=== PATIENT | female | born 1960 | race Caucasian/White ===

== ENCOUNTER 2018-03-12 11:12 | Emergency (ER) | payer OTHER, BC ==
--- NOTE | 2018-03-12 11:16 | PDOC ---
History of Present Illness - General Chief Complaint: Pain Stated Complaint: LEFT RIB PAIN History Source: Patient Exam Limitations: No Limitations - History of Present Illness Initial Comments: 03/12/18 11:13 57 yo f no pmhx here with c/o right sided rib pain. pt states was breaking up a fight between her dogs, and she fell hitting ribs on the dresser, now c/o severe left sided pain pain. happened at 3 in am, pain worse with movement, and deep inspiration. no f/c no leg swelling. no other injuries in fall. no loc no head trauma. 03/12/18 11:30 Past History - Past Medical History Allergies/Adverse Reactions: Allergies Allergy/AdvReac Type Severity Reaction Status Date / Time No Known Drug Allergies Allergy Unknown Verified 03/12/18 11:14 venom-honey bee Allergy Verified 03/12/18 11:14 [bee venom (honey bee)] SCALLOPS Allergy Unknown Hives Uncoded 03/12/18 11:21 Home Medications: Ambulatory Orders Duloxetine HCl [Cymbalta -] 60 mg PO BID 02/28/13 Valsartan [Diovan] 160 mg PO DAILY 02/28/13 Atorvastatin Ca [Lipitor] 10 mg PO HS 03/19/13 Hydrochlorothiazide [Hctz -] 25 mg PO DAILY 09/22/13 Flecainide Acetate 100 mg PO DAILY 03/12/18 Ibuprofen [Motrin -] 600 mg PO TID PRN #90 tablet MDD 3 03/12/18 Anemia: Yes Asthma: No Cancer: No Cardiac Disorders: Yes (MVP, BIGEMENY) CVA: No COPD: No CHF: No Dementia: No Diabetes: No GI Disorders: Yes (HIATAL HERNIA S/P SX) Disorders: No HTN: Yes Hypercholesterolemia: Yes Liver Disease: No Seizures: No Thyroid Disease: No - Surgical History Abdominal Surgery: Yes (HIATAL HERNIA) Appendectomy: No Cardiac Surgery: No Cholecystectomy: No Lung Surgery: (THORACENTESIS 2010) Neurologic Surgery: Yes Orthopedic Surgery: Yes (R. Knee, L. Ankle, L. Wrist, L. Knee) - Family Disease History Family Disease History: Heart Disease: Grandparents (mat chf), Father (htn), Mother (CHF) - Immunization History Td Vaccination: Yes Immunization Up to Date: Yes - Suicide/Smoking/Psychosocial Hx Smoking Status: No Smoking History: Never smoked Years of Tobacco Use: 0 Have you smoked in the past 12 months: No Number of Cigarettes Smoked Daily: 0 Cigars Per Day: 0 Hx Alcohol Use: Yes (SOCIAL) Drug/Substance Use Hx: No Substance Use Type: None Hx Substance Use Treatment: No Review of Systems - Review of Systems Constitutional: No: Chills, Diaphoresis HEENTM: No: Eye Pain Respiratory: Yes: Other (rib pain). No: Cough Cardiac (ROS): Yes: Chest Pain. No: Edema, Irregular Heart Rate ABD/GI: No: Abdominal Distended : No: Burning, Dysuria, Discharge Integumentary: No: Bruising, Change in Color All Other Systems: Reviewed and Negative *Physical Exam - Physical Exam Comments: 03/12/18 11:15 awake alert lungs clear bilaterally heart rrr nomrg. abd soft ntnd. ext wwp no edema. no deformity skin warm and dry. nuero alert oriented x 3. gcs 15. chest wall ttp.over left lateral ribs. no step off no crepitus. 03/12/18 11:30 Medical Decision Making - Medical Decision Making 03/12/18 11:15 differential fracture, ribs, pneumothorax. plan pain control, xray with rib series, reassess. 03/12/18 12:10 xray negative for any rib fracture. will dc with incentive spirometer and motrin told to followup pcp. *DC/Admit/Observation/Transfer Diagnosis at time of Disposition: Chest wall contusion - Discharge Dispostion Disposition: HOME Condition at time of disposition: Improved - Prescriptions Prescriptions: Ibuprofen [Motrin -] 600 mg PO TID PRN #90 tablet MDD 3 PRN Reason: Pain - Referrals - Patient Instructions Printed Discharge Instructions: Rib Fracture, DI for Rib Contusion Additional Instructions: your xrays are negative for any rib fracture. however, occasionally small breaks in the anterior ribs do not show up well on xray. there is stilll a chance you have a small break in the rib where you are having pain. treatment for this is pain control and taking deep breaths often to prevent pneumonia. you should use incentive spirometer 10 times every 2 hours to prevent lung from getting an infection. you shoud also take ibuprofen 600 mg every 8 hrs as needed for pain. take with food. in addition you can take tylenol 500 mg every 6 hrs. return for worsenig pain., shortness of breath, fever or any concerns. you should follow up with your primary doctor. call to schedule. - Post Discharge Activity
[2018-03-12] MEDS ORDERED: KETOROLAC TROMETHAMINE 30 MG/1 ML VIAL IM ONE (11:36)
[2018-03-12 11:43] VITALS: BP 114/76; PULSE 76; TEMP 98.2; BMI 27.3
[2018-03-12] MEDS ORDERED: KETOROLAC TROMETHAMINE 30 MG/1 ML VIAL ONE (11:52)
== END 2018-03-12 12:23 | disposition home or self-care (01) ==
LOC: FER 11:12
PROC: 3E0233Z Introduction of Anti-inflammatory into Muscle, Percutaneous Approach (ICD-10-PCS; principal; 2018-03-12)
DX: S20.219A Contusion of unspecified front wall of thorax, initial encounter (principal); W18.39XA Other fall on same level, initial encounter; Y93.89 Activity, other specified; Y92.89 Other specified places as the place of occurrence of the external cause
CPT/HCPCS: 71101-TC-FY; 99282-25

== ENCOUNTER 2019-05-05 18:06 | Inpatient (IN) | payer OTHER, BC ==
--- NOTE | 2019-05-05 19:10 | PDOC ---
History of Present Illness - General Chief Complaint: Syncope/Near Syncope Stated Complaint: FALL History Source: Patient Exam Limitations: No Limitations - History of Present Illness Initial Comments: 05/06/19 00:19 58 yo F with a hx of diverticulitis (last treated 1 month ago), fibromyalgia, and HTN presents to the emergency department with nausea, vomiting, abdominal pain with subsequent syncopal event. Per the patient, she states she began having her N/V symptoms at approximately 12 pm today. The patient was sitting on the toilet feeling lightheaded when she stood up and walked to the kitchen. She felt lightheaded and had a positive LOC. She believes she struck the left eyebrow against the ceramic countertop. Subsequent to the episode, she has had left facial pain and left sided temporal headache. In addition, she has LLQ and suprapubic pain that has been ongoing since 12 pm. Cramping like in nature with radiation throughout the abdomen without aggravating or relieving factors rated as 10/10. Allergies: NKDA Past History - Past Medical History Allergies/Adverse Reactions: Allergies Allergy/AdvReac Type Severity Reaction Status Date / Time No Known Drug Allergies Allergy Unknown Verified 05/05/19 18:57 venom-honey bee Allergy Verified 05/05/19 18:57 [bee venom (honey bee)] veal Allergy Severe Difficulty Uncoded 05/06/19 07:26 Breathing SCALLOPS Allergy Unknown Hives Uncoded 05/05/19 18:57 Home Medications: Ambulatory Orders Duloxetine HCl [Cymbalta -] 60 mg PO BID 02/28/13 Atorvastatin Ca [Lipitor] 20 mg PO HS 03/19/13 Hydrochlorothiazide [Hctz -] 25 mg PO DAILY 09/22/13 Flecainide Acetate 100 mg PO DAILY 03/12/18 Cyanocobalamin (Vitamin B-12) [Cyanocobalamin Injection] 1,000 mcg IJ WEEKLY Losartan Potassium [Cozaar] 100 mg PO DAILY 05/05/19 Metaxalone [Skelaxin] 800 mg PO TID PRN 05/05/19 Potassium Chloride [Klor-Con M20] 1 tab PO DAILY 05/05/19 Acetaminophen [Tylenol .Regular Strength -] 650 mg PO Q6H tablet 05/11/19 Amox-Tr/K Cl [Augmentin - 875Mg Tablet] 1 tab PO BID #10 tablet 05/11/19 Ibuprofen [Motrin -] 600 mg PO Q6H PRN tablet 05/11/19 Valacyclovir HCl [Valtrex -] 500 mg PO BID #14 tablet 05/11/19 Anemia: Yes Asthma: No Cancer: No Cardiac Disorders: Yes (MVP, BIGEMENY) CVA: No COPD: No CHF: No Dementia: No Diabetes: No GI Disorders: Yes (HIATAL HERNIA S/P SX) Disorders: No HTN: Yes Hypercholesterolemia: Yes Liver Disease: No Seizures: No Thyroid Disease: No - Surgical History Abdominal Surgery: Yes (HIATAL HERNIA) Appendectomy: No Cardiac Surgery: No Cholecystectomy: No Lung Surgery: (THORACENTESIS 2010) Neurologic Surgery: Yes Orthopedic Surgery: Yes (R. Knee, L. Ankle, L. Wrist, L. Knee) - Immunization History Td Vaccination: Yes Immunization Up to Date: Yes - Psycho Social/Smoking Cessation Hx Smoking Status: No Smoking History: Smoker current status UNK Years of Tobacco Use: 0 Have you smoked in the past 12 months: No Number of Cigarettes Smoked Daily: 0 Cigars Per Day: 0 Hx Alcohol Use: Yes (SOCIAL) Drug/Substance Use Hx: No Substance Use Type: None Hx Substance Use Treatment: No Review of Systems - Review of Systems Able to Perform ROS?: Yes Is the patient limited [place]ian proficient: No Constitutional: Yes: Chills, Diaphoresis, Fever. No: Weakness HEENTM: No: Eye Pain, Ear Pain, Nose Pain, Throat Pain, Mouth Pain Respiratory: No: Cough, Shortness of Breath, SOB with Exertion Cardiac (ROS): Yes: Lightheadedness, Syncope. No: Chest Pain, Palpitations, Chest Tightness ABD/GI: No: Constipated, Diarrhea, Nausea, Rectal Bleeding, Vomiting, Tarry Stools : Yes: Incontinence. No: Dysuria, Flank Pain, Hematuria Musculoskeletal: No: Back Pain, Joint Pain, Neck Pain Integumentary: No: Bruising, Erythema, Rash Neurological: Yes: Headache. No: Numbness, Tingling, Tremors Psychiatric: No: Change in Appetite Endocrine: No: Unexplained Weight Gain, Unexplained Weight Loss Hematologic/Lymphatic: No: Anemia *Physical Exam - Vital Signs Last Vital Signs Temp Pulse Resp BP Pulse Ox 76 26 H 127/60 98 05/05/19 18:55 05/05/19 18:55 05/05/19 18:55 05/05/19 18:55 - Physical Exam General Appearance: Yes: Nourished, Appropriately Dressed, Mild Distress, Other (<0.5 cm laceration to the left eyebrow superior/lateral. no contusions or depressions noted.). No: Intoxicated, Obese HEENT: positive: EOMI, YONNY, Normal ENT Inspection, Normal Voice, Symmetrical, TMs Normal, Pharynx Normal, Hearing Grossly Normal, Other (tenderness to palpation along the superior eyebrow on the left side. no contusions noted. mild swelling.). negative: Pale Conjunctivae, Scleral Icterus (R), Scleral Icterus (L), Muffled/Hoarse voice, Pharyngeal Erythema, Tonsillar Exudate, Tonsillar Erythema, Nasal Congestion, Rhinorrhea, Sinus Tenderness, Excessive drooling Neck: positive: Trachea midline, Supple. negative: Tender, Lymphadenopathy (R) , Lymphadenopathy (L), Tender lateral, Tender midline Respiratory/Chest: positive: Lungs Clear, Normal Breath Sounds. negative: Chest Tender, Respiratory Distress, Accessory Muscle Use, Paradoxal Breathing, Crackles, Rales, Rhonchi, Stridor, Wheezing Cardiovascular: positive: Regular Rhythm, Regular Rate, S1, S2. negative: Systolic Murmur Gastrointestinal/Abdominal: positive: Normal Bowel Sounds, Tender (Tender in the following areas with palpation: LUQ, LLQ, suprapubic, periumbilical, and epigastric region), Flat, Soft, Rebound. negative: Distended, Guarding Lymphatic: negative: Adenopathy Musculoskeletal: positive: Normal Inspection, Other (no step offs noted. no obvious ecchymosis to the back). negative: CVA Tenderness, Vertebral Tenderness Extremity: positive: Normal Capillary Refill, Normal Inspection, Normal Range of Motion. negative: Tender, Swelling, Calf Tenderness Integumentary: positive: Normal Color, Dry, Warm. negative: Swelling, Ecchymosis Neurologic: positive: roller gold leaf II-XII NML intact, Fully Oriented, Alert, Normal Mood/ Affect, Normal Response, Motor Strength 5/5. negative: EOM Palsy, Facial Droop , Sensory Deficit ED Treatment Course - LABORATORY CBC & Chemistry Diagram: 05/10/19 07:34 12/18/19 07:34 Medical Decision Making - Medical Decision Making 58 yo F with a hx of diverticulitis (last treated 1 month ago), fibromyalgia, and HTN presents to the emergency department with nausea, vomiting, abdominal pain with subsequent syncopal event. Initial vitals; Initial Vital Signs Pulse Resp BP Pulse Ox 76 26 H 127/60 98 05/05/19 18:55 05/05/19 18:55 05/05/19 18:55 05/05/19 18:55 Work up: patient presents to the emergency department s/p syncope after experiencing N/V earlier in the day with associative abdominal pain similar to her previous diverticulitis. Syncope ddx: cardiogenic vs metabolic vs hypovolemia vs infectious vs neurogenic. Likely the patient syncopized from infectious etiology given her concurrent N/V with abdominal pain. Will work up cardiac with EKG and enzymes. Will obtain cbc, cmp, lactic acid (to assess possible ischemia?), UA, urine culture, CT head, cervical spine, and neck. Will obtain Abdomen and pelvis CT with IV contrast to assess abdominal pain. ddx includes colitis vs diverticulitis (patient states this pain is similar to her previous episode) vs UTI vs pyelonephritis vs nephrolithiasis. Laboratory Tests 05/05/19 05/05/19 05/05/19 19:37 19:37 19:37 WBC 13.2 H RBC 4.40 Hgb 13.2 Hct 39.2 MCV 89.2 MCH 30.1 MCHC 33.7 RDW 13.8 Plt Count 420 D MPV 7.0 L Absolute Neuts (auto) 11.5 H Neutrophils % 86.7 H D Lymphocytes % 7.3 L D Monocytes % 5.4 Eosinophils % 0.0 D Basophils % 0.6 Nucleated RBC % 0 Sodium 128 L Potassium 3.8 Chloride 93 L Carbon Dioxide 27 Anion Gap 9 BUN 11.5 Creatinine 0.7 Est GFR (CKD-EPI)AfAm 109.15 Est GFR (CKD-EPI)NonAf 94.17 Random Glucose 124 H Lactic Acid Calcium 9.5 Magnesium 1.6 L Total Bilirubin 0.7 AST 16 ALT 19 Alkaline Phosphatase 76 Creatine Kinase 74 Troponin I < 0.02 Total Protein 6.9 Albumin 3.8 TSH 1.41 Urine Color Urine Appearance Urine pH Ur Specific [place] Urine Protein Urine Glucose (UA) Urine Ketones Urine Blood Urine Nitrite Urine Bilirubin Urine Urobilinogen Ur Leukocyte Esterase Urine WBC (Auto) Urine RBC (Auto) Urine Casts (Auto) U Epithel Cells (Auto) Urine Bacteria (Auto) 05/05/19 05/05/19 05/06/19 20:01 21:00 00:30 WBC RBC Hgb Hct MCV MCH MCHC RDW Plt Count MPV Absolute Neuts (auto) Neutrophils % Lymphocytes % Monocytes % Eosinophils % Basophils % Nucleated RBC % Sodium Potassium Chloride Carbon Dioxide Anion Gap BUN Creatinine Est GFR (CKD-EPI)AfAm Est GFR (CKD-EPI)NonAf Random Glucose Lactic Acid 2.3 H* 3.0 H* Calcium Magnesium Total Bilirubin AST ALT Alkaline Phosphatase Creatine Kinase Troponin I Total Protein Albumin TSH Urine Color Yellow Urine Appearance Cloudy Urine pH 7.0 Ur Specific [place] 1.020 Urine Protein Negative Urine Glucose (UA) Trace Urine Ketones Negative Urine Blood Trace Urine Nitrite Negative Urine Bilirubin Negative Urine Urobilinogen 1.0 Ur Leukocyte Esterase 2+ H Urine WBC (Auto) 16 Urine RBC (Auto) 41.9 Urine Casts (Auto) 1 U Epithel Cells (Auto) 3.1 Urine Bacteria (Auto) 127.2 Sutures were not needed for small laceration. repaired with dermabond with good approximation. patient on rectal temp was febrile 101.7 F. The patient's UA is positive for UTI. Patient's WBC are elevated with elevated lactic acid. Patient was given a total of 3 L of NS for fluid resuscitation with 8 mg of morphine and 1 gram of tylenol. Patient still having pain located diffusely throughout the abdomen most notable in the suprapubic and LLQ region. CT scan with IV contrast of the abdomen and pelvis shows "non specific free fluid" with an overdistended GB without cholecystitis signs with a dilated CBD of 0.8 cm. The patient's bladder was noted to be mildly distended. Diverticulosis noted but not diverticulitis. Zosyn was started on the patient given urinary findings and suspected intra-abdominal processes. The patient was reassessed after the scan. The patient stated she was unable to void but had sensation to do so. A cueva was placed with 1 L of urine output before clamping was done. A RUQ was ordered given on re-examination of abdomen patient was tender in the RUQ, RLQ, suprapubic, and LLQ. These right abdomen findings are new. Patient's repeat lactic acid elevated to 3 despite 3 liters of fluid resuscitation. I suspect the patient is having possible colitis vs diverticulitis vs cholecystitis given findings on the initial CT. Patient was admitted to hospitalist service for hyponatremia, UTI with sepsis like features with a possible secondary source of infection (GI vs GB). Patient was signed out to Dr. Carpenter for further management of the case. EKG: NSR with q waves in V2-V3 with TW flattening in III and aVF. No ST elevations or depressions. No arrhythmia noted. Discharge - Discharge Information Problems reviewed: Yes Clinical Impression/Diagnosis: Lactic acid increased Abdominal pain Qualifiers: Abdominal location: generalized Qualified Code(s): R10.84 - Generalized abdominal pain Syncope Qualifiers: Syncope type: unspecified Qualified Code(s): R55 - Syncope and collapse Condition: Guarded Disposition: VNS/HOME HEALTH CARE - Follow up/Referral - Patient Discharge Instructions - Post Discharge Activity
[2019-05-05] MEDS ORDERED: ACETAMINOPHEN 1000 MG/100 ML VIAL (NON FORMULARY) IVPB ONE (19:18)
[2019-05-05] MEDS ORDERED: SODIUM CHLORIDE 1,000 ML IV STA ×2 (19:18→22:56)
[2019-05-05] MEDS ORDERED: ACETAMINOPHEN INJECTION 100 ML IVPB ONE (19:29)
--- NOTE | 2019-05-05 19:47 | PDOC ---
Attending Attestation - Resident Resident Name: CathiMichele - ED Attending Attestation I have performed the following: I have examined & evaluated the patient, The case was reviewed & discussed with the resident, I agree w/resident's findings & plan - HPI HPI: 05/05/19 20:27 Pt was ambulating from the kitchen to the bathroom and she passed out and hit her head; lac to the left forehead. Pt LOC; grandson tried to wake her. Pt finally came to and she was brought by EMS to the ER. Pt is febrile 101.7F at this time. Pt had her flu shot this year. Pt has no SOB; No sore throat. No sick contacts. She has a hx of diverticulitis. SHe states that she has been taking prednisone for the last 3 days for her neck pain. SHe has only lower abd pain at this time. Pt has no rebound. Pt has pain in the suprapubic area when she urinates, but no burning. - Physicial Exam PE: 05/05/19 20:29 Agree with resident exam. Pt is febrile and flushed and dry skin Pt is A+Ox3 and she is answering questions Pt has no flank pain. Pt has bilat lower abd pain as well as suprapubic pain. Pt has no pitting edema Pt has normal HEENT Pt has No rashes. - Medical Decision Making 05/05/19 20:31 WBC 13 Pt febrile Possible diverticulitis/colitis vs UTI/Cystitis awaiting CHemistry before sending pt for a contrast CT scan 05/05/19 20:33 Pt has hyponatremia; mag is low. We will replete 05/05/19 22:20 Head/facial and cspine CT scans look normal; awaiting official result UA + leukocytes and [address] abd/pelvis in progress 05/05/19 23:30 CT abd read as overdistended bladder and non specific fluid in the upper abd. CBD dilation 05/05/19 23:[address] scan shows some air around the globe; ophtho follow up needed. Head CT normal Cspine CT normal; only DJD 05/05/19 23:35 05/05/19 23:43 Patient Name: ERROL IRWIN THIS IS A PRELIMINARY REPORT FROM [facility] DATE OF SERVICE: 2019-05-06 02:18:56 IMAGES: [id number] EXAM: ABDOMEN AND PELVIS CTA W/WO CONTRAST HISTORY: Rule out mesenteric ischemia COMPARISON: 05/05/19 FINDINGS: Lung bases are clear. The visualized cardiac chambers are normal size and configuration. There is increasing small amount of ascites. A few punctate foci of free air identified, suspicious for bowel perforation. No fluid loculation to suggest abscess. There is mild pelvic inflammation and sigmoid diverticulosis. Sigmoid diverticulitis is considered. Normal liver, gallbladder, pancreas, spleen, adrenal glands and kidneys. At moderate sized hiatal hernia is noted. There is no aortic dissection or aneurysm. No arterial or venous clot identified. There is no significant retroperitoneal lymphadenopathy. The appendix is. The uterus and adnexal structures are normal. Urinary bladder is collapsed by Guerrero catheter.. No discrete pelvic lymphadenopathy is identified. IMPRESSION: No vascular abnormalities. Increasing small amount of ascites and a few punctate foci of free air, highly suspicious for bowel perforation. Source of perforation is not clear, but sigmoid diverticulitis is considered. Moderate sized hiatal hernia. 05/06/19 04:17 Dr Coles is aware of the patient; she agrees that the patient will require ICU: given her perforated intestine/gut; hyponatremia; sepsis; UTI; fever; abd pain; and hypoxemia O2 sat on RA goes btwn 91%-96%.
[2019-05-05 19:48] LABS: BASO % 0.6 % (0-2.0); HEMATOCRIT 39.2 % (32.4-45.2); HEMOGLOBIN 13.2 GM/dL (10.7-15.3); LYMPH % 7.3 % (8-40); MCH 30.1 pg (25.7-33.7); MCHC 33.7 g/dl (32.0-36.0); MEAN CELL VOLUME 89.2 fl (80-96); MONO % 5.4 % (3.8-10.2); NEUT % 86.7 % (42.8-82.8); PLATELET COUNT 420 K/MM3 (134-434); RDW 13.8 % (11.6-15.6); WHITE BLOOD COUNT 13.2 K/mm3 (4.0-10.0)
[2019-05-05] MEDS ORDERED: morphine CARPU-JECT 4 MG/1 ML DISP.SYRIN IVPUSH ONE ×2 (19:54→22:56)
[2019-05-05] MEDS ORDERED: morphine SULFATE 4 MG/ML VIAL ONE ×2 (20:01→23:03)
[2019-05-05 20:32] LABS: ALBUMIN 3.8 g/dl (3.4-5.0); BILIRUBIN,TOTAL 0.7 mg/dL (0.2-1); BLOOD UREA NITROGEN 11.5 mg/dL (7-18); CALCIUM 9.5 mg/dL (8.5-10.1); CREATININE 0.7 mg/dL (0.55-1.3); MAGNESIUM 1.6 mg/dL (1.8-2.4); POTASSIUM 3.8 mmol/L (3.5-5.1); TOT PROT 6.9 g/dl (6.4-8.2)
[2019-05-05] MEDS ORDERED: SODIUM CHLORIDE 0.9% 500 ML INFUS.BAG IV ONE (20:32)
[2019-05-05] MEDS ORDERED: MAGNESIUM SULF 50% (8.12 MEQ/2 ML-1 GM VIAL) IVPB ONE (20:33)
[2019-05-05] MEDS ORDERED: MAGNESIUM SULFATE IN WATER 2 GM/50 ML IVPB IVPB ONE (20:39)
[2019-05-05] MEDS ORDERED: PIPERACILLIN/TAZOB 3.375 GM 3.375 GM in DEXTROSE 5%-WATER - 50 ML IVPB ONE (21:19)
[2019-05-05] MEDS ORDERED: PIPERACILLIN/TAZOB 3.375 GM 3.375 GM/50 ML BAG IVPB ONE (21:34)
[2019-05-05 21:42] LABS: EPI CELLS 3.1 /HPF (0-5/HPF); HYALINE CASTS 1 /lpf (0-8); URINE APPEARANCE CLOUDY; URINE BACTERIA 127.2 /hpf (NEGATIVE); URINE BILIRUBIN NEGATIVE (NEGATIVE); URINE COLOR YELLOW; URINE GLUCOSE (UA) TRACE (NEGATIVE); URINE KETONE NEGATIVE (NEGATIVE); URINE LEUK ESTERASE 2+ (NEGATIVE); URINE NITRITE NEGATIVE (NEGATIVE); URINE PROTEIN NEGATIVE (NEGATIVE); URINE WBC 16 /hpf (0-5)
[2019-05-06 00:15] LABS: URINE RBC 41.9 /hpf (0-4)
[2019-05-06] MEDS ORDERED: morphine CARPU-JECT 2 MG/1 ML DISP.SYRIN IVPUSH ONE (00:29)
[2019-05-06] MEDS ORDERED: MORPHINE SULFATE 2 MG/ML VIAL ONE (00:36)
--- NOTE | 2019-05-06 00:36 | PDOC ---
*Physical Exam - Vital Signs Last Vital Signs Temp Pulse Resp BP Pulse Ox 99.1 F 66 20 112/71 99 05/06/19 00:02 05/06/19 00:31 05/06/19 00:31 05/06/19 00:31 05/06/19 00:31 ED Treatment Course - LABORATORY CBC & Chemistry Diagram: 05/05/19 19:37 05/05/19 19:37 - ADDITIONAL ORDERS Additional order review: Laboratory Results 05/05/19 05/05/19 05/05/19 21:00 20:01 19:37 Sodium Potassium Chloride Carbon Dioxide Anion Gap BUN Creatinine Est GFR (CKD-EPI)AfAm Est GFR (CKD-EPI)NonAf Random Glucose Lactic Acid 2.3 H* Calcium Magnesium Total Bilirubin AST ALT Alkaline Phosphatase Creatine Kinase 74 Troponin I < 0.02 Total Protein Albumin TSH Urine Color Yellow Urine Appearance Cloudy Urine pH 7.0 Ur Specific [place] 1.020 Urine Protein Negative Urine Glucose (UA) Trace Urine Ketones Negative Urine Blood Trace Urine Nitrite Negative Urine Bilirubin Negative Urine Urobilinogen 1.0 Ur Leukocyte Esterase 2+ H Urine WBC (Auto) 16 Urine RBC (Auto) 41.9 Urine Casts (Auto) 1 U Epithel Cells (Auto) 3.1 Urine Bacteria (Auto) 127.2 05/05/19 19:37 Sodium 128 L Potassium 3.8 Chloride 93 L Carbon Dioxide 27 Anion Gap 9 BUN 11.5 Creatinine 0.7 Est GFR (CKD-EPI)AfAm 109.15 Est GFR (CKD-EPI)NonAf 94.17 Random Glucose 124 H Lactic Acid Calcium 9.5 Magnesium 1.6 L Total Bilirubin 0.7 AST 16 ALT 19 Alkaline Phosphatase 76 Creatine Kinase Troponin I Total Protein 6.9 Albumin 3.8 TSH 1.41 Urine Color Urine Appearance Urine pH Ur Specific [place] Urine Protein Urine Glucose (UA) Urine Ketones Urine Blood Urine Nitrite Urine Bilirubin Urine Urobilinogen Ur Leukocyte Esterase Urine WBC (Auto) Urine RBC (Auto) Urine Casts (Auto) U Epithel Cells (Auto) Urine Bacteria (Auto) 05/05/19 19:37 RBC 4.40 MCV 89.2 MCHC 33.7 RDW 13.8 MPV 7.0 L Neutrophils % 86.7 H D Lymphocytes % 7.3 L D Monocytes % 5.4 Eosinophils % 0.0 D Basophils % 0.6 - Medications Given in the ED: ED Medications Discontinued Medications Generic Name Dose Route Start Last Admin Trade Name Cornelius PRN Reason Stop Dose Admin Acetaminophen 1,000 mg 05/05/19 19:18 05/05/19 19:58 Ofirmev Injection - IVPB 05/05/19 19:19 1,000 mg ONCE ONE Administration Sodium Chloride 1,000 mls @ 1,000 mls/hr 05/05/19 19:18 05/05/19 19:57 Normal Saline - IV 05/05/19 20:17 1,000 mls/hr ASDIR STA Administration Piperacillin Sod/Tazobactam 50 mls @ 100 mls/hr 05/05/19 21:19 05/05/19 23:00 Sod 3.375 gm/ Dextrose IVPB 05/05/19 21:48 100 mls/hr ONCE ONE Administration Protocol Sodium Chloride 1,000 mls @ 1,000 mls/hr 05/05/19 22:56 05/05/19 23:15 Normal Saline - IV 05/05/19 23:55 1,000 mls/hr ASDIR STA Administration Magnesium Sulfate 2 gm 05/05/19 20:33 05/05/19 20:54 Magnesium Sulfate IVPB 05/05/19 20:34 2 gm ONCE ONE Administration Morphine Sulfate 4 mg 05/05/19 19:54 05/05/19 20:04 Morphine Injection - IVPUSH 05/05/19 19:55 4 mg ONCE ONE Administration Morphine Sulfate 4 mg 05/05/19 22:56 05/05/19 23:15 Morphine Injection - IVPUSH 05/05/19 22:57 4 mg ONCE ONE Administration Sodium Chloride 1,000 ml 05/05/19 20:32 05/05/19 20:36 Normal Saline - IV 05/05/19 20:33 1,000 ml ONCE ONE Administration Medical Decision Making - Medical Decision Making Pt was signed out to me by resident Dr. Winkler, who explained the presentation, ED course, any pending results, and needed interventions. Pending results include RUQ US. Pt is currently is in pain, but just received cueva catheter for abd pressure, and is receiving additional 2 mg IV morphine (10 mg IV total). Hospitalist team at bedside to see pt, pt has been admitted. 05/06/19 00:34 Pt with continued abdominal pain, rising lactic acid --- ordered CTA to evaluate for ischemia CTA showed small punctate perforations vs diverticulitis; pt has received 3L IV NS and zosyn 05/06/19 04:28 Discussed case with surgery (Dr Coles). Pt switched to ICU admission. PT now comfortable after pain control (10 mg IV morphine total, 2 mg IV dilaudid ) 05/06/19 04:44 Discharge - Discharge Information Problems reviewed: Yes Clinical Impression/Diagnosis: Perforated abdominal viscus Abdominal pain Qualifiers: Abdominal location: generalized Qualified Code(s): R10.84 - Generalized abdominal pain Syncope Qualifiers: Syncope type: unspecified Qualified Code(s): R55 - Syncope and collapse Condition: Guarded - Admission Yes - Follow up/Referral - Patient Discharge Instructions - Post Discharge Activity
--- NOTE | 2019-05-06 00:50 | HP ---
Admitting History and Physical - Primary Care Physician PCP: Dr. Pereira - Admission Chief Complaint: post fall, ? syncope History of Present Illness: 58 year old female with PMHx of diverticulitis (last treated 1 month ago), fibromyalgia, and HTN arrived to Emergency department with complain of nausea, vomiting, abdominal pain with subsequent syncopal event. Per patient, she states she began having her N/V symptoms at approximately 12 pm today. The patient was sitting on the toilet feeling lightheaded when she stood up and walked to the kitchen. She felt lightheaded and had a positive LOC. She believes she struck the left eyebrow against the ceramic counter top. Subsequent to the episode, she has had left facial pain and left sided temporal headache. In addition, patient has LLQ and suprapubic pain. Patient denies fever , chills, CP, SOB noted. History Source: Patient, Family Member Limitations to Obtaining History: No Limitations - Past Medical History Cardiovascular: Yes: HTN, Hyperlipdemia, Other (arrhythmias (MVP, BIGEMENY)) Gastrointestinal: Yes: Diverticulosis Heme/Onc: Yes: Anemia Rheumatology: Yes: Fibromyalgia - Past Surgical History Past Surgical History: Yes: Joint Replacement ((R. Knee, L. Ankle, L. Wrist, L. Knee)) Additional Past Surgical History: (THORACENTESIS 2010) - Smoking History Smoking history: Smoker current status UNK Have you smoked in the past 12 months: No Aproximately how many cigarettes per day: 0 - Alcohol/Substance Use Hx Alcohol Use: Yes (SOCIAL) History of Substance Use: reports: None - Social History Usual Living Arrangement: Yes: With Child ADL: Independent History of Recent Travel: No Home Medications - Allergies Allergies/Adverse Reactions: Allergies Allergy/AdvReac Type Severity Reaction Status Date / Time No Known Drug Allergies Allergy Unknown Verified 05/05/19 18:57 venom-honey bee Allergy Verified 05/05/19 18:57 [bee venom (honey bee)] SCALLOPS Allergy Unknown Hives Uncoded 05/05/19 18:57 - Home Medications Home Medications: Ambulatory Orders Duloxetine HCl [Cymbalta -] 60 mg PO BID 02/28/13 Atorvastatin Ca [Lipitor] 20 mg PO HS 03/19/13 Hydrochlorothiazide [Hctz -] 25 mg PO DAILY 05/02/14 Flecainide Acetate 100 mg PO DAILY 03/12/18 Cyanocobalamin (Vitamin B-12) [Cyanocobalamin Injection] 1,000 mcg IJ WEEKLY Losartan Potassium [Cozaar] 100 mg PO DAILY 05/05/19 Metaxalone [Skelaxin] 800 mg PO TID PRN 05/05/19 Methylprednisolone [Methylpred Dp] 4 mg PO ASDIR 05/05/19 Potassium Chloride [Klor-Con M20] 1 tab PO DAILY 05/05/19 Family Medical History Family History: Denies Review of Systems - Review of Systems Constitutional: reports: Other (cut to the left forehead.) Eyes: reports: No Symptoms HENT: reports: No Symptoms Neck: reports: No Symptoms Cardiovascular: reports: No Symptoms Respiratory: reports: No Symptoms Gastrointestinal: reports: Abdominal Pain, Nausea, Vomiting Genitourinary: reports: No Symptoms Musculoskeletal: reports: No Symptoms Integumentary: reports: No Symptoms Neurological: reports: Headache, Syncope Endocrine: reports: No Symptoms Hematology/Lymphatic: reports: No Symptoms Psychiatric: reports: No Symptoms Physical Examination Vital Signs: Vital Signs Temperature 99.1 F 05/06/19 00:02 Pulse Rate 66 05/06/19 00:31 Respiratory Rate 20 05/06/19 00:31 Blood Pressure 112/71 05/06/19 00:31 O2 Sat by Pulse Oximetry (%) 99 05/06/19 00:31 Constitutional: Yes: Moderate Distress Eyes: Yes: Conjunctiva Clear, EOM Intact HENT: Yes: Atraumatic, Normocephalic Neck: Yes: Supple, Trachea Midline Cardiovascular: Yes: Regular Rate and Rhythm, S1, S2 Respiratory: Yes: Regular, CTA Bilaterally Gastrointestinal: Yes: Normal Bowel Sounds, Soft Renal/: Yes: Bladder Distention, CVA Tenderness - Left, CVA Tenderness - Right Musculoskeletal: Yes: Muscle Pain Extremities: Yes: WNL Edema: No Peripheral Pulses WNL: Yes Neurological: Yes: Alert, Oriented Psychiatric: Yes: Alert, Oriented Labs: CBC, BMP 05/05/19 19:37 05/05/19 19:37 Imaging - Results Chest X-ray: Report Reviewed (no acute infiltrate) Cat Scan: Report Reviewed (Abd pain: mild early retention,overdistended bladder and non specific fluid in the upper abd. CBD dilation Head CT: no acute intracranial pathology Facial bone CT: soft tissue injury, no hematoma, some air around the globe. Cervical CT: no fracture, only DJD) Other: Report Reviewed (UA + leukocytes and 127 bacteria) Problem List - Problems (1) UTI (urinary tract infection) Code(s): N39.0 - URINARY TRACT INFECTION, SITE NOT SPECIFIED (2) Elevated lactic acid level Code(s): R79.89 - OTHER SPECIFIED ABNORMAL FINDINGS OF BLOOD CHEMISTRY (3) Abdominal pain Code(s): R10.9 - UNSPECIFIED ABDOMINAL PAIN Qualifiers: Qualified Code(s): R10.84 - Generalized abdominal pain (4) Syncope Code(s): R55 - SYNCOPE AND COLLAPSE Qualifiers: Qualified Code(s): R55 - Syncope and collapse (5) Hyponatremia Code(s): E87.1 - HYPO-OSMOLALITY AND HYPONATREMIA (6) Hypomagnesemia Code(s): E83.42 - HYPOMAGNESEMIA (7) Fibromyalgia Code(s): M79.7 - FIBROMYALGIA (8) HTN (hypertension) Code(s): I10 - ESSENTIAL (PRIMARY) HYPERTENSION (9) Ventricular bigeminy Code(s): I49.9 - CARDIAC ARRHYTHMIA, UNSPECIFIED (10) Diverticulosis Code(s): K57.90 - DVRTCLOS OF INTEST, PART UNSP, W/O PERF OR ABSCESS W/O BLEED Assessment/Plan 58 year old female with PMHx of diverticulitis (last treated 1 month ago), fibromyalgia, and HTN arrived to Emergency department with complain of nausea, vomiting, abdominal pain with subsequent syncopal event. Per patient, she states she began having her N/V symptoms at approximately 12 pm today. The patient was sitting on the toilet feeling lightheaded when she stood up and walked to the kitchen. She felt lightheaded and had a positive LOC. She believes she struck the left eyebrow against the ceramic counter top. Subsequent to the episode, she has had left facial pain and left sided temporal headache. In addition, patient has LLQ and suprapubic pain. # Syncope # Sepsis 2/2 UTI vs GI ? CBD dilation # Elevated lactic acidosis Wbc: 13.2 Lactic acid: 2.3 -> 3.0, follow trend Abd pain: mild early retention,overdistended bladder and non specific fluid in the upper abd. CBD dilation Head CT: no acute intracranial pathology Facial bone CT: soft tissue injury, no hematoma, some air around the globe. Cervical CT: no fracture, only DJD UA + leukocytes and 127 bacteria -Total of 10 mg IV morphine given in ED -IV tylenol given, IV Zosyn gviven x1 -Guerrero catheter inserted, noted with 1000 ml output -RUQ US: Mild CBD nonspecific, a distal CBD ? stone -CTA ABD: increased small amount of ascites, a few punctate foci of free air highly suspicious for bowel perforation ? source sigmoid diverticulitis is considered -ED following up with Dr. Coles admit to ICU - follow up ID in AM - follow up sx in AM - pain management - continue with Zosyn - follow up cbc, BMP # Hyponatremia # Hypomagnesemia - s/p 3 L NS, and Magnesium 2 mg IVPB - continue with IV fluids - follow up BMP, replete lytes as needed # Fibromyalgia Duloxetine HCl 60 mg PO BID Metaxalone 800 mg PO TID PRN # HTN/HLD Atorvastatin Ca 20 mg PO HS Hydrochlorothiazide 25 mg PO DAILY Losartan Potassium 100 mg PO DAILY # H/O MVP, BIGEMENY Flecainide Acetate 100 mg PO DAILY VTE: Heparin TID SQ FEN: NPO, replete lytes as needed Dispo: ICU admit Visit type - Emergency Visit Emergency Visit: Yes ED Registration Date: 05/06/19 Care time: The patient presented to the Emergency Department on the above date and was hospitalized for further evaluation of their emergent condition. - New Patient This patient is new to me today: Yes Date on this admission: 05/06/19 - Critical Care Critical Care patient: No
[2019-05-06] MEDS ORDERED: HYDROmorphone HCL CARPU-JECT 2 MG/1 ML DISP.SYRIN IVPUSH ONE (01:30)
[2019-05-06] MEDS ORDERED: HYDROmorphone HCl 2 MG/ML VIAL ONE (01:37)
[2019-05-06] MEDS ORDERED: LACTATED RINGERS SOLUTION 1,000 ML/1,000 ML INFUS.BAG IV SCH (03:00)
[2019-05-06] MEDS ORDERED: ACETAMINOPHEN 1000 MG/100 ML VIAL (NON FORMULARY) IVPB ONE (03:28)
[2019-05-06] MEDS ORDERED: ACETAMINOPHEN INJECTION 100 ML IVPB ONE ×2 (03:32→09:34)
[2019-05-06] MEDS ORDERED: KCL 10 MEQ IVPB 100 ML IVPB SCH (04:15)
--- NOTE | 2019-05-06 05:13 | PN ---
Physical Exam: SUBJECTIVE: Patient seen and examined OBJECTIVE: Vital Signs Period Temp Pulse Resp BP Sys/Colvin Pulse Ox Last 24 Hr 99.1 F-101.7 F 66-96 20-26 112-150/60-79 95-99 GENERAL: The patient is awake, alert, and fully oriented, in no acute distress. HEAD: Normal with no signs of trauma. EYES: PERRL, extraocular movements intact, sclera anicteric, conjunctiva clear. No ptosis. ENT: Ears normal, nares patent, oropharynx clear without exudates, moist mucous membranes. NECK: Trachea midline, full range of motion, supple. LUNGS: Breath sounds equal, clear to auscultation bilaterally, no wheezes, no crackles, no accessory muscle use. HEART: Regular rate and rhythm, S1, S2 without murmur, rub or gallop. ABDOMEN: Soft, nontender, nondistended, normoactive bowel sounds, no guarding, no rebound, no hepatosplenomegaly, no masses. EXTREMITIES: 2+ pulses, warm, well-perfused, no edema. NEUROLOGICAL: Cranial nerves II through XII grossly intact. Normal speech, gait not observed. PSYCH: Normal mood, normal affect. SKIN: Warm, dry, normal turgor, no rashes or lesions noted Laboratory Results - last 24 hr 05/05/19 05/05/19 05/05/19 19:37 19:37 19:37 WBC 13.2 H RBC 4.40 Hgb 13.2 Hct 39.2 MCV 89.2 MCH 30.1 MCHC 33.7 RDW 13.8 Plt Count 420 D MPV 7.0 L Absolute Neuts (auto) 11.5 H Neutrophils % 86.7 H D Lymphocytes % 7.3 L D Monocytes % 5.4 Eosinophils % 0.0 D Basophils % 0.6 Nucleated RBC % 0 Sodium 128 L Potassium 3.8 Chloride 93 L Carbon Dioxide 27 Anion Gap 9 BUN 11.5 Creatinine 0.7 Est GFR (CKD-EPI)AfAm 109.15 Est GFR (CKD-EPI)NonAf 94.17 Random Glucose 124 H Lactic Acid Calcium 9.5 Magnesium 1.6 L Total Bilirubin 0.7 AST 16 ALT 19 Alkaline Phosphatase 76 Creatine Kinase 74 Troponin I < 0.02 Total Protein 6.9 Albumin 3.8 TSH 1.41 Urine Color Urine Appearance Urine pH Ur Specific [place] Urine Protein Urine Glucose (UA) Urine Ketones Urine Blood Urine Nitrite Urine Bilirubin Urine Urobilinogen Ur Leukocyte Esterase Urine WBC (Auto) Urine RBC (Auto) Urine Casts (Auto) U Epithel Cells (Auto) Urine Bacteria (Auto) 05/05/19 05/05/19 05/06/19 20:01 21:00 00:30 WBC RBC Hgb Hct MCV MCH MCHC RDW Plt Count MPV Absolute Neuts (auto) Neutrophils % Lymphocytes % Monocytes % Eosinophils % Basophils % Nucleated RBC % Sodium Potassium Chloride Carbon Dioxide Anion Gap BUN Creatinine Est GFR (CKD-EPI)AfAm Est GFR (CKD-EPI)NonAf Random Glucose Lactic Acid 2.3 H* 3.0 H* Calcium Magnesium Total Bilirubin AST ALT Alkaline Phosphatase Creatine Kinase Troponin I Total Protein Albumin TSH Urine Color Yellow Urine Appearance Cloudy Urine pH 7.0 Ur Specific [place] 1.020 Urine Protein Negative Urine Glucose (UA) Trace Urine Ketones Negative Urine Blood Trace Urine Nitrite Negative Urine Bilirubin Negative Urine Urobilinogen 1.0 Ur Leukocyte Esterase 2+ H Urine WBC (Auto) 16 Urine RBC (Auto) 41.9 Urine Casts (Auto) 1 U Epithel Cells (Auto) 3.1 Urine Bacteria (Auto) 127.2 05/06/19 03:10 WBC RBC Hgb Hct MCV MCH MCHC RDW Plt Count MPV Absolute Neuts (auto) Neutrophils % Lymphocytes % Monocytes % Eosinophils % Basophils % Nucleated RBC % Sodium Potassium Chloride Carbon Dioxide Anion Gap BUN Creatinine Est GFR (CKD-EPI)AfAm Est GFR (CKD-EPI)NonAf Random Glucose Lactic Acid 2.2 H* Calcium Magnesium Total Bilirubin AST ALT Alkaline Phosphatase Creatine Kinase Troponin I Total Protein Albumin TSH Urine Color Urine Appearance Urine pH Ur Specific [place] Urine Protein Urine Glucose (UA) Urine Ketones Urine Blood Urine Nitrite Urine Bilirubin Urine Urobilinogen Ur Leukocyte Esterase Urine WBC (Auto) Urine RBC (Auto) Urine Casts (Auto) U Epithel Cells (Auto) Urine Bacteria (Auto) Active Medications Generic Name Dose Route Start Last Admin Trade Name Freq PRN Reason Stop Dose Admin Lactated Ringer's 1,000 ml in 1,000 mls @ 150 mls/hr 05/06/19 05:04 Lactated Ringers Solution IV ASDIR [facility] ASSESSMENT/PLAN: ATTENDING PHYSICIAN STATEMENT I saw and evaluated the patient. I reviewed the resident's note and discussed the case with the resident. I agree with the resident's findings and plan as documented. SUBJECTIVE: OBJECTIVE: ASSESSMENT AND PLAN:
--- NOTE | 2019-05-06 05:14 | CONSULT ---
Consultation: REQUESTING PROVIDER: CONSULT REQUEST: We have been asked to medically evaluate this patient for ICU admission due to suspected bowel perforation. HISTORY OF PRESENT ILLNESS: 58 y/o/f with PMHx of diverticulitis (last treated 1 month ago), fibromyalgia, and HTN who presented to the ER s/p syncopal event that occurred around noon yesterday. After patient got up from the toilet she was talking to her kitchen when she got dizzy, lost consciousness, and fell to the floor. She is unsure how long she was on the ground for as her grandson found her on the floor. She denies a headache currently. She started having LLQ abd pain prior to arrival in ED but it steadily worsened during her time in the ED. Patient had a small laceration on the left side of her forehead which was repair by ED staff with dermabond. She had head and cervical spine CTs which were negative for intracranial pathology and fracture. Her initial CT abd scan only show some nonspecific free fluid but repeat CT abd scan with/without contrast showed increasing amount of ascites and small punctate areas of free air concerning for bowel perforation. Surgery was consulted by the ED staff and will see the patient in the morning. Patient lying in bed in moderate comfort after receiving pain medication and fluid resuscitation in the ED. She denies any current chest pain, N/V/D, fevers , chills, dizzyness. She has been constipated the last two days but normally has no issues with bowel movements. Patient denies any bloody bowel movements. Surgical Hx: Hysterectomy, Hiatal hernia repair, multiple MSK surgeries REVIEW OF SYSTEMS: As per HPI PHYSICAL EXAMINATION Vital Signs - 24 hr 05/05/19 05/05/19 05/06/19 18:55 19:54 00:02 Temperature 101.7 F H 99.1 F Pulse Rate 76 Pulse Rate [ Apical] Respiratory 26 H Rate Blood Pressure 127/60 Blood Pressure [Right Arm] O2 Sat by Pulse 98 Oximetry (%) 05/06/19 05/06/19 00:31 03:19 Temperature Pulse Rate Pulse Rate [ 66 96 H Apical] Respiratory 20 20 Rate Blood Pressure Blood Pressure 112/71 150/79 [Right Arm] O2 Sat by Pulse 99 95 Oximetry (%) GENERAL: Awake, alert, and fully oriented, mild distress due to pain HEAD: Normal with no signs of trauma. EYES: PERRL, EOMI, no scleral icterus EARS, NOSE, THROAT: oropharynx clear without exudates. Moist mucous membranes. NECK: trachea midline, supple LUNGS: Breath sounds equal, clear to auscultation bilaterally. No wheezes, and no crackles. No accessory muscle use. HEART: RRR, murmur noted ABDOMEN: Soft, nondistended, diffuse tenderness to palpation worse over lower quadrants EXTREMITIES: 2+ pulses, warm, well-perfused. No calf tenderness. No peripheral edema. NEUROLOGICAL: Normal speech, gait no observed. Sensation intact throughout PSYCHIATRIC: Cooperative. Good eye contact. Appropriate mood and affect. SKIN: Warm, dry Laboratory Results - last 24 hr 05/05/19 05/05/19 05/05/19 19:37 19:37 19:37 WBC 13.2 H RBC 4.40 Hgb 13.2 Hct 39.2 MCV 89.2 MCH 30.1 MCHC 33.7 RDW 13.8 Plt Count 420 D MPV 7.0 L Absolute Neuts (auto) 11.5 H Neutrophils % 86.7 H D Lymphocytes % 7.3 L D Monocytes % 5.4 Eosinophils % 0.0 D Basophils % 0.6 Nucleated RBC % 0 Sodium 128 L Potassium 3.8 Chloride 93 L Carbon Dioxide 27 Anion Gap 9 BUN 11.5 Creatinine 0.7 Est GFR (CKD-EPI)AfAm 109.15 Est GFR (CKD-EPI)NonAf 94.17 Random Glucose 124 H Lactic Acid Calcium 9.5 Magnesium 1.6 L Total Bilirubin 0.7 AST 16 ALT 19 Alkaline Phosphatase 76 Creatine Kinase 74 Troponin I < 0.02 Total Protein 6.9 Albumin 3.8 TSH 1.41 Urine Color Urine Appearance Urine pH Ur Specific [place] Urine Protein Urine Glucose (UA) Urine Ketones Urine Blood Urine Nitrite Urine Bilirubin Urine Urobilinogen Ur Leukocyte Esterase Urine WBC (Auto) Urine RBC (Auto) Urine Casts (Auto) U Epithel Cells (Auto) Urine Bacteria (Auto) 05/05/19 05/05/19 05/06/19 20:01 21:00 00:30 WBC RBC Hgb Hct MCV MCH MCHC RDW Plt Count MPV Absolute Neuts (auto) Neutrophils % Lymphocytes % Monocytes % Eosinophils % Basophils % Nucleated RBC % Sodium Potassium Chloride Carbon Dioxide Anion Gap BUN Creatinine Est GFR (CKD-EPI)AfAm Est GFR (CKD-EPI)NonAf Random Glucose Lactic Acid 2.3 H* 3.0 H* Calcium Magnesium Total Bilirubin AST ALT Alkaline Phosphatase Creatine Kinase Troponin I Total Protein Albumin TSH Urine Color Yellow Urine Appearance Cloudy Urine pH 7.0 Ur Specific [place] 1.020 Urine Protein Negative Urine Glucose (UA) Trace Urine Ketones Negative Urine Blood Trace Urine Nitrite Negative Urine Bilirubin Negative Urine Urobilinogen 1.0 Ur Leukocyte Esterase 2+ H Urine WBC (Auto) 16 Urine RBC (Auto) 41.9 Urine Casts (Auto) 1 U Epithel Cells (Auto) 3.1 Urine Bacteria (Auto) 127.2 05/06/19 03:10 WBC RBC Hgb Hct MCV MCH MCHC RDW Plt Count MPV Absolute Neuts (auto) Neutrophils % Lymphocytes % Monocytes % Eosinophils % Basophils % Nucleated RBC % Sodium Potassium Chloride Carbon Dioxide Anion Gap BUN Creatinine Est GFR (CKD-EPI)AfAm Est GFR (CKD-EPI)NonAf Random Glucose Lactic Acid 2.2 H* Calcium Magnesium Total Bilirubin AST ALT Alkaline Phosphatase Creatine Kinase Troponin I Total Protein Albumin TSH Urine Color Urine Appearance Urine pH Ur Specific [place] Urine Protein Urine Glucose (UA) Urine Ketones Urine Blood Urine Nitrite Urine Bilirubin Urine Urobilinogen Ur Leukocyte Esterase Urine WBC (Auto) Urine RBC (Auto) Urine Casts (Auto) U Epithel Cells (Auto) Urine Bacteria (Auto) Active Medications Generic Name Dose Route Start Last Admin Trade Name Freq PRN Reason Stop Dose Admin Lactated Ringer's 1,000 ml in 1,000 mls @ 150 mls/hr 05/06/19 05:04 Lactated Ringers Solution IV ASDIR [facility] ASSESSMENT/PLAN: 58 y/o/f with PMHx of diverticulitis (last treated 1 month ago), fibromyalgia, and HTN who presented to the ER s/p syncopal event that occurred around noon yesterday and worsening abd pain. Her initial CT abd scan only show some nonspecific free fluid but repeat CT abd scan with/without contrast showed increasing amount of ascites and small punctate areas of free air concerning for bowel perforation. Surgery was consulted by the ED staff and will see the patient in the morning. Admitted to ICU for close monitoring. #Free air in bowel 2/2 ?sigmoid diverticulitis #Sepsis 2/2 UTI vs. GI source? #Abdominal pain #Syncope #Forehead laceration s/p repair with dermabond #Lactic acidosis #HTN #Fibromyalgia #Hypomag #Hyponatremia - CT abd w/without contrast - No vascular abnormalities. Increasing small amount of ascites and a few punctate foci of free air, highly suspicious for bowel perforation. Source of perforation is not clear, but sigmoid diverticulitis is considered. Moderate sized hiatal hernia. - Limited Abd U/S - Limited visualization of the gallbladder without obvious gallbladder abnormalities.Mild CBD dilation is nonspecific, but a distal CBD stone cannot be excluded. - CT head/cervical spine without acute intracranial pathology, no fractures noted - Continue maintenance fluids, LR @150mls/hr - Zosyn x1 in ED, Continue Zosyn - Hemodynamically stable at this time - Monitor and replete lytes as needed - Continue home medications as per primary team - F/U lactic acid - F/U cultures - Surgery consulted - Consider ID consult - Consider GI consult - Hold chemical AC in anticipation of possible surgical procedure #Disposition - Admit for ICU monitoring Visit type - Emergency Visit Emergency Visit: Yes ED Registration Date: 05/06/19 Care time: The patient presented to the Emergency Department on the above date and was hospitalized for further evaluation of their emergent condition. - New Patient This patient is new to me today: Yes Date on this admission: 05/06/19 - Critical Care Critical Care patient: Yes Total Critical Care Time (in minutes): 36 Critical Care Statement: The care of this patient involved high complexity decision making to prevent further life threatening deterioration of the patient 's condition and/or to evaluate & treat vital organ system(s) failure or risk of failure. ATTENDING PHYSICIAN STATEMENT I saw and evaluated the patient. I reviewed the resident's note and discussed the case with the resident. I agree with the resident's findings and plan as documented. SUBJECTIVE: OBJECTIVE: ASSESSMENT AND PLAN:
[2019-05-06 05:19] LABS: BASO % 0.2 % (0-2.0); EOS % 0.1 % (0-4.5); HEMATOCRIT 36.1 % (32.4-45.2); HEMOGLOBIN 12.3 GM/dL (10.7-15.3); LYMPH % 11.8 % (8-40); MCH 30.2 pg (25.7-33.7); MEAN CELL VOLUME 88.8 fl (80-96); MEAN PLT VOLUME 7.1 fl (7.5-11.1); MONO % 4.3 % (3.8-10.2); NEUT % 83.6 % (42.8-82.8); PLATELET COUNT 362 K/MM3 (134-434); RBC 4.07 M/mm3 (3.60-5.2); RDW 14.2 % (11.6-15.6); WHITE BLOOD COUNT 2.9 K/mm3 (4.0-10.0)
[2019-05-06 05:32] LABS: INR 0.96 (0.83-1.09); PROTHROMBIN TIME (PATIENT) 11.3 SEC (9.7-13.0)
[2019-05-06 05:48] LABS: ALBUMIN 3.1 g/dl (3.4-5.0); BILIRUBIN,TOTAL 0.6 mg/dL (0.2-1); BLOOD UREA NITROGEN 8.4 mg/dL (7-18); CALCIUM 8.2 mg/dL (8.5-10.1); CREATININE 0.6 mg/dL (0.55-1.3); POTASSIUM 3.5 mmol/L (3.5-5.1); TOT PROT 5.8 g/dl (6.4-8.2)
[2019-05-06] MEDS ORDERED: morphine CARPU-JECT 4 MG/1 ML DISP.SYRIN IVPUSH ONE (05:57)
[2019-05-06] MEDS ORDERED: MORPHINE SULFATE 2 MG/ML VIAL IVPUSH PRN (05:59)
[2019-05-06] MEDS ORDERED: PIPERACILLIN/TAZOB 3.375 GM 3.375 GM in DEXTROSE 5%-WATER - 50 ML IVPB ONE (06:00)
[2019-05-06] MEDS ORDERED: HYDROmorphone HCl 2 MG/ML VIAL IVPUSH ONE (06:20)
[2019-05-06] MEDS ORDERED: PIPERACILLIN/TAZOBACTAM 3.375 GM VIAL IVPB ONE (06:56)
[2019-05-06] MEDS ORDERED: DEXTROSE 5%-WATER - 50 ML IVPB ONE (06:57)
--- NOTE | 2019-05-06 07:00 | CONSULT ---
Consult Consult Specialty:: General Surgery Referred by:: Opal Devlin Reason for Consultation:: perforated viscus, peritonitis - History of Present Illness Chief Complaint: lower abdominal pain, nausea, syncope w/fall History of Present Illness: 58yo F with HTN, fibromyalgia, sleep apnea (not on CPAP), MVP/bigeminy, s/p hiatal hernia repair 10 yrs ago, hysterectomy, joint replacements, h/o diverticulitis with recent abx treatment for same about 3 weeks ago, arthritis with joint replacements and neck pain earlier in week with short course steroid use (3 days of small taper, not taken yesterday), who presented with lower abdominal pain beginning around noon yesterday, associated with nausea but no vomiting, feeling of constipation but was able to have 2 soft formed BMs, feeling cold, and episode of syncope with fall and left forehead contusion at home. Per daughter, about 15 minutes prior, she had normal temp taken at home. In ER, she had T 101.7, wbc 13, initial Na 128, lactate 2.3, and low Mg. She was given IV fluids, pain meds, Zosyn and initial CT scan showed recurrent hiatal hernia, diverticulosis without clear diverticulitis, distended gallbladder and bladder, small amount free fluid, no free air, no obstruction, cecum in middle/upper abdomen with likely long mesentery. Guerrero was inserted with 1000ml out. Her pain persisted, and lactate went up to 3, so CTA was repeated 4 hrs later, showing increase in free fluid, few foci of free air, some haziness around sigmoid and rectum suggesting possible source of perf in sigmoid colon. Surgery was asked to assess. She is seen and examined in ICU, with sister and daughter at bedside. She c/o lower abd pain coming back, bad when it comes, though it gets better after medication. She denies vomiting, subjective fever, diarrhea, dizziness or lightheadedness before fall. She had gotten up from bathroom to walk to kitchen , then found herself on the floor, having hit the ceramic counter on the way down. She believes the abx for the diverticulitis were Cipro and Flagyl for about 10 days, and she did feel better, was able to eat Thanksgiving dinner. Previous last episode was at least a few years prior. Last colonoscopy about [address] Alvares. 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 Cardio/Vascular: Yes: HTN, Hyperlipdemia, Mitral Insufficiency, Murmur, Other ( arrhythmias (MVP, BIGEMINY), h/o symptomatic bradycardia) Pulmonary: Yes: Sleep Apnea (not using CPAP) Gastrointestinal: Yes: Diverticulitis (tx from 04/12 to just after txgiving w/ abx (Cipro/Flagyl)), Diverticulosis, Hiatal Hernia (s/p repair 10 yrs ago - recurrent on CT) Reproductive: Yes: Postmenopausal Musculoskeletal: Yes: Other (neck pain recently (few days of low-dose prednisone 5-4-3)) Rheumatology: Yes: Fibromyalgia - Past Surgical History Past Surgical History: Yes: Colonoscopy (5 yrs ago lety Alvares), Hernia Repair (hiatal hernia repair laparoscopically 10 yrs ago [place]), Hysterectomy, Joint Replacement ((R. Knee, L. Ankle, L. Wrist, L. Knee)) - Alcohol/Substance Use Hx Alcohol Use: Yes (SOCIAL) History of Substance Use: reports: None - Smoking History Smoking history: Current every day smoker Have you smoked in the past 12 months: Yes Aproximately how many cigarettes per day: 0 (VAPES nicotine products daily) If you are a former smoker, when did you quit?: quit cigs 30 yrs ago - Social History Usual Living Arrangement: With Child ADL: Independent Occupation: retired History of Recent Travel: Yes ([place] in March) Home Medications - Allergies Allergies/Adverse Reactions: Allergies Allergy/AdvReac Type Severity Reaction Status Date / Time No Known Drug Allergies Allergy Unknown Verified 05/05/19 18:57 venom-honey bee Allergy Verified 05/05/19 18:57 [bee venom (honey bee)] veal Allergy Severe Difficulty Uncoded 05/06/19 07:26 Breathing SCALLOPS Allergy Unknown Hives Uncoded 05/05/19 18:57 - Home Medications Home Medications: Ambulatory Orders Duloxetine HCl [Cymbalta -] 60 mg PO BID 02/28/13 Atorvastatin Ca [Lipitor] 20 mg PO HS 03/19/13 Hydrochlorothiazide [Hctz -] 25 mg PO DAILY 09/22/13 Flecainide Acetate 100 mg PO DAILY 03/12/18 Cyanocobalamin (Vitamin B-12) [Cyanocobalamin Injection] 1,000 mcg IJ WEEKLY Losartan Potassium [Cozaar] 100 mg PO DAILY 05/05/19 Metaxalone [Skelaxin] 800 mg PO TID PRN 05/05/19 Methylprednisolone [Methylpred Dp] 4 mg PO ASDIR 05/05/19 Potassium Chloride [Klor-Con M20] 1 tab PO DAILY 05/05/19 Home Medications (free text): per pt, took steroids 5mg, 4mg, 3mg Wed-Wed-Wed, not Wednesday for neck;. last took HCTZ 2 days ago Family Medical History Family History: Unremarkable (noncontributory) Review of Systems - Review of Systems Constitutional: reports: Chills. denies: Fever Eyes: denies: Blurred Vision, Recent Change in Vision HENT: denies: Difficult Swallowing, Throat Pain Neck: denies: Swollen Glands, Tenderness Cardiovascular: denies: Chest Pain, Palpitations Respiratory: denies: Cough, SOB Gastrointestinal: reports: Abdominal Pain (with hpi), Constipation (but had 2 soft BMs yesterday), Nausea (with hpi). denies: Diarrhea, Vomiting Genitourinary: denies: Burning, Dysuria Musculoskeletal: denies: Back Pain, Joint Pain, Muscle Pain Integumentary: denies: Change in Color, Rash Neurological: reports: Syncope (with hpi). denies: Dizziness (denies before fall), Headache Psychiatric: denies: Anxiety, Depression Physical Exam Vital Signs: Vital Signs Temperature 97.7 F 05/06/19 05:30 Pulse Rate 82 05/06/19 05:30 Respiratory Rate 05/06/19 05:30 Blood Pressure 133/85 05/06/19 05:30 O2 Sat by Pulse Oximetry (%) 95 05/06/19 03:19 Constitutional: Yes: Well Nourished, Calm, Moderate Distress Eyes: Yes: Conjunctiva Clear, EOM Intact HENT: Yes: Normocephalic, Other (small bruise and lac (~1cm) over left eyebrow corner) Neck: Yes: Supple, Trachea Midline Cardiovascular: Yes: Regular Rate and Rhythm, Murmur Respiratory: Yes: Regular, CTA Bilaterally, On Nasal O2 Gastrointestinal: Yes: Soft, Hypoactive Bowel Sounds (present x4), Tenderness ( diffusely but more in lower quadrants and suprapubic), Tenderness, Epigastrium, Tenderness, Rebound. No: Distention ...Rectal Exam: Yes: Deferred Renal/: Yes: CVA Tenderness - Left, Guerrero Present. No: CVA Tenderness - Right , Hematuria Musculoskeletal: No: Joint Stiffness, Joint Swelling Extremities: No: Cool, Cyanosis Edema: No Peripheral Pulses WNL: Yes Integumentary: Yes: Tattoos. No: Jaundice, Rash Neurological: Yes: Alert, Oriented Psychiatric: Yes: Alert, Oriented Labs: CBC, BMP 05/06/19 05:15 05/06/19 05:05 CMP Sodium 135 mmol/L (136-145) L 05/06/19 07:00 Potassium 3.5 mmol/L (3.5-5.1) 05/06/19 07:00 Chloride 101 mmol/L (98-107) 05/06/19 07:00 Carbon Dioxide 25 mmol/L (21-32) 05/06/19 07:00 Anion Gap 8 MMOL/L (8-16) 05/06/19 07:00 BUN 8.1 mg/dL (7-18) 05/06/19 07:00 Creatinine 0.6 mg/dL (0.55-1.3) 05/06/19 07:00 Est GFR (CKD-EPI)AfAm 114.82 05/06/19 07:00 Est GFR (CKD-EPI)NonAf 99.07 05/06/19 07:00 Random Glucose 117 mg/dL (74-106) H 05/06/19 07:00 Lactic Acid 2.2 mmol/L (0.4-2.0) H* 05/06/19 03:10 Calcium 8.1 mg/dL (8.5-10.1) L 05/06/19 07:00 Phosphorus 2.8 mg/dL (2.5-4.9) 05/06/19 07:00 Magnesium 2.3 mg/dL (1.8-2.4) 05/06/19 07:00 Total Bilirubin 0.6 mg/dL (0.2-1) 05/06/19 07:00 AST 11 U/L (15-37) L 05/06/19 07:00 ALT 17 U/L (13-61) 05/06/19 07:00 Alkaline Phosphatase 60 U/L (45-117) 05/06/19 07:00 Creatine Kinase 74 U/L (26-192) 05/05/19 19:37 Troponin I < 0.02 ng/ml (0.00-0.05) 05/05/19 19:37 Total Protein 5.8 g/dl (6.4-8.2) L 05/06/19 07:00 Albumin 3.0 g/dl (3.4-5.0) L 05/06/19 07:00 TSH 1.41 uIU/ml (0.358-3.74) 05/05/19 19:37 CBC, BMP 05/06/19 05:15 05/06/19 07:00 wbc was 13.2 initially K from 3.8 lactic 2.3 - 3 - 2.2 Mg repleted from 1.6 INR, PTT INR 0.96 (0.83-1.09) 05/06/19 05:05 Urine Test Results Urine Color Yellow 05/05/19 21:00 Urine Appearance Cloudy 05/05/19 21:00 Urine pH 7.0 (5.0-8.0) 05/05/19 21:00 Ur Specific [place] 1.020 (1.010-1.035) 05/05/19 21:00 Urine Protein Negative (NEGATIVE) 05/05/19 21:00 Urine Glucose (UA) Trace (NEGATIVE) 05/05/19 21:00 Urine Ketones Negative (NEGATIVE) 05/05/19 21:00 Urine Blood Trace (NEGATIVE) 05/05/19 21:00 Urine Nitrite Negative (NEGATIVE) 05/05/19 21:00 Urine Bilirubin Negative (NEGATIVE) 05/05/19 21:00 Ur Leukocyte Esterase 2+ (NEGATIVE) H 05/05/19 21:00 Imaging - Results Cat Scan: Report Reviewed, Image Reviewed (images reviewed from both CTs, discussed with Dr. Good of radiology - some free fluid, little more on second , diverticulosis sigmoid, some haziness of rectosigmoid figueroa on second scan - possible source of possible few foci of free air, cecum in mid/upper abdomen ( likely long mesentery) with appendix noted without inflammation, gallbladder distended, bladder initially distended - with Guerrero on second scan, + hiatal hernia; no bowel obstruction, s/p hysterectomy) Ultrasound: Image Reviewed (gallbladder somewhat distended - ?sludge, I do not clearly appreciate stones) Problem List - Problems (1) Peritonitis (acute) generalized Assessment/Plan: likely perforated viscus, probably secondary to diverticulitis agree with NPO/IV fluid resuscitation IV antibiotics - consult ID Guerrero catheter in trend labs replete lytes prn DVT prophylaxis peritonitic on exam with more fluid on second CT surgical exploration indicated - pt understands almost certain need for colostomy Discussed with patient risks, benefits and alternatives of exploratory laparotomy, possible bowel resection possible ostomy, including but not limited to bleeding, infection, injury to adjacent structures, intestinal leak or injury , intraabdominal abscess, incisional hernia, need for further procedures, ; alternatives include antibiotics, delayed or no surgery - risks of this include failure of nonoperative therapy, sepsis, . Patient agreeable to proceed with operation - will take to OR emergently for above. Informed consent signed for same. Code(s): K65.0 - GENERALIZED (ACUTE) PERITONITIS (2) Lower abdominal pain Code(s): R10.30 - LOWER ABDOMINAL PAIN, UNSPECIFIED (3) Syncope Code(s): R55 - SYNCOPE AND COLLAPSE Qualifiers: Syncope type: unspecified Qualified Code(s): R55 - Syncope and collapse (4) Dehydration Code(s): E86.0 - DEHYDRATION (5) Fibromyalgia Code(s): M79.7 - FIBROMYALGIA (6) HTN (hypertension) Code(s): I10 - ESSENTIAL (PRIMARY) HYPERTENSION Qualifiers: Hypertension type: essential hypertension Qualified Code(s): I10 - Essential (primary) hypertension (7) Ventricular bigeminy Code(s): I49.9 - CARDIAC ARRHYTHMIA, UNSPECIFIED (8) Sleep apnea Code(s): G47.30 - SLEEP APNEA, UNSPECIFIED Qualifiers: Sleep apnea type: unspecified type Qualified Code(s): G47.30 - Sleep apnea , unspecified (9) Nicotine dependence Code(s): F17.200 - NICOTINE DEPENDENCE, UNSPECIFIED, UNCOMPLICATED Qualifiers: Nicotine product type: other Substance use status: uncomplicated Qualified Code(s): F17.290 - Nicotine dependence, other tobacco product, uncomplicated
[2019-05-06] MEDS: LACTATED RINGERS SOLUTION 1,000 ML/1,000 ML INFUS.BAG IV SCH ×2 (07:19→21:00)
[2019-05-06 07:20] LABS: BILIRUBIN,TOTAL 0.6 mg/dL (0.2-1); BLOOD UREA NITROGEN 8.1 mg/dL (7-18); CALCIUM 8.1 mg/dL (8.5-10.1); CREATININE 0.6 mg/dL (0.55-1.3); MAGNESIUM 2.3 mg/dL (1.8-2.4); PHOSPHOROUS 2.8 mg/dL (2.5-4.9); POTASSIUM 3.5 mmol/L (3.5-5.1); TOT PROT 5.8 g/dl (6.4-8.2)
[2019-05-06] MEDS ORDERED: SODIUM CHLORIDE 0.9%/KCL 20 MEQ/1,000 ML INFUS.BAG IV ONE (07:22)
[2019-05-06] MEDS ORDERED: LACTATED RINGERS SOLUTION 1,000 ML/1,000 ML INFUS.BAG IV ONE (07:24)
[2019-05-06 07:32] LABS: MAGNESIUM 2.2 mg/dL (1.8-2.4); PHOSPHOROUS 2.8 mg/dL (2.5-4.9)
[2019-05-06] MEDS ORDERED: SEVOFLURANE 250 ML BTL ONE (08:17)
[2019-05-06] MEDS ORDERED: PROPOFOL 20 ML ONE (08:21)
[2019-05-06] MEDS ORDERED: MIDAZOLAM HCL 2 MG/2 ML SINGLE DOSE VIAL ONE ×3 (08:21)
[2019-05-06] MEDS ORDERED: ROCURONIUM BROMIDE 50 MG/5 ML SYRINGE ONE ×2 (08:21→09:49)
[2019-05-06] MEDS ORDERED: fentaNYL CITRATE 250 MCG/5 ML VIAL ONE (08:21)
--- NOTE | 2019-05-06 08:22 | PN ---
Progress Note (short form) - Note Progress Note: ID consult dictated imp/reccd sepsis secondary to perforated viscus-?diverticulitis 58 yo female admitted from home after syncopal event yesterday- found on floor by grandson recent diverticulitis - went to [facility] and was prescribed antibiotics for 10 days - which she took with improvement of her symptoms yesterday she developed acute onset of nausea with LLQ abdominal pain, felt dizzy and passed out at home in ED she had fever and multiple scans- she had continued abdominal pain and repeat ct scan showed few foci for free air she has an elevated lactic acid and wbc is 2.9-anc 2.5- for emergent surgical exploration- continues to have severe abdominal pain started on zosyn in the ED she is alert and talking continues to have severe lower abdominal pain hemodynamically stable agree with zosyn for coverage for intra-abdominal pathogens no thrush, no history of MDRO, no recent hospitalizations close monitoring postop with repeat labs d/w Dr Coles d/w veneer marker over 40 minutes spent in the care of this critically ill ICU patient Problem List - Problems (1) Sepsis Code(s): A41.9 - SEPSIS, UNSPECIFIED ORGANISM (2) Peritonitis (acute) generalized Code(s): K65.0 - GENERALIZED (ACUTE) PERITONITIS (3) Perforated abdominal viscus Code(s): R19.8 - OTH SYMPTOMS AND SIGNS INVOLVING THE DGSTV SYS AND ABDOMEN
[2019-05-06] MEDS ORDERED: PIPERACILLIN/TAZOB 2.25 GM 2.25 GM in DEXTROSE 5%-WATER - 50 ML IVPB ONE (08:30)
--- NOTE | 2019-05-06 08:34 | CONSULT ---
Consult Consult Specialty:: PULM/CCM Referred by:: Dr. Porter Pereira Reason for Consultation:: Abd Sepsis - History of Present Illness Chief Complaint: ABD PAIN History of Present Illness: Ms. Bates is a 58 y/o woman w/ HTN, HL, Sleep Apnea (non-compliant w/ her CPAP ), Mitral Valve Insufficiency c/b murmur and paroxysmal cardiac dysrhythmias, fibromyalgia & diverticulosis c/b recurrent diverticulitis w/ recent diverticulitis flare last month treated w/ Abx ([facility]). A/p pt, yesterday, sudden fever, LLQ abd pain, N/V, dizzy & then found down by grandson. In ED: multiple imaging all negative for new aberration but repeat CTAP for rising LA and continued abd pain finally showed free air c/f viscous perf. Pt is admitted to the ICU O/N w/ Abd Sepsis. - History Source History Provided By: Patient, Medical Record Limitations to Obtaining History: No Limitations - Past Medical History METER TESTER POLYPHASE: Yes: Syncope Cardio/Vascular: Yes: HTN, Hyperlipdemia, Mitral Insufficiency, Murmur, Other ( arrhythmias (MVP, BIGEMINY), h/o symptomatic bradycardia) Pulmonary: Yes: Sleep Apnea (not using CPAP) Gastrointestinal: Yes: Diverticulitis (tx from 04/12 to just after txgiving w/ abx (Cipro/Flagyl)), Diverticulosis, Hiatal Hernia (s/p repair 10 yrs ago - recurrent on CT) Musculoskeletal: Yes: Other (neck pain recently (few days of low-dose prednisone 5-4-3)) Rheumatology: Yes: Fibromyalgia - Past Surgical History Past Surgical History: Yes: Colonoscopy (5 yrs ago [facility]), Hernia Repair (hiatal hernia repair laparoscopically 10 yrs ago [facility]), Hysterectomy, Joint Replacement ((R. Knee, L. Ankle, L. Wrist, L. Knee)) - Alcohol/Substance Use Hx Alcohol Use: Yes (SOCIAL) History of Substance Use: reports: None - Smoking History Smoking history: Current every day smoker Have you smoked in the past 12 months: Yes Aproximately how many cigarettes per day: 0 (VAPES nicotine products daily) If you are a former smoker, when did you quit?: quit cigs 30 yrs ago - Social History Usual Living Arrangement: With Child ADL: Independent Occupation: retired History of Recent Travel: Yes ([place] in March) Home Medications - Allergies Allergies/Adverse Reactions: Allergies Allergy/AdvReac Type Severity Reaction Status Date / Time No Known Drug Allergies Allergy Unknown Verified 05/05/19 18:57 venom-honey bee Allergy Verified 05/05/19 18:57 [bee venom (honey bee)] veal Allergy Severe Difficulty Uncoded 05/06/19 07:26 Breathing SCALLOPS Allergy Unknown Hives Uncoded 05/05/19 18:57 - Home Medications Home Medications: Ambulatory Orders Duloxetine HCl [Cymbalta -] 60 mg PO BID 02/28/13 Atorvastatin Ca [Lipitor] 20 mg PO HS 03/19/13 Hydrochlorothiazide [Hctz -] 25 mg PO DAILY 09/22/13 Flecainide Acetate 100 mg PO DAILY 03/12/18 Cyanocobalamin (Vitamin B-12) [Cyanocobalamin Injection] 1,000 mcg IJ WEEKLY Losartan Potassium [Cozaar] 100 mg PO DAILY 05/05/19 Metaxalone [Skelaxin] 800 mg PO TID PRN 05/05/19 Methylprednisolone [Methylpred Dp] 4 mg PO ASDIR 05/05/19 Potassium Chloride [Klor-Con M20] 1 tab PO DAILY 05/05/19 Family Medical History Family History: Unremarkable Review of Systems - Review of Systems Constitutional: reports: Malaise Eyes: reports: No Symptoms HENT: reports: No Symptoms Neck: reports: No Symptoms Cardiovascular: reports: No Symptoms Respiratory: reports: No Symptoms Gastrointestinal: reports: Abdominal Pain. denies: Melena Genitourinary: reports: No Symptoms Breasts: reports: No Symptoms Reported Musculoskeletal: reports: No Symptoms Integumentary: reports: No Symptoms Neurological: reports: Dizziness Endocrine: reports: No Symptoms Hematology/Lymphatic: reports: No Symptoms Psychiatric: reports: No Symptoms Pain Intensity: 8 Physical Exam Vital Signs: Vital Signs Temperature 97.7 F 05/06/19 05:30 Pulse Rate 83 05/06/19 06:00 Respiratory Rate 05/06/19 06:00 Blood Pressure 121/73 05/06/19 06:00 O2 Sat by Pulse Oximetry (%) 95 05/06/19 03:19 Intake & Output 05/03/19 05/04/19 05/05/19 05/06/19 23:59 23:59 23:59 23:59 Intake Total 1211 Output Total 1475 Balance -264 Weight 79.379 kg 81.193 kg Constitutional: Yes: Well Nourished, No Distress, Calm Eyes: Yes: WNL, Conjunctiva Clear, EOM Intact HENT: Yes: WNL, Atraumatic, Normocephalic Neck: Yes: WNL, Supple, Trachea Midline Cardiovascular: Yes: WNL, Regular Rate and Rhythm, Murmur Respiratory: Yes: WNL, Regular, CTA Bilaterally Gastrointestinal: Yes: Abdomen, Obese, Hypoactive Bowel Sounds, Tenderness, Tenderness, Rebound ...Rectal Exam: Yes: Deferred Renal/: Yes: WNL Breast(s): Yes: WNL Musculoskeletal: Yes: WNL Extremities: Yes: WNL Edema: Yes Edema: LLE: Trace, RLE: Trace Peripheral Pulses WNL: Yes Integumentary: Yes: Tattoos Neurological: Yes: WNL, Alert, Oriented ...Motor Strength: WNL Psychiatric: Yes: WNL Labs: CBC, BMP 05/06/19 05:15 05/06/19 07:00 INR, PTT INR 0.96 (0.83-1.09) 05/06/19 05:05 Laboratory Results - last 24 hr 05/05/19 05/05/19 05/05/19 19:37 19:37 19:37 WBC 13.2 H RBC 4.40 Hgb 13.2 Hct 39.2 MCV 89.2 MCH 30.1 MCHC 33.7 RDW 13.8 Plt Count 420 D MPV 7.0 L Absolute Neuts (auto) 11.5 H Neutrophils % 86.7 H D Lymphocytes % 7.3 L D Monocytes % 5.4 Eosinophils % 0.0 D Basophils % 0.6 Nucleated RBC % 0 PT with INR INR Sodium 128 L Potassium 3.8 Chloride 93 L Carbon Dioxide 27 Anion Gap 9 BUN 11.5 Creatinine 0.7 Est GFR (CKD-EPI)AfAm 109.15 Est GFR (CKD-EPI)NonAf 94.17 Random Glucose 124 H Lactic Acid Calcium 9.5 Phosphorus Magnesium 1.6 L Total Bilirubin 0.7 AST 16 ALT 19 Alkaline Phosphatase 76 Creatine Kinase 74 Troponin I < 0.02 Total Protein 6.9 Albumin 3.8 TSH 1.41 Urine Color Urine Appearance Urine pH Ur Specific Midway Urine Protein Urine Glucose (UA) Urine Ketones Urine Blood Urine Nitrite Urine Bilirubin Urine Urobilinogen Ur Leukocyte Esterase Urine WBC (Auto) Urine RBC (Auto) Urine Casts (Auto) U Epithel Cells (Auto) Urine Bacteria (Auto) Blood Type Antibody Screen 05/05/19 05/05/19 05/06/19 20:01 21:00 00:30 WBC RBC Hgb Hct MCV MCH MCHC RDW Plt Count MPV Absolute Neuts (auto) Neutrophils % Lymphocytes % Monocytes % Eosinophils % Basophils % Nucleated RBC % PT with INR INR Sodium Potassium Chloride Carbon Dioxide Anion Gap BUN Creatinine Est GFR (CKD-EPI)AfAm Est GFR (CKD-EPI)NonAf Random Glucose Lactic Acid 2.3 H* 3.0 H* Calcium Phosphorus Magnesium Total Bilirubin AST ALT Alkaline Phosphatase Creatine Kinase Troponin I Total Protein Albumin TSH Urine Color Yellow Urine Appearance Cloudy Urine pH 7.0 Ur Specific [place]way 1.020 Urine Protein Negative Urine Glucose (UA) Trace Urine Ketones Negative Urine Blood Trace Urine Nitrite Negative Urine Bilirubin Negative Urine Urobilinogen 1.0 Ur Leukocyte Esterase 2+ H Urine WBC (Auto) 16 Urine RBC (Auto) 41.9 Urine Casts (Auto) 1 U Epithel Cells (Auto) 3.1 Urine Bacteria (Auto) 127.2 Blood Type Antibody Screen 05/06/19 05/06/19 05/06/19 03:10 05:05 05:05 WBC RBC Hgb Hct MCV MCH MCHC RDW Plt Count MPV Absolute Neuts (auto) Neutrophils % Lymphocytes % Monocytes % Eosinophils % Basophils % Nucleated RBC % PT with INR INR Sodium Cancelled Potassium Cancelled Chloride Cancelled Carbon Dioxide Cancelled Anion Gap Cancelled BUN Cancelled Creatinine Cancelled Est GFR (CKD-EPI)AfAm Cancelled Est GFR (CKD-EPI)NonAf Cancelled Random Glucose Cancelled Lactic Acid 2.2 H* Calcium Cancelled Phosphorus Magnesium Total Bilirubin AST ALT Alkaline Phosphatase Creatine Kinase Troponin I Total Protein Albumin TSH Urine Color Urine Appearance Urine pH Ur Specific [place]way Urine Protein Urine Glucose (UA) Urine Ketones Urine Blood Urine Nitrite Urine Bilirubin Urine Urobilinogen Ur Leukocyte Esterase Urine WBC (Auto) Urine RBC (Auto) Urine Casts (Auto) U Epithel Cells (Auto) Urine Bacteria (Auto) Blood Type O POSITIVE Antibody Screen Negative 12/14/19 12/14/19 12/14/19 05:05 05:15 07:00 WBC 2.9 L RBC 4.07 Hgb 12.3 Hct 36.1 MCV 88.8 MCH 30.2 MCHC 34.0 RDW 14.2 Plt Count 362 MPV 7.1 L Absolute Neuts (auto) 2.5 Neutrophils % 83.6 H Lymphocytes % 11.8 D Monocytes % 4.3 Eosinophils % 0.1 D Basophils % 0.2 Nucleated RBC % 0 PT with INR 11.30 INR 0.96 Sodium 134 L Potassium 3.5 Chloride 102 Carbon Dioxide 24 Anion Gap 8 BUN 8.4 Creatinine 0.6 Est GFR (CKD-EPI)AfAm 114.82 Est GFR (CKD-EPI)NonAf 99.07 Random Glucose 118 H Lactic Acid Calcium 8.2 L Phosphorus 2.8 Magnesium 2.2 Total Bilirubin 0.6 AST 12 L ALT 16 Alkaline Phosphatase 59 Creatine Kinase Troponin I Total Protein 5.8 L Albumin 3.1 L TSH Urine Color Urine Appearance Urine pH Ur Specific Midway Urine Protein Urine Glucose (UA) Urine Ketones Urine Blood Urine Nitrite Urine Bilirubin Urine Urobilinogen Ur Leukocyte Esterase Urine WBC (Auto) Urine RBC (Auto) Urine Casts (Auto) U Epithel Cells (Auto) Urine Bacteria (Auto) Blood Type Antibody Screen 05/06/19 07:00 WBC RBC Hgb Hct MCV MCH MCHC RDW Plt Count MPV Absolute Neuts (auto) Neutrophils % Lymphocytes % Monocytes % Eosinophils % Basophils % Nucleated RBC % PT with INR INR Sodium 135 L Potassium 3.5 Chloride 101 Carbon Dioxide 25 Anion Gap 8 BUN 8.1 Creatinine 0.6 Est GFR (CKD-EPI)AfAm 114.82 Est GFR (CKD-EPI)NonAf 99.07 Random Glucose 117 H Lactic Acid Calcium 8.1 L Phosphorus 2.8 Magnesium 2.3 Total Bilirubin 0.6 AST 11 L ALT 17 Alkaline Phosphatase 60 Creatine Kinase Troponin I Total Protein 5.8 L Albumin 3.0 L TSH Urine Color Urine Appearance Urine pH Ur Specific [place]way Urine Protein Urine Glucose (UA) Urine Ketones Urine Blood Urine Nitrite Urine Bilirubin Urine Urobilinogen Ur Leukocyte Esterase Urine WBC (Auto) Urine RBC (Auto) Urine Casts (Auto) U Epithel Cells (Auto) Urine Bacteria (Auto) Blood Type Antibody Screen Imaging - Results Chest X-ray: Other (NONE) Cat Scan: Report Reviewed (CTAP 05/06: A small amount of nonspecific free fluid is seen within the upper abdomen bilaterally and lower pelvis. No definite CT evidence of solid organ injury. There is mild urinary bladder overdistention which could be physiologic in nature versus mild/ early retention. Correlate clinically. Mild to moderate gallbladder overdistention is seen. The common bile duct appears slightly prominent measuring 0.8 cm in diameter. MRI/MRCP evaluation is suggested, nonemergent unless otherwise clinically indicated. Moderate hiatal hernia. Colonic diverticulosis.) EKG: Image Reviewed (ABNORMAL EKGRSR @ 76 w/o ectopy, I do appreciate some T-wave flattening in II, III, aVF, V1, & V6, in addition the pt is qu'ed out in V2 c/f anterior wall infarction (But unknown age), QTc = 477ms (My Read). ) Problem List - Problems (1) Abdominal pain Code(s): R10.9 - UNSPECIFIED ABDOMINAL PAIN Qualifiers: Abdominal location: generalized Qualified Code(s): R10.84 - Generalized abdominal pain (2) Diverticulosis Code(s): K57.90 - DVRTCLOS OF INTEST, PART UNSP, W/O PERF OR ABSCESS W/O BLEED (3) Elevated lactic acid level Code(s): R79.89 - OTHER SPECIFIED ABNORMAL FINDINGS OF BLOOD CHEMISTRY (4) Lower abdominal pain Code(s): R10.30 - LOWER ABDOMINAL PAIN, UNSPECIFIED (5) Nicotine dependence Code(s): F17.200 - NICOTINE DEPENDENCE, UNSPECIFIED, UNCOMPLICATED Qualifiers: Nicotine product type: other Substance use status: uncomplicated Qualified Code(s): F17.290 - Nicotine dependence, other tobacco product, uncomplicated (6) Perforated abdominal viscus Code(s): R19.8 - OTH SYMPTOMS AND SIGNS INVOLVING THE DGSTV SYS AND ABDOMEN (7) Peritonitis (acute) generalized Code(s): K65.0 - GENERALIZED (ACUTE) PERITONITIS (8) Sepsis Code(s): A41.9 - SEPSIS, UNSPECIFIED ORGANISM (9) Dehydration Code(s): E86.0 - DEHYDRATION (10) Fibromyalgia Code(s): M79.7 - FIBROMYALGIA (11) Lightheadedness Code(s): R42 - DIZZINESS AND GIDDINESS Assessment/Plan ASSESS: -Abd Sepsis 2/2 viscous perf -Sleep Apnea (non-compliant) -HTN -HL -Mitral Valve Insufficiency -Fibromyalgia PLAN: -NPO -Supp FiO prn for SpO2 > 92% -Nebs prn -Nocturnal CPAP -Hold all anti-HTN meds -Hold Hyperlipdemia meds until out of ICU -Maintain Large Bore IV access -Aggressive Pre-Op IVF resuscitation -Active T & S -Pain Control -Surgical Consult for STAT Ex-Lap -Post-Op ICU resuscitation -DVT ppx -GI ppx [facility]- [facility] [id number] Medical Decision Making - Critical Care Time Total Critical Care Time (minutes): 38 Critical Care Statement: The care of this patient involved high complexity decision making to prevent further life threatening deterioration of the patient 's condition and/or to evaluate & treat vital organ system(s) failure or risk of failure.
[2019-05-06] MEDS ORDERED: PIPERACILLIN/TAZOB 4.5 GM 4.5 GM in DEXTROSE 5%-WATER 100 ML IVPB SCH (09:00)
--- NOTE | 2019-05-06 09:12 | PN ---
Progress Note, Physician History of Present Illness: 58 yo female admitted from home after syncopal event yesterday- found on floor by curt recent diverticulitis - went to [facility] and was prescribed antibiotics for 10 days - which she took with improvement of her symptoms yesterday she developed acute onset of nausea with LLQ abdominal pain, felt dizzy and passed out at home - Current Medication List Current Medications: Active Medications Lactated Ringer's (Lactated Ringers Solution) 1,000 ml in 1,000 mls @ 150 mls/ hr IV ASDIR YUE Last Admin: 05/06/19 07:19 Dose: 150 mls/hr Piperacillin Sod/Tazobactam (Sod 4.5 gm/ Dextrose) 100 mls @ 200 mls/hr IVPB Q6H-IV YUE; Protocol Last Admin: 05/06/19 08:41 Dose: Not Given - Objective Vital Signs: Vital Signs Temperature 102.4 F H 05/06/19 08:46 Pulse Rate 86 05/06/19 08:37 Respiratory Rate 20 05/06/19 08:37 Blood Pressure 126/72 05/06/19 08:37 O2 Sat by Pulse Oximetry (%) 95 05/06/19 08:30 Cardiovascular: Yes: S1, S2 Respiratory: Yes: Regular, CTA Bilaterally Gastrointestinal: Yes: Soft, Hypoactive Bowel Sounds, Tenderness Edema: No Labs: CBC, BMP 05/06/19 05:15 05/06/19 07:00 INR, PTT INR 0.96 (0.83-1.09) 05/06/19 05:05 Problem List - Problems (1) Abdominal pain Assessment/Plan: ID AND SURGICAL CONSULTS APPRECIATED PT TO THE OR FOR EXPLORATORY LAP IV ABX IV FLUIDS ICU CARE FOLLOW LABS Code(s): R10.9 - UNSPECIFIED ABDOMINAL PAIN Qualifiers: Abdominal location: generalized Qualified Code(s): R10.84 - Generalized abdominal pain (2) Peritonitis (acute) generalized Assessment/Plan: ABOVE Code(s): K65.0 - GENERALIZED (ACUTE) PERITONITIS (3) Sepsis Assessment/Plan: IV ABX ID ON BOARD Laboratory Tests 05/05/19 05/06/19 19:37 05:15 WBC 13.2 H 2.9 L Plt Count 420 D 362 Code(s): A41.9 - SEPSIS, UNSPECIFIED ORGANISM (4) Urinary retention Assessment/Plan: CUMMINS Code(s): R33.9 - RETENTION OF URINE, UNSPECIFIED (5) Syncope Assessment/Plan: CT HEAD NO BLEED OR CVA FOLLOW LABS CARDIO Code(s): R55 - SYNCOPE AND COLLAPSE Qualifiers: Syncope type: unspecified Qualified Code(s): R55 - Syncope and collapse
[2019-05-06] MEDS ORDERED: PIPERACILLIN/TAZOBACTAM 2.25 GM VIAL IVPB ONE ×2 (09:15→09:20)
[2019-05-06] MEDS ORDERED: PHENYLEPHRINE HCL 10 MG/1 ML SINGLE DOSE VIAL ONE (09:16)
[2019-05-06] MEDS ORDERED: DEXAMETHASONE SOD PHOSPHATE 4 MG/1 ML VIAL ONE (09:30)
[2019-05-06] MEDS ORDERED: ONDANSETRON 4 MG/2 ML VIAL ONE ×2 (09:30→10:54)
[2019-05-06] MEDS ORDERED: ACETAMINOPHEN 325 MG TABLET (FP) ONE (09:34)
--- NOTE | 2019-05-06 09:38 | CONS ---
DATE OF CONSULTATION: DATE OF DICTATION: 05/06/2019 INFECTIOUS DISEASE CONSULTATION REQUESTING PHYSICIAN: Matheus Coles M.D. HISTORY OF PRESENT ILLNESS: This is a 58-year-old woman with a recent episode of diverticulitis. She was seen at [facility], where she reports having had a CAT scan of her abdomen and pelvis. This was around Thanksgiving time. She finished the course of antibiotics, and was eating well and feeling well. Yesterday afternoon she developed the acute onset of severe left lower quadrant pain with nausea, lightheadedness and dizziness. She had a syncopal episode at home with a fall, and she hit her left forehead. She was found by her grandson. She awoke. EMS was called, and she was brought to the ER. She had fever to 101.7 in the ER. She denies any cough or shortness of breath. Overnight she has continued to have severe abdominal pain. She had 2 CAT scans, the 2nd of which showed some free air, and she is scheduled for the OR this morning. She is awake and alert. She is answering questions. She reports as well she had recent neck pain and was started on a Medrol pack with a taper on Wednesday. She is oriented. The plan is for surgery at this point. She is in the ICU at this time with her sister at the bedside. She continues to have severe lower abdominal pain. She has not had any diarrhea and she has not had any vomiting. PAST MEDICAL HISTORY: Notable for syncope, hypertension, hyperlipidemia, mitral insufficiency. She has had mitral valve prolapse in the past. She has a history of sleep apnea and diverticulitis. Prior to this episode, the last episode was 10 years ago. She has known hiatal hernia repair 10 years ago. She has been on a recent Medrol Dosepak, and she has a history of fibromyalgia. PAST SURGICAL HISTORY: Notable for hernia repair, hysterectomy. She has had right knee left wrist, and left knee surgery. HABITS: She drinks alcohol socially. She vapes. She does not smoke cigarettes. SOCIAL HISTORY: She is retired. She lives with her child. She was recently in [place] and returned in early March. ALLERGIES: BEE VENOM, VEAL, SCALLOPS. MEDICATIONS: Her medications at home include Cozaar, Skelaxin, potassium. She is on a Medrol Dosepak, flecainide, hydrochlorothiazide, Cymbalta, vitamin B12, and Lipitor. REVIEW OF SYSTEMS: As per HPI. She has no cough. She has no chest pain. PHYSICAL EXAMINATION: Vital Signs: Her current temperature is 97.7. Tmax was 101.7. Pulse is 83, blood pressure 121/73, respiratory rate 19. She weighs 81 kg. HEENT: She is normocephalic. Eyes are anicteric. Neck: Supple. Lungs: Clear to auscultation. Heart: Regular rate and rhythm. Abdomen: Soft. She has bowel sounds. She has diffuse abdominal discomfort to palpation, and she has mild rebound. Extremities: Without edema. Her extremities are warm. Skin: She has no rash. DIAGNOSTIC STUDIES: Her white count on admission was 13.2; repeat is 2.9. ANC 2.5, hemoglobin 12.3, platelets 362. INR 0.9. BUN 8, creatinine 0.6. LFTs are normal. Her lactic acid peaked at 3; repeat was 2.2. Urinalysis has 2+ leukocytes with 16 white cells. Blood cultures are pending. Imaging is as previously stated. She had CAT scans of her head, facial bones and cervical spine, all of which were negative for any acute process. Abdominal imaging is as previously stated. Liver function tests are normal. SUMMARY: This is a 58-year-old woman admitted from home with sepsis secondary to perforated viscus, most likely diverticulitis in this setting. She has no history of recent admissions, no history of multidrug resistance. She has no thrush, no recent hospitalizations. I would agree with [facility] for coverage. Suggest close monitoring postop with repeat labs. Her pharmacy is closed. Will call again to verify her medications. The case was discussed at length with the surgeon. Over 40 minutes were spent in the care of this critically ill ICU patient. HARMONY MCMAHON M.D. [id number]
--- NOTE | 2019-05-06 10:16 | EKG ---
Test Reason : Blood Pressure : / mmHG Vent. Rate : 075 BPM Atrial Rate : 075 BPM P-R Int : 158 ms QRS Dur : 106 ms QT Int : 428 ms P-R-T Axes : 041 014 029 degrees QTc Int : 477 ms NORMAL SINUS RHYTHM CANNOT RULE OUT ANTERIOR INFARCT , AGE UNDETERMINED ABNORMAL ECG WHEN COMPARED WITH ECG OF 19-MAR-2015 13:23, PREMATURE VENTRICULAR COMPLEXES ARE NO LONGER PRESENT PREMATURE ATRIAL COMPLEXES ARE NO LONGER PRESENT NONSPECIFIC T WAVE ABNORMALITY HAS REPLACED INVERTED T WAVES IN INFERIOR LEADS Confirmed by ARCHIE VALENZUELA MD ([id number]) on 05/06/2019 10:15:47 AM Referred By: Confirmed By:ARCHIE VALENZUELA MD
[2019-05-06] MEDS ORDERED: NEOSTIGMINE METHYLSULFATE 0.5 MG/1 ML - 10 ML MDV ONE (10:44)
[2019-05-06] MEDS ORDERED: GLYCOPYRROLATE 0.2 MG/1 ML VIAL ONE (10:44)
[2019-05-06] MEDS ORDERED: LIDOCAINE HCL/PF 2% SDV 5ML VIAL ONE (10:48)
[2019-05-06] MEDS ORDERED: ONDANSETRON 4 MG/2 ML VIAL IVPUSH PRN (11:25)
--- NOTE | 2019-05-06 11:46 | CON.CARD ---
Consult Consult Specialty:: Cadiology Referred by:: Randall Reason for Consultation:: syncope - History of Present Illness Chief Complaint: abdominal pain History of Present Illness: The patient is a 58-year-old femalewith hypertension, fibromyalgia, diverticulitis, admitted with nausea and vomiting and abdominal pain.Found to have bowel perforation. Currently status post partial colectomy. The patient is intubated in the ICU. Hemodynamically stable.In sinus rhythm. Occasional ectopy. 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 Cardio/Vascular: Yes: HTN, Hyperlipdemia, Mitral Insufficiency, Murmur, Other ( arrhythmias (MVP, BIGEMINY), h/o symptomatic bradycardia) Pulmonary: Yes: Sleep Apnea (not using CPAP) Gastrointestinal: Yes: Diverticulitis (tx from 04/12 to just after txgiving w/ abx (Cipro/Flagyl)), Diverticulosis, Hiatal Hernia (s/p repair 10 yrs ago - recurrent on CT) Musculoskeletal: Yes: Other (neck pain recently (few days of low-dose prednisone 5-4-3)) Rheumatology: Yes: Fibromyalgia - Past Surgical History Past Surgical History: Yes: Colonoscopy (5 yrs ago lety Alvares), Hernia Repair (hiatal hernia repair laparoscopically [address] [facility]), Hysterectomy, Joint Replacement ((R. Knee, L. Ankle, L. Wrist, L. Knee)) - Alcohol/Substance Use Hx Alcohol Use: Yes (SOCIAL) History of Substance Use: reports: None - Smoking History Smoking history: Current every day smoker Have you smoked in the past 12 months: Yes Aproximately how many cigarettes per day: 0 (VAPES nicotine products daily) If you are a former smoker, when did you quit?: quit cigs 30 yrs ago - Social History Usual Living Arrangement: With Child ADL: Independent Occupation: retired History of Recent Travel: Yes ([place] in March) Home Medications - Allergies Allergies/Adverse Reactions: Allergies Allergy/AdvReac Type Severity Reaction Status Date / Time No Known Drug Allergies Allergy Unknown Verified 05/05/19 18:57 venom-honey bee Allergy Verified 05/05/19 18:57 [bee venom (honey bee)] veal Allergy Severe Difficulty Uncoded 05/06/19 07:26 Breathing SCALLOPS Allergy Unknown Hives Uncoded 05/05/19 18:57 - Home Medications Home Medications: Ambulatory Orders Duloxetine HCl [Cymbalta -] 60 mg PO BID 02/28/13 Atorvastatin Ca [Lipitor] 20 mg PO HS 03/19/13 Hydrochlorothiazide [Hctz -] 25 mg PO DAILY 09/22/13 Flecainide Acetate 100 mg PO DAILY 03/12/18 Cyanocobalamin (Vitamin B-12) [Cyanocobalamin Injection] 1,000 mcg IJ WEEKLY Losartan Potassium [Cozaar] 100 mg PO DAILY 05/05/19 Metaxalone [Skelaxin] 800 mg PO TID PRN 05/05/19 Methylprednisolone [Methylpred Dp] 4 mg PO ASDIR 05/05/19 Potassium Chloride [Klor-Con M20] 1 tab PO DAILY 05/05/19 Review of Systems Unable to obtain ROS, reason: Intubated and sedated. Vital Signs: Vital Signs Temperature 98 F 05/06/19 11:15 Pulse Rate 84 05/06/19 11:15 Respiratory Rate 19 05/06/19 11:15 Blood Pressure 130/75 05/06/19 11:15 O2 Sat by Pulse Oximetry (%) 100 05/06/19 11:15 Constitutional: Yes: Obese, Other (intubated and sedated) Eyes: Yes: Conjunctiva Clear HENT: Yes: Atraumatic, Normocephalic Neck: Yes: Other (intubated) Respiratory: Yes: CTA Bilaterally, Mechanically Ventilated Gastrointestinal: Yes: Hypoactive Bowel Sounds Renal/: Yes: WNL Cardiovascular: Yes: WNL, Regular Rate and Rhythm JVD: No Carotid Bruit: No PMI: Non-Displaced Heart Sounds: Yes: S1, S2 Murmur: Yes: Systolic Murmur, Grade 2 Musculoskeletal: Yes: WNL Extremities: Yes: WNL Edema: No Peripheral Pulses: 2+ Left Carotid, 2+ Right Carotid, 2+ Left Femoral, 2+ Right Femoral, 2+ Left Popliteal, 2+ Right Popliteal, 2+ Left Doralis Pedis, 2+ Right Dorsalis Pedis Neurological: Yes: Other (sedated) - Other Data Labs, Other Data: CBC, BMP 05/06/19 05:15 05/06/19 07:00 INR, PTT INR 0.96 (0.83-1.09) 05/06/19 05:05 Troponin, BNP 05/05/19 19:37 Troponin I < 0.02 Troponin, BNP 05/05/19 19:37 Troponin I < 0.02 Assessment/Plan The patient is a 58-year-old femalewith hypertension, hyperlipidemia, fibromyalgia,diverticulitis, admitted with nausea and vomiting and abdominal pain.Found to have bowel perforation. Currently status post partial colectomy. The patient is intubated in the ICU. Hemodynamically stable.In sinus rhythm. Occasional ectopy. the patient is in the ICU recoveringfrom bowel resection. She is stable from the cardiac standpoint.Maintaining sinus rhythm.Hemodynamically stable. No acute ECG changes. There is no need for further cardiac workup at this point. Continue present care. please achieve good pain control when the patient wakes up. Try to keep hemoglobin above 10.0 as possible. please do not hesitate to call us PRN Cardiac stable.
--- NOTE | 2019-05-06 12:04 | OP ---
Operative Note - Note: Operative Date: 05/06/19 Pre-Operative Diagnosis: peritonitis, perforated viscus Operation: Lisha's procedure (partial sigmoid colectomy with end sigmoid colostomy), washout of peritonitis Findings: cloudy yellow peritoneal fluid on entry - cultured; distal sigmoid colon with diverticuli, inflammatory changes, site of perforation without pelon stool contamination - resected from normal rectum back to more proximal sigmoid for end colostomy; rectal stump tagged w/Prolene; + multiple stool balls palpable in colon, rectosigmoid; abdomen/pelvis irrigated with 5L saline, ELEANOR drain RLQ left in pelvis; colostomy matured LLQ - 57mm appliance placed; lower midline incision closed loosely and packed with betadine Kerlix Post-Operative Diagnosis: Other (sigmoid perforation, peritonitis) Surgeon: Matheus Coles Forest Officer: Carlos Shah Anesthesiologist/CONCRETE TRUCK DRIVER: Bob Song Anesthesia: General Specimens Removed: portion of sigmoid colon, stitch patino proximal, to pathology ;. staple line from colostomy sent with specimen;. peritoneal fluid on culture swab to micro Estimated Blood Loss (mls): 30 Drains & Tubes with Location: existing Guerrero left in place; 10Fr ELEANOR drain in pelvis, out right lower quadrant to bulb suction Drains, Volume Out (mls): 150 (UOP) Fluid Volume Replaced (mls): 1,600 (crystalloid) Operative Report Dictated: Yes
[2019-05-06] MEDS: ACETAMINOPHEN 1000 MG/100 ML VIAL (NON FORMULARY) IVPB SCH ×2 (12:13→18:21)
[2019-05-06] MEDS: HYDROmorphone *PCA* 10MG/50ML DISP.SYRIN PCA SCH (12:38)
[2019-05-06 13:30] LABS: BASO % 0.1 % (0-2.0); HEMATOCRIT 34.4 % (32.4-45.2); HEMOGLOBIN 11.7 GM/dL (10.7-15.3); LYMPH % 7.3 % (8-40); MCH 30.7 pg (25.7-33.7); MCHC 34.1 g/dl (32.0-36.0); MEAN CELL VOLUME 90.1 fl (80-96); MEAN PLT VOLUME 7.1 fl (7.5-11.1); MONO % 3.1 % (3.8-10.2); NEUT % 89.5 % (42.8-82.8); PLATELET COUNT 324 K/MM3 (134-434); RBC 3.81 M/mm3 (3.60-5.2); RDW 14.1 % (11.6-15.6); WHITE BLOOD COUNT 4.8 K/mm3 (4.0-10.0)
[2019-05-06 13:49] LABS: BLOOD UREA NITROGEN 5.6 mg/dL (7-18); CALCIUM 7.9 mg/dL (8.5-10.1); CREATININE 0.5 mg/dL (0.55-1.3); PHOSPHOROUS 3.4 mg/dL (2.5-4.9); POTASSIUM 3.7 mmol/L (3.5-5.1)
[2019-05-06 14:59] LABS: PLATELET ESTIMATE ADEQUATE
[2019-05-06] MEDS ORDERED: PIPERACILLIN/TAZOBACTAM 4.5 GM VIAL IVPB ONE ×2 (15:16→19:56)
[2019-05-06] MEDS ORDERED: DEXTROSE 5%-WATER 100 ML IVPB ONE ×2 (15:16→19:56)
[2019-05-06] MEDS: PIPERACILLIN/TAZOB 4.5 GM 4.5 GM in DEXTROSE 5%-WATER 100 ML IVPB SCH ×2 (15:19→20:03)
[2019-05-06] MEDS ORDERED: LACTATED RINGERS SOLUTION 1,000 ML/1,000 ML INFUS.BAG IV STA (21:21)
[2019-05-06] MEDS: MUPIROCIN 2% TOPICAL OINTMENT FOR DECOLONIZATION NS SCH (21:48)
[2019-05-06] MEDS: CHLORHEXIDINE GLUCONATE 4% CLEANSER FOR DECOLONIZATION TP SCH (21:49)
[2019-05-07] MEDS: LACTATED RINGERS SOLUTION 1,000 ML/1,000 ML INFUS.BAG IV SCH ×2 (01:00→06:38)
[2019-05-07] MEDS: ACETAMINOPHEN 1000 MG/100 ML VIAL (NON FORMULARY) IVPB SCH ×4 (02:16→17:42)
[2019-05-07] MEDS: PIPERACILLIN/TAZOB 4.5 GM 4.5 GM in DEXTROSE 5%-WATER 100 ML IVPB SCH ×3 (03:12→17:40)
[2019-05-07 06:33] LABS: HEMATOCRIT 30.2 % (32.4-45.2); HEMOGLOBIN 10.3 GM/dL (10.7-15.3); MCH 30.8 pg (25.7-33.7); MCHC 34.3 g/dl (32.0-36.0); MEAN CELL VOLUME 89.8 fl (80-96); MEAN PLT VOLUME 7.1 fl (7.5-11.1); PLATELET COUNT 265 K/MM3 (134-434); RBC 3.36 M/mm3 (3.60-5.2); RDW 14.4 % (11.6-15.6); WHITE BLOOD COUNT 6.7 K/mm3 (4.0-10.0)
[2019-05-07 06:51] LABS: BLOOD UREA NITROGEN 8.4 mg/dL (7-18); CALCIUM 8.2 mg/dL (8.5-10.1); CREATININE 0.5 mg/dL (0.55-1.3); PHOSPHOROUS 2.8 mg/dL (2.5-4.9); POTASSIUM 3.5 mmol/L (3.5-5.1)
--- NOTE | 2019-05-07 08:08 | CON.GI ---
Consult Consult Specialty:: GI Referred by:: Dr Porter Pereira Reason for Consultation:: perforated diverticulitis - History of Present Illness Chief Complaint: 58 y.o. F, known to me in the past for office-based treatment of diverticulitis in 2017, admitted with sudden onset lower abdominal pain, found to have perforated diverticulitis. Had sigmoid resection with diverting colostomy and Lisha procedure yesterday with Dr. Coles. - History Source History Provided By: Patient, Medical Record Limitations to Obtaining History: No Limitations - Past Medical History SKATESMAN: Yes: Syncope Cardio/Vascular: Yes: HTN, Hyperlipdemia, Mitral Insufficiency, Murmur, Other ( arrhythmias (MVP, BIGEMINY), h/o symptomatic bradycardia) Pulmonary: Yes: Sleep Apnea (not using CPAP) Gastrointestinal: Yes: Diverticulitis (tx from 04/12 to just after txgiving w/ abx (Cipro/Flagyl)), Diverticulosis, Hiatal Hernia (s/p repair 10 yrs ago - recurrent on CT) Musculoskeletal: Yes: Other (neck pain recently (few days of low-dose prednisone 5-4-3)) Rheumatology: Yes: Fibromyalgia - Past Surgical History Past Surgical History: Yes: Colonoscopy (5 yrs ago lety Alvares), Hernia Repair (hiatal hernia repair laparoscopically 10 yrs ago [facility]), Hysterectomy, Joint Replacement ((R. Knee, L. Ankle, L. Wrist, L. Knee)) - Alcohol/Substance Use Hx Alcohol Use: Yes (SOCIAL) History of Substance Use: reports: None - Smoking History Smoking history: Current every day smoker Have you smoked in the past 12 months: Yes Aproximately how many cigarettes per day: 0 (VAPES nicotine products daily) If you are a former smoker, when did you quit?: quit cigs 30 yrs ago - Social History Usual Living Arrangement: With Child ADL: Independent Occupation: retired History of Recent Travel: Yes ([place] in March) Home Medications - Allergies Allergies/Adverse Reactions: Allergies Allergy/AdvReac Type Severity Reaction Status Date / Time No Known Drug Allergies Allergy Unknown Verified 05/05/19 18:57 venom-honey bee Allergy Verified 05/05/19 18:57 [bee venom (honey bee)] veal Allergy Severe Difficulty Uncoded 05/06/19 07:26 Breathing SCALLOPS Allergy Unknown Hives Uncoded 05/05/19 18:57 - Home Medications Home Medications: Ambulatory Orders Duloxetine HCl [Cymbalta -] 60 mg PO BID 02/28/13 Atorvastatin Ca [Lipitor] 20 mg PO HS 03/19/13 Hydrochlorothiazide [Hctz -] 25 mg PO DAILY 09/22/13 Flecainide Acetate 100 mg PO DAILY 03/12/18 Cyanocobalamin (Vitamin B-12) [Cyanocobalamin Injection] 1,000 mcg IJ WEEKLY Losartan Potassium [Cozaar] 100 mg PO DAILY 05/05/19 Metaxalone [Skelaxin] 800 mg PO TID PRN 05/05/19 Methylprednisolone [Methylpred Dp] 4 mg PO ASDIR 05/05/19 Potassium Chloride [Klor-Con M20] 1 tab PO DAILY 05/05/19 Physical Exam-GI Vital Signs: Vital Signs Temperature 98.1 F 05/07/19 02:00 Pulse Rate 70 05/07/19 03:00 Respiratory Rate 14 05/07/19 03:00 Blood Pressure 82/55 L 05/07/19 03:00 O2 Sat by Pulse Oximetry (%) 100 05/06/19 22:00 Gastrointestinal Inspection: Yes: Other (Drain is draining serosanguinous fluid , not purulent. Colostomy stoma pink, not functioning yet.) Labs: CBC, BMP 05/07/19 06:00 05/07/19 06:00 INR, PTT INR 0.96 (0.83-1.09) 05/06/19 05:05 Imaging - Results Cat Scan: Report Reviewed, Image Reviewed Problem List - Problems (1) Peritonitis (acute) generalized Code(s): K65.0 - GENERALIZED (ACUTE) PERITONITIS Assessment/Plan Perforated diverticulitis with peritonitis. Pt now alert, awake, no fever, normal WBC, and drainage appears serosanguinous and not purulent. CBC, BMP 05/07/19 06:00 05/07/19 06:00 Pt doing well postop. No need for GI intervention at this time. Her last colonoscopy was 4 or 5 years ago; will defer to Dr Coles as to whether she wants another one before reversal of her colostomy in the future. Will no longer follow unless called again.
--- NOTE | 2019-05-07 08:51 | PN ---
Progress Note (short form) - Note Progress Note: doing well alert having abdominal pain - but a totally differnt pain now feels improved pod #1 s/p Hartmanns procedure for perforated viscus Vital Signs Period Temp Pulse Resp BP Sys/Colvin Pulse Ox Last 24 Hr 97.5 F-99.1 F 55-89 10-19 78-137/47-82 97-100 cor-rrr llungs clear abd soft, +ostomy +varsha drain +postop dressing ext no edema +cueva CBC, BMP // 06:00 05/07/ 06:00 Microbiology 05/05/19 21:20 Blood - Peripheral Venous Blood Culture - Preliminary NO GROWTH OBTAINED AFTER 24 HOURS, INCUBATION TO CONTINUE FOR 4 DAYS. 05/05/ 21:22 Blood - Peripheral Venous Blood Culture - Preliminary NO GROWTH OBTAINED AFTER 24 HOURS, INCUBATION TO CONTINUE FOR 4 DAYS. a/p POD #1 s/p Hartmanns procedure doing well extubated, alert contiue zosyn f/u intraoperative cultures encourage OOB encourage incentive spirometry Problem List - Problems (1) Sepsis Code(s): A41.9 - SEPSIS, UNSPECIFIED ORGANISM (2) Peritonitis (acute) generalized Code(s): K65.0 - GENERALIZED (ACUTE) PERITONITIS (3) Perforated abdominal viscus Code(s): R19.8 - OTH SYMPTOMS AND SIGNS INVOLVING THE DGSTV SYS AND ABDOMEN
--- NOTE | 2019-05-07 09:12 | PN ---
Progress Note (short form) - Note Progress Note: Seen and examined in the ICU POD 1 for Lisha's procedure hemodynamically stable extubated post op w/o complication low grade fever 99.1 good urine output Current Medications Acetaminophen (Ofirmev Injection -) 1,000 mg IVPB Q6H YUE Last Admin: 05/07/19 06:38 Dose: 1,000 mg Chlorhexidine Gluconate (Hibiclens For Decolonization -) 1 applic TP HS YUE Last Admin: 05/06/19 21:49 Dose: 1 applic Hydromorphone HCl (Hydromorphone 10 Mg/50 Ml-Ns) 10 mg STOCK TAKER STOCK TAKER YUE; Protocol Stop: 05/13/19 11:26 Last Admin: 05/06/19 12:38 Dose: 10 mg Lactated Ringer's (Lactated Ringers Solution) 1,000 ml in 1,000 mls @ 150 mls/ hr IV ASDIR YUE Last Admin: 05/07/19 06:38 Dose: 150 mls/hr Piperacillin Sod/Tazobactam (Sod 4.5 gm/ Dextrose) 100 mls @ 200 mls/hr IVPB Q8H-IV YUE; Protocol Mupirocin (Bactroban Ointment (For Decolonization) -) 1 applic NS BID YUE Stop: 05/11/19 21:59 Last Admin: 05/06/19 21:48 Dose: 1 applic Ondansetron HCl (Zofran Injection) 4 mg IVPUSH Q6H PRN PRN Reason: NAUSEA AND/OR VOMITING Vital Signs Period Temp Pulse Resp BP Sys/Colvin Pulse Ox Last 24 Hr 97.5 F-99.1 F 55-89 03-11 78-137/47-82 97-100 Intake & Output 05/04/19 05/05/19 05/06/19 05/07/19 23:59 23:59 23:59 23:59 Intake Total 2861 2549 Output Total 5250 400 Balance -7554 2149 Weight 79.379 kg 81.193 kg 83.007 kg Exam: General: awake, alert and cooperative HEENT: PERRL, anicteric sclera Pulm: insp crackles in bases CV: RRR, no m/r/g Abd: soft, mildly tender w/ palp. ELEANOR w/ serosang drainage, surgical site c/d/i Ext: WWP, no edema Neuro: AOx3, CARPENTER, CN grossly intact CBC, BMP 05/07/19 06:00 05/07/19 06:00 Microbiology 05/05/19 21:20 Blood - Peripheral Venous Blood Culture - Preliminary NO GROWTH OBTAINED AFTER 24 HOURS, INCUBATION TO CONTINUE FOR 4 DAYS. 05/05/19 21:22 Blood - Peripheral Venous Blood Culture - Preliminary NO GROWTH OBTAINED AFTER 24 HOURS, INCUBATION TO CONTINUE FOR 4 DAYS. Assessment/Plan ASSESS: -Abd Sepsis 2/2 viscous perf -Sleep Apnea (non-compliant) -HTN -HL -Mitral Valve Insufficiency -Fibromyalgia PLAN: -NPO, advance diet per surgery -Supp FiO prn for SpO2 > 92% -Nebs prn -Nocturnal CPAP -slowly restart anti-HTN meds -Maintain Large Bore IV access -Active T & S -Pain Control: STOCK TAKER -Surgical Consult s/p Ex-Lap -OOB to chair, w/ early PT -DVT ppx Stable for floor transfer from a medical stand point. Grazyna HERRERA Pulm/CCM CCT: 35m
--- NOTE | 2019-05-07 09:31 | PN ---
Progress Note, Physician - Current Medication List Current Medications: Active Medications Acetaminophen (Ofirmev Injection -) 1,000 mg IVPB Q6H YUE Last Admin: 05/07/19 06:38 Dose: 1,000 mg Chlorhexidine Gluconate (Hibiclens For Decolonization -) 1 applic TP HS YUE Last Admin: 05/06/19 21:49 Dose: 1 applic Hydromorphone HCl (Hydromorphone 10 Mg/50 Ml-Ns) 10 mg PUDDLER PILE DRIVING PUDDLER PILE DRIVING YUE; Protocol Stop: 05/13/19 11:26 Last Admin: 05/06/19 12:38 Dose: 10 mg Lactated Ringer's (Lactated Ringers Solution) 1,000 ml in 1,000 mls @ 150 mls/ hr IV ASDIR YUE Last Admin: 05/07/19 06:38 Dose: 150 mls/hr Piperacillin Sod/Tazobactam (Sod 4.5 gm/ Dextrose) 100 mls @ 200 mls/hr IVPB Q8H-IV YUE; Protocol Mupirocin (Bactroban Ointment (For Decolonization) -) 1 applic NS BID YUE Stop: 05/11/19 21:59 Last Admin: 05/06/19 21:48 Dose: 1 applic Ondansetron HCl (Zofran Injection) 4 mg IVPUSH Q6H PRN PRN Reason: NAUSEA AND/OR VOMITING - Objective Vital Signs: Vital Signs Temperature 98.1 F 05/07/19 02:00 Pulse Rate 70 05/07/19 03:00 Respiratory Rate 14 05/07/19 03:00 Blood Pressure 82/55 L 05/07/19 03:00 O2 Sat by Pulse Oximetry (%) 100 05/06/19 22:00 Cardiovascular: Yes: S1, S2 Respiratory: Yes: Regular, CTA Bilaterally Gastrointestinal: Yes: Soft, Hypoactive Bowel Sounds, Other (COLOSTOMY) Labs: CBC, BMP 05/07/19 06:00 05/07/19 06:00 INR, PTT INR 0.96 (0.83-1.09) 05/06/19 05:05 Problem List - Problems (1) Abdominal pain Assessment/Plan: ID AND SURGICAL CONSULTS APPRECIATED Operative Date: 05/06/19 Pre-Operative Diagnosis: peritonitis, perforated viscus Operation: Lisha's procedure (partial sigmoid colectomy with end sigmoid colostomy), washout of peritonitis Findings: cloudy yellow peritoneal fluid on entry - cultured; distal sigmoid colon with diverticuli, inflammatory changes, site of perforation without pelon stool contamination - resected from normal rectum back to more proximal sigmoid for end colostomy; rectal stump tagged w/Prolene; + multiple stool balls palpable in colon, rectosigmoid; abdomen/pelvis irrigated with 5L saline, ELEANOR drain RLQ left in pelvis; colostomy matured LLQ - 57mm appliance placed; lower midline incision closed loosely and packed with betadine Kerlix Post-Operative Diagnosis: Other (sigmoid perforation, peritonitis) Surgeon: Matheus Coles Needle Loom Setter: Carlos Shah IV ABX IV FLUIDS ICU CARE FOLLOW LABS Code(s): R10.9 - UNSPECIFIED ABDOMINAL PAIN Qualifiers: Abdominal location: generalized Qualified Code(s): R10.84 - Generalized abdominal pain (2) Peritonitis (acute) generalized Assessment/Plan: ABOVE Code(s): K65.0 - GENERALIZED (ACUTE) PERITONITIS (3) Sepsis Assessment/Plan: IV ABX ID ON BOARD Laboratory Tests 05/05/19 05/06/19 19:37 05:15 WBC 13.2 H 2.9 L Plt Count 420 D 362 Code(s): A41.9 - SEPSIS, UNSPECIFIED ORGANISM (4) Urinary retention Assessment/Plan: CUMMINS Code(s): R33.9 - RETENTION OF URINE, UNSPECIFIED (5) Syncope Assessment/Plan: CT HEAD NO BLEED OR CVA FOLLOW LABS CARDIO Code(s): R55 - SYNCOPE AND COLLAPSE Qualifiers: Syncope type: unspecified Qualified Code(s): R55 - Syncope and collapse
[2019-05-07] MEDS ORDERED: PIPERACILLIN/TAZOBACTAM 4.5 GM VIAL IVPB ONE ×2 (10:02→17:39)
[2019-05-07] MEDS ORDERED: DEXTROSE 5%-WATER 100 ML IVPB ONE ×2 (10:02→17:39)
[2019-05-07] MEDS: MUPIROCIN 2% TOPICAL OINTMENT FOR DECOLONIZATION NS SCH ×2 (10:04→22:12)
[2019-05-07] MEDS: HYDROmorphone *PCA* 10MG/50ML DISP.SYRIN PCA SCH (12:00)
--- NOTE | 2019-05-07 14:39 | PN ---
Progress Note, Physician Chief Complaint: no new complaints History of Present Illness: s/p Lisha's for sigmoid perforation, presumed perforated diverticulitis, with washout of peritonitis Seen and examined in ICU bed with family present Feeling better, pain tolerable with meds, using DRAWER IN PLAIN LOOM intermittently Moving well, eager to get up in chair Started ice chips this morning Guerrero with light yellow urine - volume adequate but down a bit from initially postop ELEANOR drain with serosang light fluid - 225ml out till 6am, 95 so far today colostomy with scant serosang fluid only using IS with good effort Intake & Output 05/06/19 05/07/19 05/07/19 23:59 07:59 15:59 Intake Total 1650 2549 0 Output Total 725 400 255 Balance 925 2149 -255 Weight 183 lb Intake: IV 1350 2349 LACTATED RINGERS SOLUTION 1350 1350 1,000 ml In 1,000 ml @ 150 mls/hr IV ASDIR YUE Rx#:[id number] LACTATED RINGERS SOLUTION 999 1,000 ml In 1,000 ml @ 333 mls/hr IV ONCE STA Rx #:[id number] IVPB 300 200 Oral 0 0 0 Output: Drainage 75 100 95 Abdomen 75 100 95 Urine 650 300 160 Guerrero 650 300 160 Colostomy 0 0 0 Other: Voiding Method Indwelling Catheter Indwelling Catheter Weight Measurement Method Built in [facility] - Current Medication List Current Medications: Active Medications Acetaminophen (Ofirmev Injection -) 1,000 mg IVPB Q6H [facility] Last Admin: 05/07/19 12:52 Dose: 1,000 mg Chlorhexidine Gluconate (Hibiclens For Decolonization -) 1 applic TP HS [facility] Last Admin: 05/06/19 21:49 Dose: 1 applic Hydromorphone HCl (Hydromorphone 10 Mg/50 Ml-Ns) 10 mg DRAWER IN PLAIN LOOM DRAWER IN PLAIN LOOM [facility]; Protocol Stop: 05/13/19 11:26 Last Admin: 05/07/19 12:00 Dose: Not Given Lactated Ringer's (Lactated Ringers Solution) 1,000 ml in 1,000 mls @ 150 mls/ hr IV ASDIR YUE Last Admin: 05/07/19 06:38 Dose: 150 mls/hr Piperacillin Sod/Tazobactam (Sod 4.5 gm/ Dextrose) 100 mls @ 200 mls/hr IVPB Q8H-IV YUE; Protocol Last Admin: 05/07/19 10:04 Dose: 200 mls/hr Mupirocin (Bactroban Ointment (For Decolonization) -) 1 applic NS BID YUE Stop: 05/11/19 21:59 Last Admin: 05/07/19 10:04 Dose: 1 applic Ondansetron HCl (Zofran Injection) 4 mg IVPUSH Q6H PRN PRN Reason: NAUSEA AND/OR VOMITING - Objective Vital Signs: Vital Signs Temperature 98.5 F 05/07/19 10:00 Pulse Rate 70 05/07/19 12:00 Respiratory Rate 15 05/07/19 12:00 Blood Pressure 100/66 05/07/19 12:00 O2 Sat by Pulse Oximetry (%) 99 05/07/19 12:00 Vital Signs Period Temp Pulse Resp BP Sys/Colvin Pulse Ox Last 24 Hr 97.5 F-99.1 F 55-73 10-17 78-113/47-71 97-100 Constitutional: Yes: Well Nourished, No Distress, Calm Eyes: Yes: Conjunctiva Clear, EOM Intact HENT: Yes: Atraumatic, Normocephalic Gastrointestinal: Yes: Soft, Distention (mild), Hypoactive Bowel Sounds, Tenderness (mild diffuse), Other (colostomy pink, patent, no output yet; appliance intact; RLQ ELEANOR drain with light serosang in bulb). No: Tenderness, Rebound Genitourinary: Yes: Guerrero Present. No: Hematuria Musculoskeletal: No: Joint Stiffness, Joint Swelling Extremities: No: Cool, Cyanosis Integumentary: Yes: Incision (midline dressed). No: Jaundice, Rash Wound/Incision: Yes: Dressing Dry and Intact (midline c/d/i; ELEANOR drain with serous fluid - changed for new gauze and tape), Dressing Removed (ELEANOR drain site only - changed for new dsg), Draining (ELEANOR drain with serosang fluid in bulb) Neurological: Yes: Alert, Oriented ...Motor Strength: WNL Labs: CBC, BMP 05/07/19 06:00 05/07/19 06:00 CMP Sodium 137 mmol/L (136-145) 05/07/19 06:00 Potassium 3.5 mmol/L (3.5-5.1) 05/07/19 06:00 Chloride 103 mmol/L (98-107) 05/07/19 06:00 Carbon Dioxide 26 mmol/L (21-32) 05/07/19 06:00 Anion Gap 8 MMOL/L (8-16) 05/07/19 06:00 BUN 8.4 mg/dL (7-18) 05/07/19 06:00 Creatinine 0.5 mg/dL (0.55-1.3) L 05/07/19 06:00 Est GFR (CKD-EPI)AfAm 121.92 05/07/19 06:00 Est GFR (CKD-EPI)NonAf 105.20 05/07/19 06:00 Random Glucose 104 mg/dL (74-106) 05/07/19 06:00 Lactic Acid 1.4 mmol/L (0.4-2.0) 05/06/19 13:10 Calcium 8.2 mg/dL (8.5-10.1) L 05/07/19 06:00 Phosphorus 2.8 mg/dL (2.5-4.9) 05/07/19 06:00 Magnesium 2.0 mg/dL (1.8-2.4) 05/07/19 06:00 Total Bilirubin 0.6 mg/dL (0.2-1) 05/06/19 07:00 AST 11 U/L (15-37) L 05/06/19 07:00 ALT 17 U/L (13-61) 05/06/19 07:00 Alkaline Phosphatase 60 U/L (45-117) 05/06/19 07:00 Creatine Kinase 74 U/L (26-192) 05/05/19 19:37 Troponin I < 0.02 ng/ml (0.00-0.05) 05/05/19 19:37 Total Protein 5.8 g/dl (6.4-8.2) L 05/06/19 07:00 Albumin 3.0 g/dl (3.4-5.0) L 05/06/19 07:00 TSH 1.41 uIU/ml (0.358-3.74) 05/05/19 19:37 Microbiology 05/06/19 11:00 Gram Stain - Final Peritoneal Fluid 05/05/19 21:00 Urine Culture - Final Urine - Urine Clean Catch Strep Agalactiae Group B Normal Urogenital Chica 05/05/19 21:20 Blood Culture - Preliminary Blood - Peripheral Venous NO GROWTH OBTAINED AFTER 24 HOURS, INCUBATION TO CONTINUE FOR 4 DAYS. 05/05/19 21:22 Blood Culture - Preliminary Blood - Peripheral Venous NO GROWTH OBTAINED AFTER 24 HOURS, INCUBATION TO CONTINUE FOR 4 DAYS. Problem List - Problems (1) Diverticulitis of large intestine with perforation without abscess or bleeding Assessment/Plan: POD1 s/p Lisha's procedure with washout of peritonitis multiple firm stool balls throughout colon at OR ELEANOR drain with serosang output colostomy not functioning yet Guerrero with decreasing UOP - got one IVF bolus overnight BPs ok wbc coming back up K little low - consider repleting ok on ice chips for now OOB to chair and may ambulate with assistance IS/pulm toilet RTC IV tylenol and DRAWER IN PLAIN LOOM for pain doing very well overall will change midline dressing Wednesday will need VNS arranged for after discharge - new colostomy care, possible lower midline wound care (saline-damp gauze packing daily), possible ELEANOR drain management until it is removed This patient is critically ill. Time spent reviewing chart, examining patient, talking with providers and/or family and documentation is 35 minutes. Code(s): K57.20 - DVTRCLI OF LG INT W PERFORATION AND ABSCESS W/O BLEEDING (2) Peritonitis (acute) generalized Code(s): K65.0 - GENERALIZED (ACUTE) PERITONITIS (3) Lower abdominal pain Code(s): R10.30 - LOWER ABDOMINAL PAIN, UNSPECIFIED (4) Syncope Code(s): R55 - SYNCOPE AND COLLAPSE Qualifiers: Syncope type: unspecified Qualified Code(s): R55 - Syncope and collapse (5) Dehydration Code(s): E86.0 - DEHYDRATION (6) Fibromyalgia Code(s): M79.7 - FIBROMYALGIA (7) HTN (hypertension) Code(s): I10 - ESSENTIAL (PRIMARY) HYPERTENSION Qualifiers: Hypertension type: essential hypertension Qualified Code(s): I10 - Essential (primary) hypertension (8) Ventricular bigeminy Code(s): I49.9 - CARDIAC ARRHYTHMIA, UNSPECIFIED (9) Sleep apnea Code(s): G47.30 - SLEEP APNEA, UNSPECIFIED Qualifiers: Sleep apnea type: unspecified type Qualified Code(s): G47.30 - Sleep apnea , unspecified (10) Nicotine dependence Code(s): F17.200 - NICOTINE DEPENDENCE, UNSPECIFIED, UNCOMPLICATED Qualifiers: Nicotine product type: other Substance use status: uncomplicated Qualified Code(s): F17.290 - Nicotine dependence, other tobacco product, uncomplicated
--- NOTE | 2019-05-07 19:37 | PN ---
Progress Note (short form) - Note Progress Note: Anesthesiology Post-op/Pain Service POD#1 s/p Ex-lap with Lisha's procedure under GA. Pt. doing well today. Pain managed with MEASURER, VSS. No apparent anesthesia related issues. Tolerating ice chips. 58 y.o. woman with stable post-operative course on MEASURER. Continue MEASURER for now until diet further advanced.
[2019-05-07] MEDS: CHLORHEXIDINE GLUCONATE 4% CLEANSER FOR DECOLONIZATION TP SCH (22:12)
[2019-05-08] MEDS: ACETAMINOPHEN 1000 MG/100 ML VIAL (NON FORMULARY) IVPB SCH ×4 (00:16→17:21)
[2019-05-08] MEDS ORDERED: PIPERACILLIN/TAZOBACTAM 4.5 GM VIAL IVPB ONE ×3 (01:49→16:55)
[2019-05-08] MEDS ORDERED: DEXTROSE 5%-WATER 100 ML IVPB ONE ×3 (01:49→16:55)
[2019-05-08] MEDS: PIPERACILLIN/TAZOB 4.5 GM 4.5 GM in DEXTROSE 5%-WATER 100 ML IVPB SCH ×3 (02:13→17:13)
[2019-05-08] MEDS ORDERED: LACTATED RINGERS SOLUTION 1,000 ML/1,000 ML INFUS.BAG IV SCH (06:29)
--- NOTE | 2019-05-08 06:30 | PN ---
Progress Note, Physician Chief Complaint: no new complaints History of Present Illness: s/p Lisha's for sigmoid perforation, presumed perforated diverticulitis, with washout of peritonitis Seen and examined in ICU bed then floor bed Feeling better, pain tolerable with meds, using ARBOR END MAINSPRING FORMER intermittently Moving well, up in chair frequently tolerating ice chips Guerrero out this afternoon, has not voided yet ELEANOR drain with serosang light fluid - volume decreasing colostomy with scant serosang fluid only, 25 out this am using IS with good effort pt is hungry Intake & Output 05/06/19 05/07/19 05/07/19 23:59 07:59 15:59 Intake Total 1650 2549 0 Output Total 725 400 255 Balance 925 2149 -255 Weight 183 lb Intake: IV 1350 2349 LACTATED RINGERS SOLUTION 1350 1350 1,000 ml In 1,000 ml @ 150 mls/hr IV ASDIR YUE Rx#:[id number] LACTATED RINGERS SOLUTION 999 1,000 ml In 1,000 ml @ 333 mls/hr IV ONCE STA Rx #:[id number] IVPB 300 200 Oral 0 0 0 Output: Drainage 75 100 95 Abdomen 75 100 95 Urine 650 300 160 Guerrero 650 300 160 Colostomy 0 0 0 Other: Voiding Method Indwelling Catheter Indwelling Catheter Weight Measurement Method Built in [facility] - Current Medication List Current Medications: Active Medications Acetaminophen (Ofirmev Injection -) 1,000 mg IVPB Q6H [facility] Last Admin: 05/08/19 00:16 Dose: 1,000 mg Chlorhexidine Gluconate (Hibiclens For Decolonization -) 1 applic TP HS [facility] Last Admin: 05/07/19 22:12 Dose: 1 applic Hydromorphone HCl (Hydromorphone 10 Mg/50 Ml-Ns) 10 mg ARBOR END MAINSPRING FORMER ARBOR END MAINSPRING FORMER YUE; Protocol Stop: 05/13/19 11:26 Last Admin: 05/07/19 12:00 Dose: Not Given Piperacillin Sod/Tazobactam (Sod 4.5 gm/ Dextrose) 100 mls @ 200 mls/hr IVPB Q8H-IV YUE; Protocol Last Admin: 05/08/19 02:13 Dose: 200 mls/hr Lactated Ringer's (Lactated Ringers Solution) 1,000 ml in 1,000 mls @ 100 mls/ hr IV ASDIR YUE Mupirocin (Bactroban Ointment (For Decolonization) -) 1 applic NS BID YUE Stop: 05/11/19 21:59 Last Admin: 05/07/19 22:12 Dose: 1 applic Ondansetron HCl (Zofran Injection) 4 mg IVPUSH Q6H PRN PRN Reason: NAUSEA AND/OR VOMITING - Objective Vital Signs: Vital Signs Temperature 98.3 F 05/08/19 02:00 Pulse Rate 70 05/08/19 02:00 Respiratory Rate 12 05/08/19 02:00 Blood Pressure 106/64 05/08/19 02:00 O2 Sat by Pulse Oximetry (%) 95 05/07/19 22:00 Constitutional: Yes: Well Nourished, No Distress, Calm Eyes: Yes: Conjunctiva Clear, EOM Intact HENT: Yes: Atraumatic, Normocephalic Gastrointestinal: Yes: Soft, Hypoactive Bowel Sounds, Tenderness (diffuse mild) , Other (colostomy pink, patent, productive of gas and bowel sweat; ELEANOR drain w/ serosang). No: Tenderness, Rebound Musculoskeletal: No: Joint Stiffness, Joint Swelling Extremities: No: Cool, Cyanosis Integumentary: Yes: Incision (midline dressed). No: Jaundice, Rash Wound/Incision: Yes: Dressing Dry and Intact, Draining (ELEANOR - see above). No: Dressing Removed Neurological: Yes: Alert, Oriented Labs: CBC, BMP 05/07/19 06:00 05/07/19 06:00 Microbiology 05/06/19 11:00 Gram Stain - Final Peritoneal Fluid Body Fluid Culture - Preliminary NO AEROBIC GROWTH, 24 HRS 05/05/19 21:20 Blood Culture - Preliminary Blood - Peripheral Venous NO GROWTH OBTAINED AFTER 48 HOURS, INCUBATION TO CONTINUE FOR 3 DAYS. 05/05/19 21:22 Blood Culture - Preliminary Blood - Peripheral Venous NO GROWTH OBTAINED AFTER 48 HOURS, INCUBATION TO CONTINUE FOR 3 DAYS. Problem List - Problems (1) Diverticulitis of large intestine with perforation without abscess or bleeding Assessment/Plan: POD2 s/p Lisha's procedure with washout of peritonitis multiple firm stool balls throughout colon at OR transferred to floor this morning ELEANOR drain with serosang output colostomy with gas only Guerrero out today ok on ice chips for now OOB to chair and ambulate as able IS/pulm toilet RTC IV tylenol and ARBOR END MAINSPRING FORMER for pain doing very well overall will change midline dressing tomorrow will need VNS arranged for after discharge - new colostomy care, possible lower midline wound care (saline-damp gauze packing daily), possible ELEANOR drain management until it is removed Problems reviewed: Yes Code(s): K57.20 - DVTRCLI OF LG INT W PERFORATION AND ABSCESS W/O BLEEDING (2) Peritonitis (acute) generalized Assessment/Plan: cultures negative so far Code(s): K65.0 - GENERALIZED (ACUTE) PERITONITIS (3) Lower abdominal pain Code(s): R10.30 - LOWER ABDOMINAL PAIN, UNSPECIFIED (4) Syncope Code(s): R55 - SYNCOPE AND COLLAPSE Qualifiers: Syncope type: unspecified Qualified Code(s): R55 - Syncope and collapse (5) Dehydration Code(s): E86.0 - DEHYDRATION (6) Fibromyalgia Code(s): M79.7 - FIBROMYALGIA (7) HTN (hypertension) Code(s): I10 - ESSENTIAL (PRIMARY) HYPERTENSION Qualifiers: Hypertension type: essential hypertension Qualified Code(s): I10 - Essential (primary) hypertension (8) Ventricular bigeminy Code(s): I49.9 - CARDIAC ARRHYTHMIA, UNSPECIFIED (9) Sleep apnea Code(s): G47.30 - SLEEP APNEA, UNSPECIFIED Qualifiers: Sleep apnea type: unspecified type Qualified Code(s): G47.30 - Sleep apnea , unspecified (10) Nicotine dependence Code(s): F17.200 - NICOTINE DEPENDENCE, UNSPECIFIED, UNCOMPLICATED Qualifiers: Nicotine product type: other Substance use status: uncomplicated Qualified Code(s): F17.290 - Nicotine dependence, other tobacco product, uncomplicated
--- NOTE | 2019-05-08 08:35 | PN ---
Progress Note, Physician Chief Complaint: AWAKE ALERT FEELING BETTER SEEN IN ICU EVENTS AND NOTES REVIEWED - Current Medication List Current Medications: Active Medications Acetaminophen (Ofirmev Injection -) 1,000 mg IVPB Q6H YUE Last Admin: 05/08/19 06:35 Dose: 1,000 mg Chlorhexidine Gluconate (Hibiclens For Decolonization -) 1 applic TP HS YUE Last Admin: 05/07/19 22:12 Dose: 1 applic Hydromorphone HCl (Hydromorphone 10 Mg/50 Ml-Ns) 10 mg ALLERGIST/IMMUNOLOGIST PHYSICIAN ALLERGIST/IMMUNOLOGIST PHYSICIAN YUE; Protocol Stop: 05/13/19 11:26 Last Admin: 05/07/19 12:00 Dose: Not Given Piperacillin Sod/Tazobactam (Sod 4.5 gm/ Dextrose) 100 mls @ 200 mls/hr IVPB Q8H-IV YUE; Protocol Last Admin: 05/08/19 02:13 Dose: 200 mls/hr Lactated Ringer's (Lactated Ringers Solution) 1,000 ml in 1,000 mls @ 100 mls/ hr IV ASDIR YUE Mupirocin (Bactroban Ointment (For Decolonization) -) 1 applic NS BID YUE Stop: 05/11/19 21:59 Last Admin: 05/07/19 22:12 Dose: 1 applic Ondansetron HCl (Zofran Injection) 4 mg IVPUSH Q6H PRN PRN Reason: NAUSEA AND/OR VOMITING - Objective Vital Signs: Vital Signs Temperature 98.4 F 05/08/19 06:00 Pulse Rate 72 05/08/19 06:00 Respiratory Rate 20 05/08/19 06:00 Blood Pressure 120/74 05/08/19 06:00 O2 Sat by Pulse Oximetry (%) 95 05/07/19 22:00 Constitutional: Yes: Mild Distress Cardiovascular: Yes: WNL Respiratory: Yes: CTA Bilaterally Gastrointestinal: Yes: Other (+COLOSTOMY, SOFT) Genitourinary: Yes: WNL Edema: No Labs: CBC, BMP 05/07/19 06:00 05/07/19 06:00 INR, PTT INR 0.96 (0.83-1.09) 05/06/19 05:05 Assessment/Plan PERFORATED VISCOUS S/P JUNIOR SURGICAL F/U APPRECIATED NPO ON IVF DVT PROPHYLAXIS WITH INCENTIVE SPIROMETRY CHECK LABS IN AM ID F/U IV ABX CHECK CX/SENS OOB TO CHAIR WITH ASSIST PAIN CONTROL MEDS CONTINUE PRN
[2019-05-08] MEDS ORDERED: ONDANSETRON 4 MG/2 ML VIAL IVPUSH PRN (08:44)
--- NOTE | 2019-05-08 09:45 | PN ---
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
[2019-05-08] MEDS: HYDROmorphone *PCA* 10MG/50ML DISP.SYRIN PCA SCH ×2 (10:29→11:46)
[2019-05-08] MEDS: LACTATED RINGERS SOLUTION 1,000 ML/1,000 ML INFUS.BAG IV SCH ×3 (10:29→17:21)
--- NOTE | 2019-05-08 13:50 | PN ---
Progress Note (short form) - Note Progress Note: doing well alert wants her cueva out pod #2 s/p Hartmanns procedure for perforated viscus Vital Signs Period Temp Pulse Resp BP Sys/Colvin Pulse Ox Last 24 Hr 98.1 F-99.5 F 66-80 12-20 98-120/62-89 95-99 cor-rrr lungs clear abd soft,+colostomy ext no edema +cueva CBC, BMP 05/07/19 06:00 05/07/19 06:00 Microbiology 05/06/19 11:00 Peritoneal Fluid Gram Stain - Final 05/06/19 11:00 Peritoneal Fluid Body Fluid Culture - Preliminary NO AEROBIC GROWTH, 24 HRS 05/05/19 21:20 Blood - Peripheral Venous Blood Culture - Preliminary NO GROWTH OBTAINED AFTER 48 HOURS, INCUBATION TO CONTINUE FOR 3 DAYS. 05/05/19 21:22 Blood - Peripheral Venous Blood Culture - Preliminary NO GROWTH OBTAINED AFTER 48 HOURS, INCUBATION TO CONTINUE FOR 3 DAYS. 05/05/19 21:00 Urine - Urine Clean Catch Urine Culture - Final Strep Agalactiae Group B Normal Urogenital Chica a/p POD #2 s/p Hartmanns procedure doing well contiue zosyn f/u intraoperative cultures encourage OOB encourage incentive spirometry d/c cueva Problem List - Problems (1) Sepsis Code(s): A41.9 - SEPSIS, UNSPECIFIED ORGANISM (2) Peritonitis (acute) generalized Code(s): K65.0 - GENERALIZED (ACUTE) PERITONITIS (3) Perforated abdominal viscus Code(s): R19.8 - OTH SYMPTOMS AND SIGNS INVOLVING THE DGSTV SYS AND ABDOMEN
[2019-05-08 14:46] VITALS: BMI 27.8
[2019-05-09] MEDS: ACETAMINOPHEN 1000 MG/100 ML VIAL (NON FORMULARY) IVPB SCH ×3 (00:23→12:42)
[2019-05-09] MEDS ORDERED: DEXTROSE 5%-WATER 100 ML IVPB ONE ×3 (01:52→18:22)
[2019-05-09] MEDS ORDERED: PIPERACILLIN/TAZOBACTAM 4.5 GM VIAL IVPB ONE ×3 (01:52→18:22)
[2019-05-09] MEDS: PIPERACILLIN/TAZOB 4.5 GM 4.5 GM in DEXTROSE 5%-WATER 100 ML IVPB SCH ×3 (02:23→18:31)
[2019-05-09 07:51] LABS: HEMATOCRIT 36.8 % (32.4-45.2); HEMOGLOBIN 12.2 GM/dL (10.7-15.3); MCH 30.5 pg (25.7-33.7); MCHC 33.3 g/dl (32.0-36.0); MEAN CELL VOLUME 91.6 fl (80-96); MEAN PLT VOLUME 7.2 fl (7.5-11.1); PLATELET COUNT 385 K/MM3 (134-434); RBC 4.02 M/mm3 (3.60-5.2); RDW 14.1 % (11.6-15.6); WHITE BLOOD COUNT 10.9 K/mm3 (4.0-10.0)
--- NOTE | 2019-05-09 08:39 | PN ---
Progress Note, Physician Chief Complaint: AWAKE ALERT NO FEVER OR CHILLS SEEN BY SURGERY STARTED DIET - Current Medication List Current Medications: Active Medications Acetaminophen (Ofirmev Injection -) 1,000 mg IVPB Q6H YUE Last Admin: 05/09/19 06:30 Dose: 1,000 mg Atorvastatin Calcium (Lipitor -) 20 mg PO HS YUE Duloxetine HCl (Cymbalta -) 60 mg PO BID YUE Flecainide Acetate (Tambacor -) 100 mg PO DAILY YUE Hydromorphone HCl (Hydromorphone 10 Mg/50 Ml-Ns) 10 mg LEATHER CRAFTER LEATHER CRAFTER YUE; Protocol Stop: 05/13/19 11:26 Last Admin: 05/08/19 11:46 Dose: 10 mg Lactated Ringer's (Lactated Ringers Solution) 1,000 ml in 1,000 mls @ 100 mls/ hr IV ASDIR YUE Last Admin: 05/08/19 17:21 Dose: 100 mls/hr Piperacillin Sod/Tazobactam (Sod 4.5 gm/ Dextrose) 100 mls @ 200 mls/hr IVPB Q8H-IV YUE; Protocol Last Admin: 05/09/19 02:23 Dose: 200 mls/hr - Objective Vital Signs: Vital Signs Temperature 98.4 F 05/09/19 07:08 Pulse Rate 76 05/09/19 07:08 Respiratory Rate 20 05/09/19 07:08 Blood Pressure 128/53 L 05/09/19 07:08 O2 Sat by Pulse Oximetry (%) 96 05/09/19 05:00 Constitutional: Yes: Mild Distress Cardiovascular: Yes: Regular Rate and Rhythm Respiratory: Yes: CTA Bilaterally Gastrointestinal: Yes: Soft, Other (COLOSTOMY) Genitourinary: Yes: WNL Labs: CBC, BMP 05/09/19 06:45 INR, PTT INR 0.96 (0.83-1.09) 05/06/19 05:05 Problem List - Problems (1) Diverticulitis of large intestine with perforation without abscess or bleeding Code(s): K57.20 - DVTRCLI OF LG INT W PERFORATION AND ABSCESS W/O BLEEDING (2) Perforated viscus Code(s): R19.8 - OTH SYMPTOMS AND SIGNS INVOLVING THE DGSTV SYS AND ABDOMEN (3) Fibromyalgia Code(s): M79.7 - FIBROMYALGIA (4) HTN (hypertension) Code(s): I10 - ESSENTIAL (PRIMARY) HYPERTENSION Qualifiers: Hypertension type: essential hypertension Qualified Code(s): I10 - Essential (primary) hypertension Assessment/Plan START PO DIET ADVANCE TOELRATED IV ABX PER ID/AWAIT CULTURES OOB TO CHAIR SURGERY EVAL APPRECIATED DVT PROPHYLAXIS REPLETE KCL
[2019-05-09] MEDS ORDERED: PT OWN MED DRAWER 7, Y5N ONE (09:13)
[2019-05-09] MEDS: DULoxetine HCL 30 MG CAPSULE.DR PO SCH ×2 (09:24→22:40)
[2019-05-09] MEDS: FLECAINIDE ACETATE 50 MG TABLET PO SCH (09:25)
[2019-05-09] MEDS: HYDROmorphone *PCA* 10MG/50ML DISP.SYRIN PCA SCH (09:26)
[2019-05-09 13:19] LABS: ALBUMIN 2.6 g/dl (3.4-5.0); BILIRUBIN,TOTAL 0.7 mg/dL (0.2-1); BLOOD UREA NITROGEN 4.3 mg/dL (7-18); CALCIUM 8.9 mg/dL (8.5-10.1); CREATININE 0.4 mg/dL (0.55-1.3); MAGNESIUM 1.9 mg/dL (1.8-2.4); POTASSIUM 3.4 mmol/L (3.5-5.1)
[2019-05-09] MEDS ORDERED: LACTATED RINGERS SOLUTION 1,000 ML/1,000 ML INFUS.BAG IV SCH (14:02)
--- NOTE | 2019-05-09 14:45 | PN ---
Progress Note (short form) - Note Progress Note: doing well alert cueva out ambulating on clears pod #3 s/p Hartmanns procedure for perforated viscus a/p POD #2 s/p Hartmanns procedure doing well Vital Signs Period Temp Pulse Resp BP Sys/Colvin Pulse Ox Last 24 Hr 98.0 F-98.9 F 68-82 20-20 120-153/53-84 94-98 +fever blister cor-rrr lungs clear abd soft, +ELEANOR with clear fluid, dressing intact +colostomy with output ext no edema CBC, BMP 05/09/19 06:45 05/09/19 11:45 Microbiology 05/06/19 11:00 Peritoneal Fluid Gram Stain - Final 05/06/19 11:00 Peritoneal Fluid Body Fluid Culture - Preliminary Lactose Fermenting Neg Bacilli Group D Strep Or Entero Coccus Pending Organism 05/06/19 11:00 Peritoneal Fluid Anaerobic Culture - Preliminary No growth. 05/05/19 21:20 Blood - Peripheral Venous Blood Culture - Preliminary NO GROWTH OBTAINED AFTER 72 HOURS, INCUBATION TO CONTINUE FOR 2 DAYS. 05/05/19 21:22 Blood - Peripheral Venous Blood Culture - Preliminary NO GROWTH OBTAINED AFTER 72 HOURS, INCUBATION TO CONTINUE FOR 2 DAYS. 05/05/19 21:00 Urine - Urine Clean Catch Urine Culture - Final Strep Agalactiae Group B Normal Urogenital Chica a/p POD #3 s/p hartmans procedure contiue zosyn f/u intraoperative cultures encourage OOB encourage incentive spirometry add po valtrex d/w dr moe Problem List - Problems (1) Sepsis Code(s): A41.9 - SEPSIS, UNSPECIFIED ORGANISM (2) Peritonitis (acute) generalized Code(s): K65.0 - GENERALIZED (ACUTE) PERITONITIS (3) Perforated abdominal viscus Code(s): R19.8 - OTH SYMPTOMS AND SIGNS INVOLVING THE DGSTV SYS AND ABDOMEN
--- NOTE | 2019-05-09 15:55 | PN ---
Progress Note (short form) - Note Progress Note: patient doing well, barely using CLEANING AND MAINTENANCE WORKER. Diet advanced by Dr. Coles. D/C CLEANING AND MAINTENANCE WORKER and start po pain medications.
--- NOTE | 2019-05-09 16:04 | PN ---
Progress Note, Physician Chief Complaint: pt c/o urinary frequency with IV fluids, being hungry History of Present Illness: s/p Lisha's for sigmoid perforation, presumed perforated diverticulitis, with washout of peritonitis Seen and examined in chair and bed Feeling good, pain minimal, barely using PROJECT ARCHIVIST Moving well, up in chair frequently and ambulating tolerating ice chips, voiding without Guerrero ELEANOR drain with serosang fluid turning serous - volume decreasing 195ml 2d ago, 75ml yesterday, 20ml so far today, ~20-25ml in bulb now colostomy opened up today - liquid brown stool and a few pieces per pt earlier, also gas in bag appliance and outer midline dressing needed changing using IS with good effort pt is hungry - Current Medication List Current Medications: Active Medications Acetaminophen (Tylenol -) 650 mg PO Q6H YUE Atorvastatin Calcium (Lipitor -) 20 mg PO HS YUE Duloxetine HCl (Cymbalta -) 60 mg PO BID [facility] Last Admin: 05/09/19 09:24 Dose: 60 mg Flecainide Acetate (Tambacor -) 100 mg PO DAILY [facility] Last Admin: 05/09/19 09:25 Dose: 100 mg Hydromorphone HCl (Hydromorphone 10 Mg/50 Ml-Ns) 10 mg PROJECT ARCHIVIST PROJECT ARCHIVIST [facility]; Protocol Stop: 05/13/19 11:26 Last Admin: 05/09/19 09:26 Dose: Not Given Piperacillin Sod/Tazobactam (Sod 4.5 gm/ Dextrose) 100 mls @ 200 mls/hr IVPB Q8H-IV YUE; Protocol Last Admin: 05/09/19 09:25 Dose: 200 mls/hr Lactated Ringer's (Lactated Ringers Solution) 1,000 ml in 1,000 mls @ 42 mls/ hr IV ASDIR YUE Valacyclovir HCl (Valtrex -) 500 mg PO BID [facility] - Objective Vital Signs: Vital Signs Temperature 98.9 F 05/09/19 09:00 Pulse Rate 75 05/09/19 09:00 Respiratory Rate 20 05/09/19 09:00 Blood Pressure 126/67 05/09/19 09:00 O2 Sat by Pulse Oximetry (%) 96 05/09/19 09:00 Intake & Output 05/09/19 05/09/19 05/09/19 07:59 15:59 23:59 Intake Total 1100 Output Total 225 220 Balance 875 -220 Intake: IV 1000 LACTATED RINGERS SOLUTION 1000 1,000 ml In 1,000 ml @ 100 mls/hr IV ASDIR [facility] Rx#:[id number] IVPB 100 Output: Drainage 25 20 Abdomen 25 20 Colostomy 200 200 Other: Voiding Method Toilet Constitutional: Yes: Well Nourished, No Distress, Calm Eyes: Yes: Conjunctiva Clear, EOM Intact HENT: Yes: Atraumatic, Normocephalic Gastrointestinal: Yes: Normal Bowel Sounds, Soft, Tenderness (mild, mostly incisional, lower midline and RLQ over drain site), Other (colostomy p/p/p of liquid brown stool and gas, little edematous; ELEANOR drain RLQ into pelvis with more serous output, slight pink tinge). No: Distention Genitourinary: No: Guerrero Present, Incontinence Extremities: No: Cool, Cyanosis Integumentary: Yes: Incision (lower midline dressed), Tattoos. No: Jaundice, Rash Wound/Incision: Yes: Dressing Removed (lower midline - OR packing removed from between widely spaced sutures - wound clean, red and yellow tissue, no granulation yet, little clear fluid at base of couple sites; repacked with most of one saline-damp, opened 4x4 mesh gauze - tucked serially into spaces between sutures, then covered with folded gauze and tape (after colostomy appliance replaced)), Draining (small, serous from midline sites), Unapproximated ( midline with openings between chromic sutures widely spaced - ~9cm long in total , <1cm wide, each open site no more than 1cm between approximated tissue), Other (colostomy appliance replaced using OR template to cut opening of new base - EXACTLY at stoma/skin interface, eccentric to keep edge of appliance away from midline wound; skin prep used first; 57mm base and bag placed). No: Reddened, Bleeding Neurological: Yes: Alert, Oriented Labs: CBC, BMP 05/09/19 06:45 05/09/19 11:45 Microbiology 05/06/19 11:00 Gram Stain - Final Peritoneal Fluid Body Fluid Culture - Preliminary Lactose Fermenting Neg Bacilli Group D Strep Or Entero Coccus Pending Organism Anaerobic Culture - Preliminary No growth. 05/05/19 21:20 Blood Culture - Preliminary Blood - Peripheral Venous NO GROWTH OBTAINED AFTER 72 HOURS, INCUBATION TO CONTINUE FOR 2 DAYS. 05/05/19 21:22 Blood Culture - Preliminary Blood - Peripheral Venous NO GROWTH OBTAINED AFTER 72 HOURS, INCUBATION TO CONTINUE FOR 2 DAYS. Problem List - Problems (1) Diverticulitis of large intestine with perforation without abscess or bleeding Assessment/Plan: POD3 s/p Lisha's procedure with washout of peritonitis multiple firm stool balls throughout colon at OR doing well overall ELEANOR drain with more serous output, decreasing not ready for removal until output is <30ml daily colostomy functioning appliance changed - pt education done - VNS will help her learn to manage starting clear liquids now - presuming tolerates through dinner, will advance to reg diet in am OOB to chair and ambulating well IS/pulm toilet will d/c PROJECT ARCHIVIST and IV fluids and change to po tylenol scheduled with ibuprofen for breakthrough prn midline wound looks clean - saline-damp gauze dressing changes daily to start tomorrow VNS being arranged for after discharge - new colostomy care, lower midline wound care (saline-damp gauze packing daily), possible ELEANOR drain management until it is removed discussed with CM and seen with Dr. Covington Code(s): K57.20 - DVTRCLI OF LG INT W PERFORATION AND ABSCESS W/O BLEEDING (2) Peritonitis (acute) generalized Assessment/Plan: cultures from broth only growing organisms noted abx per ID - duration per them wound clean Code(s): K65.0 - GENERALIZED (ACUTE) PERITONITIS (3) Lower abdominal pain Assessment/Plan: now incisional only Code(s): R10.30 - LOWER ABDOMINAL PAIN, UNSPECIFIED (4) Dehydration Code(s): E86.0 - DEHYDRATION (5) Fibromyalgia Code(s): M79.7 - FIBROMYALGIA (6) HTN (hypertension) Code(s): I10 - ESSENTIAL (PRIMARY) HYPERTENSION Qualifiers: Hypertension type: essential hypertension Qualified Code(s): I10 - Essential (primary) hypertension (7) Ventricular bigeminy Code(s): I49.9 - CARDIAC ARRHYTHMIA, UNSPECIFIED (8) Sleep apnea Code(s): G47.30 - SLEEP APNEA, UNSPECIFIED Qualifiers: Sleep apnea type: unspecified type Qualified Code(s): G47.30 - Sleep apnea , unspecified (9) Nicotine dependence Assessment/Plan: patient agreeable to not resuming use on discharge plans to stay quit (no vaping) Code(s): F17.200 - NICOTINE DEPENDENCE, UNSPECIFIED, UNCOMPLICATED Qualifiers: Nicotine product type: other Substance use status: uncomplicated Qualified Code(s): F17.290 - Nicotine dependence, other tobacco product, uncomplicated
[2019-05-09] MEDS ORDERED: IBUPROFEN 600 MG TABLET (FP) PO PRN (16:20)
[2019-05-09] MEDS ORDERED: KCL 10 MEQ IVPB 10 MEQ/100 ML INFUS.BAG IVPB SCH (16:30)
--- NOTE | 2019-05-09 18:14 | PN.GI ---
GI Progress Note Subjective: GI NOte: Colostomy began to function today. Tolerated clear liquids - Objective Vital Signs: Vital Signs Temperature 98.0 F 05/09/19 18:00 Pulse Rate 78 05/09/19 18:00 Respiratory Rate 20 05/09/19 18:00 Blood Pressure 142/73 05/09/19 18:00 O2 Sat by Pulse Oximetry (%) 96 05/09/19 09:00 Laboratory Tests 05/05/19 05/07/19 05/09/19 19:37 06:00 06:45 WBC 13.2 H 6.7 10.9 H BUN Creatinine Total Bilirubin AST ALT Alkaline Phosphatase Albumin 05/09/19 11:45 WBC BUN 4.3 L Creatinine 0.4 L Total Bilirubin 0.7 AST 19 ALT 13 Alkaline Phosphatase 72 Albumin 2.6 L Constitutional: No Distress Gastrointestinal Inspection: Yes: Other (functional LLQ colostomy) ...Auscultate: Yes: Hypoactive Bowel Sounds Labs: CBC, BMP 05/09/19 06:45 05/09/19 11:45 INR, PTT INR 0.96 (0.83-1.09) 05/06/19 05:05 Assessment/Plan Assessment: - s/p Lisha procedure for perforated diverticulitis Plan: -- As per Dr. Coles. -- I did discuss the role of a repeat colonoscopy prior to closure of the colostomy with Jacqueline Problem List - Problems (1) Status post Lisha procedure Code(s): Z93.3 - COLOSTOMY STATUS (2) Diverticulitis of large intestine with perforation without abscess or bleeding Code(s): K57.20 - DVTRCLI OF LG INT W PERFORATION AND ABSCESS W/O BLEEDING (3) Diverticulosis Code(s): K57.90 - DVRTCLOS OF INTEST, PART UNSP, W/O PERF OR ABSCESS W/O BLEED
[2019-05-09] MEDS: ACETAMINOPHEN 325 MG TABLET (FP) PO SCH (18:31)
[2019-05-09] MEDS: ATORVASTATIN CA 10 MG TABLET (FP) PO SCH (22:40)
[2019-05-09] MEDS: valACYclovir HCL 500 MG TABLET (FP) PO SCH (22:40)
[2019-05-10] MEDS: ACETAMINOPHEN 325 MG TABLET (FP) PO SCH ×4 (00:33→18:42)
[2019-05-10] MEDS ORDERED: DEXTROSE 5%-WATER 100 ML IVPB ONE ×3 (00:40→17:40)
[2019-05-10] MEDS ORDERED: PIPERACILLIN/TAZOBACTAM 4.5 GM VIAL IVPB ONE ×3 (00:40→17:40)
[2019-05-10] MEDS: PIPERACILLIN/TAZOB 4.5 GM 4.5 GM in DEXTROSE 5%-WATER 100 ML IVPB SCH ×3 (02:05→17:45)
--- NOTE | 2019-05-10 07:18 | PN ---
Progress Note, Physician Chief Complaint: AWAKE ALERT WALKING IN HALLWAY ATE BREAKFAST NO PAIN - Current Medication List Current Medications: Active Medications Acetaminophen (Tylenol -) 650 mg PO Q6H [facility] Last Admin: 05/10/19 07:03 Dose: 650 mg Atorvastatin Calcium (Lipitor -) 20 mg PO HS [facility] Last Admin: 05/09/19 22:40 Dose: 20 mg Duloxetine HCl (Cymbalta -) 60 mg PO BID [facility] Last Admin: 05/09/19 22:40 Dose: 60 mg Flecainide Acetate (Tambacor -) 100 mg PO DAILY [facility] Last Admin: 05/09/19 09:25 Dose: 100 mg Piperacillin Sod/Tazobactam (Sod 4.5 gm/ Dextrose) 100 mls @ 200 mls/hr IVPB Q8H-IV [facility]; Protocol Last Admin: 05/09/19 18:31 Dose: 200 mls/hr Ibuprofen (Motrin -) 600 mg PO Q6H PRN PRN Reason: PAIN LEVEL 7 - 10 Valacyclovir HCl (Valtrex -) 500 mg PO BID [facility] Last Admin: 05/09/19 22:40 Dose: 500 mg - Objective Vital Signs: Vital Signs Temperature 98 F 05/10/19 06:58 Pulse Rate 74 05/10/19 06:58 Respiratory Rate 20 05/10/19 06:58 Blood Pressure 149/67 05/10/19 06:58 O2 Sat by Pulse Oximetry (%) 96 05/09/19 21:00 Constitutional: Yes: Mild Distress Cardiovascular: Yes: Regular Rate and Rhythm Respiratory: Yes: WNL Gastrointestinal: Yes: Other (COLOSOTMY FUNCTIONING) Genitourinary: Yes: WNL Musculoskeletal: Yes: WNL Extremities: Yes: WNL Labs: CBC, BMP 05/09/19 06:45 05/09/19 11:45 INR, PTT INR 0.96 (0.83-1.09) 05/06/19 05:05 Problem List - Problems (1) Diverticulitis of large intestine with perforation without abscess or bleeding Code(s): K57.20 - DVTRCLI OF LG INT W PERFORATION AND ABSCESS W/O BLEEDING (2) Perforated viscus Code(s): R19.8 - OTH SYMPTOMS AND SIGNS INVOLVING THE DGSTV SYS AND ABDOMEN (3) Fibromyalgia Code(s): M79.7 - FIBROMYALGIA (4) HTN (hypertension) Code(s): I10 - ESSENTIAL (PRIMARY) HYPERTENSION Qualifiers: Hypertension type: essential hypertension Qualified Code(s): I10 - Essential (primary) hypertension Assessment/Plan LABS REVIEWED AWAITING CULTURES CHANGE ROZ TO SHAUN MAHONEY TOMORROW OOB TO CHAIR
[2019-05-10 08:34] LABS: HEMATOCRIT 33.4 % (32.4-45.2); HEMOGLOBIN 11.5 GM/dL (10.7-15.3); MCH 30.4 pg (25.7-33.7); MCHC 34.3 g/dl (32.0-36.0); MEAN CELL VOLUME 88.6 fl (80-96); MEAN PLT VOLUME 7.1 fl (7.5-11.1); PLATELET COUNT 407 K/MM3 (134-434); RBC 3.77 M/mm3 (3.60-5.2); WHITE BLOOD COUNT 9.1 K/mm3 (4.0-10.0)
[2019-05-10 08:49] LABS: CALCIUM 8.5 mg/dL (8.5-10.1); CREATININE 0.4 mg/dL (0.55-1.3); POTASSIUM 3.5 mmol/L (3.5-5.1)
[2019-05-10 09:26] LABS: BLOOD UREA NITROGEN 2.8 mg/dL (7-18)
--- NOTE | 2019-05-10 09:43 | PN ---
Progress Note, Physician - Current Medication List Current Medications: Active Medications Acetaminophen (Tylenol -) 650 mg PO Q6H [facility] Last Admin: 05/10/19 07:03 Dose: 650 mg Atorvastatin Calcium (Lipitor -) 20 mg PO HS [facility] Last Admin: 05/09/19 22:40 Dose: 20 mg Duloxetine HCl (Cymbalta -) 60 mg PO BID [facility] Last Admin: 05/09/19 22:40 Dose: 60 mg Flecainide Acetate (Tambacor -) 100 mg PO DAILY [facility] Last Admin: 05/09/19 09:25 Dose: 100 mg Piperacillin Sod/Tazobactam (Sod 4.5 gm/ Dextrose) 100 mls @ 200 mls/hr IVPB Q8H-IV [facility]; Protocol Last Admin: 05/10/19 02:05 Dose: 200 mls/hr Ibuprofen (Motrin -) 600 mg PO Q6H PRN PRN Reason: PAIN LEVEL 7 - 10 Valacyclovir HCl (Valtrex -) 500 mg PO BID [facility] Last Admin: 05/09/19 22:40 Dose: 500 mg - Objective Vital Signs: Vital Signs Temperature 98 F 05/10/19 06:58 Pulse Rate 74 05/10/19 06:58 Respiratory Rate 20 05/10/19 06:58 Blood Pressure 149/67 05/10/19 06:58 O2 Sat by Pulse Oximetry (%) 96 05/09/19 21:00 Labs: CBC, BMP 05/10/19 07:34 05/10/19 07:34 INR, PTT INR 0.96 (0.83-1.09) 05/06/19 05:05 Problem List - Problems (1) Diverticulitis of large intestine with perforation without abscess or bleeding Code(s): K57.20 - DVTRCLI OF LG INT W PERFORATION AND ABSCESS W/O BLEEDING (2) Perforated viscus Code(s): R19.8 - OTH SYMPTOMS AND SIGNS INVOLVING THE DGSTV SYS AND ABDOMEN (3) Fibromyalgia Code(s): M79.7 - FIBROMYALGIA (4) HTN (hypertension) Code(s): I10 - ESSENTIAL (PRIMARY) HYPERTENSION Qualifiers: Hypertension type: essential hypertension Qualified Code(s): I10 - Essential (primary) hypertension
[2019-05-10] MEDS: valACYclovir HCL 500 MG TABLET (FP) PO SCH ×2 (10:02→22:17)
[2019-05-10] MEDS: DULoxetine HCL 30 MG CAPSULE.DR PO SCH ×2 (10:02→22:17)
[2019-05-10] MEDS ORDERED: PT OWN MED DRAWER 7, Y5N ONE ×2 (10:07→21:59)
[2019-05-10] MEDS: FLECAINIDE ACETATE 50 MG TABLET PO SCH (11:10)
--- NOTE | 2019-05-10 12:06 | PN.GI ---
GI Progress Note Subjective: GI NOte: Tolerated a solid meal. Has not yet changed her colostomy which is functioning - Objective Vital Signs: Vital Signs Temperature 98 F 05/10/19 06:58 Pulse Rate 74 05/10/19 06:58 Respiratory Rate 20 05/10/19 06:58 Blood Pressure 149/67 05/10/19 06:58 O2 Sat by Pulse Oximetry (%) 96 05/09/19 21:00 Constitutional: No Distress Gastrointestinal Inspection: Yes: Other (functional LLQ colostomy, healing incisions) ...Auscultate: Yes: Normoactive Bowel Sounds ...Palpate: Yes: Soft Labs: CBC, BMP 05/10/19 07:34 05/10/19 07:34 INR, PTT INR 0.96 (0.83-1.09) 05/06/19 05:05 Assessment/Plan Assessment: - s/p Lisha procedure for perforated diverticulitis with functional colostomy and now tolerating solids Plan: -- As per Dr. Coles. Problem List - Problems (1) Status post Lisha procedure Code(s): Z93.3 - COLOSTOMY STATUS (2) Diverticulitis of large intestine with perforation without abscess or bleeding Code(s): K57.20 - DVTRCLI OF LG INT W PERFORATION AND ABSCESS W/O BLEEDING (3) Diverticulosis Code(s): K57.90 - DVRTCLOS OF INTEST, PART UNSP, W/O PERF OR ABSCESS W/O BLEED
--- NOTE | 2019-05-10 15:09 | PN ---
Progress Note (short form) - Note Progress Note: doing well no complaints pod #4 s/p Hartmanns procedure for perforated viscus Vital Signs Period Temp Pulse Resp BP Sys/Colvin Pulse Ox Last 24 Hr 98 F-98.0 F 74-78 20-20 142-149/67-73 96 cor-rrr lungs clear abd soft,nt +colostomy function wound is clean, +ELEANOR ext no edema CBC, BMP 05/10/19 07:34 05/10/19 07:34 Microbiology 05/06/19 11:00 Peritoneal Fluid Gram Stain - Final 05/06/19 11:00 Peritoneal Fluid Body Fluid Culture - Preliminary Escherichia Coli Group D Strep Or Entero Coccus Pending Organism#2 05/06/19 11:00 Peritoneal Fluid Anaerobic Culture - Preliminary Pending Organism 05/05/19 21:20 Blood - Peripheral Venous Blood Culture - Preliminary NO GROWTH OBTAINED AFTER 96 HOURS, INCUBATION TO CONTINUE FOR 1 DAYS. 05/05/19 21:22 Blood - Peripheral Venous Blood Culture - Preliminary NO GROWTH OBTAINED AFTER 96 HOURS, INCUBATION TO CONTINUE FOR 1 DAYS. 05/05/19 21:00 Urine - Urine Clean Catch Urine Culture - Final Strep Agalactiae Group B Normal Urogenital Chica a/p POD #4 s/p hartmans procedure contiue zosyn f/u intraoperative cultures encourage OOB encourage incentive spirometry po valtrex for oral HSV can switch to po augmentin for another 3 to 5 days (total 7 to 10 days) when ready for d/c per surgery d/w dr garcia Problem List - Problems (1) Sepsis Code(s): A41.9 - SEPSIS, UNSPECIFIED ORGANISM (2) Peritonitis (acute) generalized Code(s): K65.0 - GENERALIZED (ACUTE) PERITONITIS (3) Perforated abdominal viscus Code(s): R19.8 - OTH SYMPTOMS AND SIGNS INVOLVING THE DGSTV SYS AND ABDOMEN
--- NOTE | 2019-05-10 15:53 | PATH ---
Surgical Pathology Report Patient Name: ERROL IRWIN Med. Rec. #: [id number] /Age/Gender: 1960 (Age: 58) / F Account: [id number] Location: [facility] MED/SURG Taken: 05/06/2019 Received: 05/08/2019 Reported: 05/10/2019 Physicians: Amari Mitchell M.D. Specimen(s) Received PORTION OF SIGMOID COLON STITCH JEAN PROXIMAL Clinical History History of diverticulitis (recently treated), peritonitis with presumed perforated viscus Final Diagnosis PORTION OF SIGMOID, RESECTION: SEGMENT OF COLON SHOWING DIVERTICULOSIS AND ASSOCIATED ACUTE AND CHRONIC DIVERTICULITIS; FOCAL SEROSAL DISCONTINUATION WITH TRANSMURAL ACUTE INFLAMMATION AND ACUTE SEROSITIS, CONSISTENT WITH VISCUS PERFORATION. VIABLE MARGINS. Electronically Signed Chalino Hooker M.D. Gross Description Received in formalin labeled "portion of sigmoid," is a 16 cm in length portion of bowel with 2 stapled mucosal margins and moderate attached fat. There is a suture present marking the proximal end of the specimen, per the surgeon. The serosa is mcdaniel-hodgson with a focal defect and abundant exudate. The bowel lumen contains abundant fecal material. The mucosa is mcdaniel with flattened folds. Sectioning reveals multiple diverticula containing fecal material. Production Utility Worker sections are submitted in 9 cassettes as follows: 1-proximal mucosal margin of resection; 2-distal mucosal margin of resection; 6-5-ujkuifnv from rupture site; 1-1-nimxxqqobx diverticula. /05/09/2019 saudi05/09/2019
--- NOTE | 2019-05-10 17:03 | PN ---
Progress Note, Physician Chief Complaint: no new complaints History of Present Illness: s/p Lisha's for sigmoid perforation from perforated diverticulitis, with washout of peritonitis Seen and examined in bed Feeling tired, pain minimal, tylenol controlling it Moving well, up in chair frequently and ambulating tolerated diet today ELEANOR drain with serous fluid, 80ml yesterday, 20 so far today colostomy functioning, mostly liquid brown stool and gas on antibiotics per ID cultures noted from OR - Current Medication List Current Medications: Active Medications Acetaminophen (Tylenol -) 650 mg PO Q6H [facility] Last Admin: 05/10/19 13:54 Dose: 650 mg Atorvastatin Calcium (Lipitor -) 20 mg PO HS [facility] Last Admin: 05/09/19 22:40 Dose: 20 mg Duloxetine HCl (Cymbalta -) 60 mg PO BID [facility] Last Admin: 05/10/19 10:02 Dose: 60 mg Flecainide Acetate (Tambacor -) 100 mg PO DAILY [facility] Last Admin: 05/10/19 11:10 Dose: 100 mg Piperacillin Sod/Tazobactam (Sod 4.5 gm/ Dextrose) 100 mls @ 200 mls/hr IVPB Q8H-IV [facility]; Protocol Last Admin: 05/10/19 10:02 Dose: 200 mls/hr Ibuprofen (Motrin -) 600 mg PO Q6H PRN PRN Reason: PAIN LEVEL 7 - 10 Valacyclovir HCl (Valtrex -) 500 mg PO BID [facility] Last Admin: 05/10/19 10:02 Dose: 500 mg - Objective Vital Signs: Vital Signs Temperature 98.2 F 05/10/19 13:00 Pulse Rate 68 05/10/19 13:00 Respiratory Rate 20 05/10/19 13:00 Blood Pressure 125/70 05/10/19 13:00 O2 Sat by Pulse Oximetry (%) 96 05/10/19 11:00 Constitutional: Yes: Well Nourished, No Distress, Calm Eyes: Yes: Conjunctiva Clear, EOM Intact HENT: Yes: Atraumatic, Normocephalic Gastrointestinal: Yes: Normal Bowel Sounds, Soft, Tenderness (mild incisional only), Other (colostomy p/p/p, appliance intact; ELEANOR drain with serous fluid in bulb). No: Distention Extremities: No: Cool, Cyanosis Integumentary: Yes: Incision (lower midline, dressed), Tattoos. No: Jaundice, Rash Wound/Incision: Yes: Dressing Dry and Intact (serous drainage on dressing), Dressing Removed (and changed - 9cm wound with 5 spaces between sutured spots, ~ 2cm deep, not quite 1cm wide; spaces packed with single opened-up saline- dampened 4x4 gauze, tucked continuously, trimmed at end; covered with folded 4x4 and paper tape), Draining (serous on gauze), Unapproximated Neurological: Yes: Alert, Oriented Labs: CBC, BMP 05/10/19 07:34 05/10/19 07:34 CMP Sodium 137 mmol/L (136-145) 05/10/19 07:34 Potassium 3.5 mmol/L (3.5-5.1) 05/10/19 07:34 Chloride 100 mmol/L (98-107) 05/10/19 07:34 Carbon Dioxide 29 mmol/L (21-32) 05/10/19 07:34 Anion Gap 8 MMOL/L (8-16) 05/10/19 07:34 BUN 2.8 mg/dL (7-18) L* 05/10/19 07:34 Creatinine 0.4 mg/dL (0.55-1.3) L 05/10/19 07:34 Est GFR (CKD-EPI)AfAm 131.21 05/10/19 07:34 Est GFR (CKD-EPI)NonAf 113.21 05/10/19 07:34 Random Glucose 114 mg/dL (74-106) H 05/10/19 07:34 Lactic Acid 1.4 mmol/L (0.4-2.0) 05/06/19 13:10 Calcium 8.5 mg/dL (8.5-10.1) 05/10/19 07:34 Phosphorus 2.8 mg/dL (2.5-4.9) 05/07/19 06:00 Magnesium 1.9 mg/dL (1.8-2.4) 05/09/19 11:45 Total Bilirubin 0.7 mg/dL (0.2-1) 05/09/19 11:45 AST 19 U/L (15-37) 05/09/19 11:45 ALT 13 U/L (13-61) 05/09/19 11:45 Alkaline Phosphatase 72 U/L (45-117) 05/09/19 11:45 Creatine Kinase 74 U/L (26-192) 05/05/19 19:37 Troponin I < 0.02 ng/ml (0.00-0.05) 05/05/19 19:37 Total Protein 6.0 g/dl (6.4-8.2) L 05/09/19 11:45 Albumin 2.6 g/dl (3.4-5.0) L 05/09/19 11:45 TSH 1.41 uIU/ml (0.358-3.74) 05/05/19 19:37 Microbiology 05/06/19 11:00 Gram Stain - Final Peritoneal Fluid Body Fluid Culture - Preliminary Escherichia Coli Group D Strep Or Entero Coccus Pending Organism#2 Anaerobic Culture - Preliminary Pending Organism 05/05/19 21:20 Blood Culture - Preliminary Blood - Peripheral Venous NO GROWTH OBTAINED AFTER 96 HOURS, INCUBATION TO CONTINUE FOR 1 DAYS. 05/05/19 21:22 Blood Culture - Preliminary Blood - Peripheral Venous NO GROWTH OBTAINED AFTER 96 HOURS, INCUBATION TO CONTINUE FOR 1 DAYS. Problem List - Problems (1) Diverticulitis of large intestine with perforation without abscess or bleeding Assessment/Plan: POD4 s/p Lisha's procedure with washout of peritonitis doing well overall ELEANOR drain with serous output - will plan to remove drain immediately prior to discharge home colostomy functioning - may change appliance prior to d/c again with family present for educational purposes tolerating regular diet - consider pad machine feeder to see (low-fiber diet for ~2 wks, then back to high fiber and plenty of water/fluids) OOB to chair and ambulating well IS/pulm toilet complete abx per ID - another 3-5 days Augmentin on discharge home pain controlled with nonnarcotics - prn at home midline wound clean, starting to granulate - saline-damp gauze dressing changes daily - may show family how to do dressing tomw prior to d/c VNS arranged for new colostomy care, lower midline wound care (saline-damp gauze packing daily) - to start Wednesday plan for d/c home tomorrow afternoon with initial supplies f/u with Dr. Coles next Wed in [facility] f/u with Dr. Shah in her absence in early May postop instructions in d/c plan discussed with Dr. Mulligan Code(s): K57.20 - DVTRCLI OF LG INT W PERFORATION AND ABSCESS W/O BLEEDING (2) Peritonitis (acute) generalized Code(s): K65.0 - GENERALIZED (ACUTE) PERITONITIS (3) Lower abdominal pain Code(s): R10.30 - LOWER ABDOMINAL PAIN, UNSPECIFIED (4) Fibromyalgia Code(s): M79.7 - FIBROMYALGIA (5) HTN (hypertension) Code(s): I10 - ESSENTIAL (PRIMARY) HYPERTENSION Qualifiers: Hypertension type: essential hypertension Qualified Code(s): I10 - Essential (primary) hypertension (6) Ventricular bigeminy Code(s): I49.9 - CARDIAC ARRHYTHMIA, UNSPECIFIED (7) Sleep apnea Code(s): G47.30 - SLEEP APNEA, UNSPECIFIED Qualifiers: Sleep apnea type: unspecified type Qualified Code(s): G47.30 - Sleep apnea , unspecified (8) Nicotine dependence Code(s): F17.200 - NICOTINE DEPENDENCE, UNSPECIFIED, UNCOMPLICATED Qualifiers: Nicotine product type: other Substance use status: uncomplicated Qualified Code(s): F17.290 - Nicotine dependence, other tobacco product, uncomplicated
[2019-05-10] MEDS: ATORVASTATIN CA 10 MG TABLET (FP) PO SCH (22:17)
[2019-05-11] MEDS: ACETAMINOPHEN 325 MG TABLET (FP) PO SCH ×3 (00:10→13:43)
[2019-05-11] MEDS ORDERED: PIPERACILLIN/TAZOBACTAM 4.5 GM VIAL IVPB ONE ×2 (01:32→09:43)
[2019-05-11] MEDS ORDERED: DEXTROSE 5%-WATER 100 ML IVPB ONE ×2 (01:33→09:43)
[2019-05-11] MEDS: PIPERACILLIN/TAZOB 4.5 GM 4.5 GM in DEXTROSE 5%-WATER 100 ML IVPB SCH ×2 (01:46→09:54)
--- NOTE | 2019-05-11 07:36 | DS ---
Physical Examination Vital Signs: Vital Signs Temperature 98.6 F 05/11/19 02:30 Pulse Rate 92 H 05/11/19 02:30 Respiratory Rate 20 05/11/19 02:30 Blood Pressure 148/95 05/11/19 02:30 O2 Sat by Pulse Oximetry (%) 96 05/10/19 21:00 Labs: CBC, BMP 05/10/19 07:34 05/10/19 07:34 Discharge Summary Problems reviewed: Yes Reason For Visit: FIBROMYALGIA, SYNCOPE, ABDOMINAL PAIN Current Active Problems Abdominal pain (Acute) Diverticulitis of large intestine with perforation without abscess or bleeding ( Acute) Diverticulosis (Acute) Elevated lactic acid level (Acute) Hypomagnesemia (Acute) Hyponatremia (Acute) Lactic acid increased (Acute) Lower abdominal pain (Acute) Nicotine dependence (Acute) Perforated viscus (Acute) Peritonitis (acute) generalized (Acute) Sepsis (Acute) Sleep apnea (Acute) Status post Lisha procedure (Acute) Syncope (Acute) UTI (urinary tract infection) (Acute) Urinary retention (Acute) Condition: Good - Instructions Diet, Activity, Other Instructions: Postoperative instructions: You had a partial sigmoid colon resection with colostomy and washout of peritonitis on by Dr. Matheus Coles of [facility]. Dr. Carlos Shah assisted during the surgery. This was most likely caused by a perforation from diverticulitis. Activity: Resume your usual activities gradually, but no heavy exertion or lifting more than 10-15 pounds for about 6 weeks. Leave the dressing on the drain site for 24-48 hours, then remove it. You may need to re-cover the site with small gauze and tape, or a bandaid, for several more days, until it stops draining or leaking any fluid. It will seal up by itself. You may shower daily starting after your drain dressing comes off in 1-2 days. You can shower with the colostomy appliance in place, but take the dressing/packing off/out of the midline abdominal wound. Just pat the incision areas dry after. No bath or swimming until the skin incision has healed up. Eat lightly at first, but advance to your usual diet as tolerated. You will need plenty of fiber and water /noncaffeineated fluids daily, but start with low-fiber and build back up to high fiber in about 2-3 weeks. Wound Care: Your midline abdominal wound will need to be gently packed daily with saline-dampened mesh gauze, tucked between the sutured spots. Take care not to leave much damp gauze on surrounding skin, and cover the site with a small folded gauze and tape to hold. The dressing should be done once a day, after a shower if you take one (remove the dressing/packing to shower). It is ok to get the wound clean with soap and water. It will heal up slowly from the inside out. Visiting nurse will come to your home to assist with the dressing changes and to monitor the wound, as well as help you with caring for your new colostomy. Colostomy care: use the plastic template you were shown/given to guide cutting out the opening in each new appliance base. The hole does not have to be in the center of the base, just cut to fit like you were shown. Keep the appliance as far from the midline wound as possible until the wound heals up completely. Make sure almost no skin is visible around the edge of the stoma, inside the appliance base, which would be exposed to stool in the bag. Use skin prep on clean/dry skin before applying the adhesive part of the base, every time. Your base and bag are currently 57mm, 2-1/4 inch size, two-piece appliance, with clip on the bag. Pain: For pain, you may use and alternate Tylenol (acetaminophen) 1-2 pills and/ or ibuprofen 200 mg (1-3 pills) every 6 hours each as needed; this means that you can take one OR the other at 3-hour intervals. Do not take more than 4000 mg of acetaminophen in a day. Take medications as prescribed or indicated on the labeling. You may also need to complete a course of antibiotics. Take all medications as prescribed, even if you are feeling better. Follow-up: Call [phone] to make your postop appointment with Dr. Coles ( Saturday 05/19). Clinic is held in [facility] on the fifth floor of [facility]. Call Dr. Coles's office at [phone] if you have: * increasing pain not responsive to pain medication * fever of 101F or higher * vomiting * unusual or increasing bleeding or drainage from wounds * increasing redness or swelling at wound sites You may also call Dr. Shah's office, and should make an appointment to see him in early May as well. Also, see your primary medical doctor (Dr. Pereira) within 1-2 weeks. You will need to see Dr. Alvares in about 2 months to schedule a colonoscopy through the stoma and of the rectal stump, prior to getting your colostomy reversed. Referrals: Porter Pereira MD [Primary Care Provider] - 2 Weeks Matheus Coles MD [Staff Physician] - (SEE BELOW) Maggy Alvares MD [Staff Physician] - (2 months) Carlos Shah MD [Staff Physician] - (call for appointment to see him in early May, as advised) Disposition: HOME - Home Medications Comprehensive Discharge Medication List: Ambulatory Orders Duloxetine HCl [Cymbalta -] 60 mg PO BID 02/28/13 Atorvastatin Ca [Lipitor] 20 mg PO HS 03/19/13 Hydrochlorothiazide [Hctz -] 25 mg PO DAILY 09/22/13 Flecainide Acetate 100 mg PO DAILY 03/12/18 Cyanocobalamin (Vitamin B-12) [Cyanocobalamin Injection] 1,000 mcg IJ WEEKLY Losartan Potassium [Cozaar] 100 mg PO DAILY 05/05/19 Metaxalone [Skelaxin] 800 mg PO TID PRN 05/05/19 Methylprednisolone [Methylpred Dp] 4 mg PO ASDIR 05/05/19 Potassium Chloride [Klor-Con M20] 1 tab PO DAILY 05/05/19 Acetaminophen [Tylenol .Regular Strength -] 650 mg PO Q6H tablet 05/11/19 Amoxicillin/Potassium Clav [Augmentin 500-125 Tablet] 1 each PO BID #10 tablet 05/11/19 Ibuprofen [Motrin -] 600 mg PO Q6H PRN tablet 05/11/19 Valacyclovir HCl [Valtrex -] 500 mg PO BID #14 tablet 05/11/19
[2019-05-11] MEDS ORDERED: PT OWN MED DRAWER 7, Y5N ONE (09:43)
[2019-05-11] MEDS: DULoxetine HCL 30 MG CAPSULE.DR PO SCH (09:54)
[2019-05-11] MEDS: valACYclovir HCL 500 MG TABLET (FP) PO SCH (09:54)
[2019-05-11] MEDS: FLECAINIDE ACETATE 50 MG TABLET PO SCH (13:43)
[2019-05-11 16:29] VITALS: BP 128/71; PULSE 72; TEMP 97.7
--- NOTE | 2019-05-11 17:21 | PN ---
Progress Note, Physician History of Present Illness: s/p Lisha's for sigmoid perforation from perforated diverticulitis, with washout of peritonitis Seen and examined in bed tolerating diet seen by nutrition ELEANOR drain with serous fluid - removed at bedside colostomy functioning learning dressing changes on antibiotics per ID - to complete course orally (augmentin 875mg bid x 5 days) danilo Gamez at bedside - Current Medication List Current Medications: Active Medications Acetaminophen (Tylenol -) 650 mg PO Q6H [facility] Last Admin: 05/11/19 13:43 Dose: 650 mg Atorvastatin Calcium (Lipitor -) 20 mg PO HS [facility] Last Admin: 05/10/19 22:17 Dose: 20 mg Duloxetine HCl (Cymbalta -) 60 mg PO BID [facility] Last Admin: 05/11/19 09:54 Dose: 60 mg Flecainide Acetate (Tambacor -) 100 mg PO DAILY [facility] Last Admin: 05/11/19 13:43 Dose: 100 mg Piperacillin Sod/Tazobactam (Sod 4.5 gm/ Dextrose) 100 mls @ 200 mls/hr IVPB Q8H-IV [facility]; Protocol Last Admin: 05/11/19 09:54 Dose: 200 mls/hr Ibuprofen (Motrin -) 600 mg PO Q6H PRN PRN Reason: PAIN LEVEL 7 - 10 Last Admin: 05/11/19 09:54 Dose: 600 mg Valacyclovir HCl (Valtrex -) 500 mg PO BID [facility] Last Admin: 05/11/19 09:54 Dose: 500 mg - Objective Vital Signs: Vital Signs Temperature 97.7 F 05/11/19 14:00 Pulse Rate 72 05/11/19 14:00 Respiratory Rate 20 05/11/19 14:00 Blood Pressure 128/71 05/11/19 14:00 O2 Sat by Pulse Oximetry (%) 97 05/11/19 09:00 Constitutional: Yes: Well Nourished, No Distress, Calm Eyes: Yes: Conjunctiva Clear, EOM Intact HENT: Yes: Atraumatic, Normocephalic Gastrointestinal: Yes: Soft, Other (colostomy pink/patent/productive of soft brown stool). No: Distention, Tenderness (minimal incisional only) Extremities: No: Cool, Cyanosis Integumentary: Yes: Incision (lower midline dressed), Tattoos. No: Jaundice, Rash Wound/Incision: Yes: Dressing Dry and Intact, Dressing Removed (lower midline - replaced with saline-damp opened 4x4 gauze, tucked into spaces between sutures, TRIMMED to minimize damp gauze over intact skin), Draining (small serous on gauze only), Unapproximated (between sutured sites). No: Reddened Neurological: Yes: Alert, Oriented Labs: no new labs Problem List - Problems (1) Diverticulitis of large intestine with perforation without abscess or bleeding Assessment/Plan: POD5 s/p Lisha's procedure with washout of peritonitis doing well ELEANOR drain with serous output - removed without difficulty at bedside dressed with small folded gauze and tegaderm - remove dressing 24-48 hrs and keep covered daily until healed after that colostomy functioning - appliance changed and demonstrated for pt and daughter tolerating regular diet OOB to chair and ambulating well IS/pulm toilet complete abx per ID - another 5 days Augmentin Rx to start tonight pain controlled with nonnarcotics - prn tyl/ibu at home midline wound clean, early granulation - saline-damp gauze dressing changes daily - demonstrated for pt and daughter VNS arranged for new colostomy care, lower midline wound care (saline-damp gauze packing daily) - to start tomorrow given supplies to start with - including skin prep for colostomy base f/u with Dr. Coles next Wed in [facility] - call for appt f/u with Dr. Shah in her absence in early May postop instructions in d/c plan Code(s): K57.20 - DVTRCLI OF LG INT W PERFORATION AND ABSCESS W/O BLEEDING (2) Peritonitis (acute) generalized Code(s): K65.0 - GENERALIZED (ACUTE) PERITONITIS (3) Lower abdominal pain Code(s): R10.30 - LOWER ABDOMINAL PAIN, UNSPECIFIED (4) Fibromyalgia Code(s): M79.7 - FIBROMYALGIA (5) HTN (hypertension) Code(s): I10 - ESSENTIAL (PRIMARY) HYPERTENSION Qualifiers: Hypertension type: essential hypertension Qualified Code(s): I10 - Essential (primary) hypertension (6) Ventricular bigeminy Code(s): I49.9 - CARDIAC ARRHYTHMIA, UNSPECIFIED (7) Sleep apnea Code(s): G47.30 - SLEEP APNEA, UNSPECIFIED Qualifiers: Sleep apnea type: unspecified type Qualified Code(s): G47.30 - Sleep apnea , unspecified (8) Nicotine dependence Assessment/Plan: pt agrees she has now quit vaping Code(s): F17.200 - NICOTINE DEPENDENCE, UNSPECIFIED, UNCOMPLICATED Qualifiers: Nicotine product type: other Substance use status: uncomplicated Qualified Code(s): F17.290 - Nicotine dependence, other tobacco product, uncomplicated
== END 2019-05-11 17:37 | disposition home health service (06) | DRG 853 ==
LOC: JER 18:06 → JERBED 05-06 00:31 → JICU 05-06 06:23 → J8W 05-08 08:21
PROVIDERS: ADMIT Family Medicine; ATTEND Family Medicine
PROC: 0D1N0Z4 Bypass Sigmoid Colon to Cutaneous, Open Approach (ICD-10-PCS; 2019-05-06)
PROC: 3E1M38Z Irrigation of Peritoneal Cavity using Irrigating Substance, Percutaneous Approach (ICD-10-PCS; 2019-05-06)
PROC: 0DTN0ZZ Resection of Sigmoid Colon, Open Approach (ICD-10-PCS; principal; 2019-05-06 08:46)
DX: A41.9 Sepsis, unspecified organism (principal); K65.0 Generalized (acute) peritonitis; E87.1 Hypo-osmolality and hyponatremia; R42 Dizziness and giddiness; M79.7 Fibromyalgia; E86.0 Dehydration; R19.8 Other specified symptoms and signs involving the digestive system and abdomen; F17.210 Nicotine dependence, cigarettes, uncomplicated; R10.30 Lower abdominal pain, unspecified; R79.89 Other specified abnormal findings of blood chemistry; K57.90 Diverticulosis of intestine, part unspecified, without perforation or abscess without bleeding; I10 Essential (primary) hypertension; G47.30 Sleep apnea, unspecified; E83.42 Hypomagnesemia
CPT/HCPCS: 36415; 70450-TC; 70486-TC; 71045-TC-FY; 72125-TC; 74175-TC; 74177-TC; 76705-TC; 80048; 80053; 81003; 82550; 83605; 83735; 84100; 84443; 84484; 85025; 85027; 85610; 86850; 86900; 86901; 87040; 87070; 87075; 87076; 87086; 87186; 87205; 88307-TC; 93005; 93010; 94010; 99285-25; J0131; J7030; Q9967

== ENCOUNTER 2019-06-05 02:25 | Inpatient (IN) | payer OTHER, BC ==
[2019-06-05] MEDS ORDERED: SODIUM CHLORIDE 0.9% 500 ML INFUS.BAG IV ONE (03:11)
[2019-06-05] MEDS ORDERED: SIMETHICONE 80 MG TAB.CHEW (FP) PO ONE (03:11)
[2019-06-05] MEDS ORDERED: ACETAMINOPHEN 1000 MG/100 ML VIAL (NON FORMULARY) IVPB ONE (03:12)
--- NOTE | 2019-06-05 03:12 | PDOC ---
Attending Attestation - Resident Resident Name: Abad Forbes - ED Attending Attestation I have performed the following: I have examined & evaluated the patient, The case was reviewed & discussed with the resident, I agree w/resident's findings & plan - HPI HPI: 06/05/19 03:07 Pt comes with abdominal pain. She is anxious because she has diaverticulitis and a couple months back she had a diverticular colon perforation. Pt was taken to the OR and she had peritonitis and placement of a colostomy bag. Pt was eating veggies from a veggie platter today. She had nothing else to eat. She is hoping that her diffuse abd pain is simply gas. - Physicial Exam PE: 06/05/19 03:11 Agree with resident exam. - Medical Decision Making 06/05/19 03:12 Pt will have basic labs; NSS, simethicone and ofirmev for pain. She will be reassessed 06/05/19 04:58 Pt has WBC count with a left shift; chem normal; pt will be sent for CT abd/ pelvis with IV contrast. 06/05/19 04:59 UA pending 06/10/19 05:30 Pt will be signed out to the day ER team
[2019-06-05] MEDS ORDERED: ACETAMINOPHEN INJECTION 100 ML IVPB ONE (03:43)
[2019-06-05 04:10] LABS: BASO % 0.5 % (0-2.0); EOS % 0.4 % (0-4.5); HEMOGLOBIN 12.9 GM/dL (10.7-15.3); LYMPH % 8.2 % (8-40); MCHC 33.8 g/dl (32.0-36.0); MEAN CELL VOLUME 88.6 fl (80-96); MEAN PLT VOLUME 7.1 fl (7.5-11.1); MONO % 3.8 % (3.8-10.2); NEUT % 87.1 % (42.8-82.8); PLATELET COUNT 392 K/MM3 (134-434); RBC 4.29 M/mm3 (3.60-5.2); RDW 14.6 % (11.6-15.6); WHITE BLOOD COUNT 11.2 K/mm3 (4.0-10.0)
--- NOTE | 2019-06-05 04:26 | PDOC ---
History of Present Illness - General Chief Complaint: Pain, Acute Stated Complaint: SEVERE ABD PAIN Time Seen by Provider: 06/05/19 02:50 History Source: Patient Exam Limitations: No Limitations - History of Present Illness Initial Comments: 06/05/19 04:26 58yF w PMHx HTN, diverticulitis s/p recent partial sigmoid colectomy w colostomy presenting w sudden onset R abdominal pain at 11pm last night. Did not take any meds. Abdomen not distended, 10/10 pain. Lisha procedure and peritonitis washout performed by Dr Coles on 05/06/19 for perforated diverticular colon. Denies fever, chest pain, SOB, nausea/vomiting, urinary/ bowel mvmt changes. Past History - Past Medical History Allergies/Adverse Reactions: Allergies Allergy/AdvReac Type Severity Reaction Status Date / Time No Known Drug Allergies Allergy Unknown Verified 05/05/19 18:57 venom-honey bee Allergy Verified 05/05/19 18:57 [bee venom (honey bee)] veal Allergy Severe Difficulty Uncoded 05/06/19 07:26 Breathing SCALLOPS Allergy Unknown Hives Uncoded 05/05/19 18:57 Home Medications: Ambulatory Orders Duloxetine HCl [Cymbalta -] 60 mg PO BID 02/28/13 Atorvastatin Ca [Lipitor] 20 mg PO HS 03/19/13 Hydrochlorothiazide [Hctz -] 25 mg PO DAILY 09/22/13 Flecainide Acetate 100 mg PO DAILY 03/12/18 Cyanocobalamin (Vitamin B-12) [Cyanocobalamin Injection] 1,000 mcg IJ WEEKLY Losartan Potassium [Cozaar] 100 mg PO DAILY 05/05/19 Metaxalone [Skelaxin] 800 mg PO TID PRN 05/05/19 Potassium Chloride [Klor-Con M20] 1 tab PO DAILY 05/05/19 Acetaminophen [Tylenol .Regular Strength -] 650 mg PO Q6H tablet 05/11/19 Ibuprofen [Motrin -] 600 mg PO Q6H PRN tablet 05/11/19 Valacyclovir HCl [Valtrex -] 500 mg PO BID #14 tablet 05/11/19 Anemia: Yes Asthma: No Cancer: No Cardiac Disorders: Yes (MVP, BIGEMENY) CVA: No COPD: No CHF: No Dementia: No Diabetes: No GI Disorders: Yes (HIATAL HERNIA S/P SX) Disorders: No HTN: Yes Hypercholesterolemia: Yes Liver Disease: No Seizures: No Thyroid Disease: No - Surgical History Abdominal Surgery: Yes (HIATAL HERNIA) Appendectomy: No Cardiac Surgery: No Cholecystectomy: No Lung Surgery: (THORACENTESIS 2010) Neurologic Surgery: Yes Orthopedic Surgery: Yes (R. Knee, L. Ankle, L. Wrist, L. Knee) - Immunization History Td Vaccination: Yes Immunization Up to Date: Yes - Psycho Social/Smoking Cessation Hx Smoking Status: No Smoking History: Never smoked Years of Tobacco Use: 0 Have you smoked in the past 12 months: Yes Number of Cigarettes Smoked Daily: 0 If you are a former smoker, when did you quit?: quit cigs 30 yrs ago Cigars Per Day: 0 'Breaking Loose' booklet given: 05/06/19 Hx Alcohol Use: Yes (SOCIAL) Drug/Substance Use Hx: No Substance Use Type: None Hx Substance Use Treatment: No Review of Systems - Review of Systems Constitutional: No: Chills, Fever HEENTM: No: Eye Pain, Nose Pain, Throat Pain Respiratory: No: Cough, Shortness of Breath Cardiac (ROS): No: Chest Pain, Palpitations ABD/GI: No: Abdominal Distended, Constipated, Diarrhea, Nausea, Vomiting : No: Burning, Dysuria, Hematuria Musculoskeletal: No: Back Pain, Joint Pain Integumentary: No: Bruising, Flushing Neurological: No: Headache, Seizure, Tingling Psychiatric: No: Anxiety, Depression, Stressors Endocrine: No: Excessive Sweating, Flushing, Intolerance to Cold, Intolerance to Heat Hematologic/Lymphatic: No: Anemia, Blood Clots *Physical Exam - Vital Signs Last Vital Signs Temp Pulse Resp BP Pulse Ox 98.1 F 75 18 115/80 99 06/05/19 02:48 06/05/19 02:48 06/05/19 02:48 06/05/19 02:48 06/05/19 02:48 - Physical Exam General Appearance: Yes: Nourished, Appropriately Dressed, Moderate Distress HEENT: positive: EOMI, YONNY, Normal Voice. negative: Scleral Icterus (R), Scleral Icterus (L), Nasal Congestion Respiratory/Chest: positive: Lungs Clear, Normal Breath Sounds. negative: Chest Tender, Respiratory Distress Cardiovascular: positive: Regular Rhythm, Regular Rate, S1, S2. negative: Edema , Murmur Gastrointestinal/Abdominal: positive: Normal Bowel Sounds, Tender (mild tenderness R lateral umbilical, RLQ, neg [place]), Flat, Soft, Other (colostomy bag in place, non tender/erythematous/warm). negative: Distended, Guarding, Rebound, Hernia, Mass Musculoskeletal: negative: CVA Tenderness (R), CVA Tenderness (L) Extremity: positive: Normal Capillary Refill Integumentary: positive: Normal Color Neurologic: positive: quality assurance II-XII NML intact, Fully Oriented, Alert, Normal Response, Responsive. negative: Confused, Disoriented ED Treatment Course - LABORATORY CBC & Chemistry Diagram: 06/05/19 03:51 06/05/19 03:51 - ADDITIONAL ORDERS Additional order review: 06/05/19 03:51 RBC 4.29 MCV 88.6 MCHC 33.8 RDW 14.6 MPV 7.1 L Neutrophils % 87.1 H Lymphocytes % 8.2 Monocytes % 3.8 Eosinophils % 0.4 D Basophils % 0.5 D - Medications Given in the ED: ED Medications Discontinued Medications Generic Name Dose Route Start Last Admin Trade Name Freq PRN Reason Stop Dose Admin Acetaminophen 1,000 mg 06/05/19 03:12 06/05/19 03:56 Ofirmev Injection - IVPB 06/05/19 03:13 1,000 mg ONCE ONE Administration Simethicone 80 mg 06/05/19 03:11 06/05/19 04:17 Mylicon - PO 06/05/19 03:12 80 mg NOW ONE Administration Sodium Chloride 500 ml 06/05/19 03:11 06/05/19 03:56 Normal Saline - IV 06/05/19 03:12 500 ml ONCE ONE Administration Medical Decision Making - Medical Decision Making 06/05/19 04:36 CT A/P WBC 11 w L shift, UA has 1+ blood --- 58yF w PMHx HTN, diverticulitis s/p recent partial sigmoid colectomy w colostomy presenting w sudden onset R abdominal pain at 11pm last night. Diverticulitis vs surgery complications vs kidney stone (UA 1+ blood). Low concern for SBO (not distended) vs cholelithasis (neg Montejo) vs UTI (no infection on UA) Given tylenol, 0.5L NS, simethicone, 4 morphine Anticipate admit for abdominal pathology - pending CT A/P Sign out to day team Discharge - Discharge Information Problems reviewed: Yes Clinical Impression/Diagnosis: Abdominal pain Qualifiers: Abdominal location: right lower quadrant Qualified Code(s): R10.31 - Right lower quadrant pain Condition: Stable - Follow up/Referral Referrals: Porter Pereira MD [Primary Care Provider] - - Patient Discharge Instructions - Post Discharge Activity
[2019-06-05 04:29] LABS: ALBUMIN 3.9 g/dl (3.4-5.0); BILIRUBIN,TOTAL 0.2 mg/dL (0.2-1); BLOOD UREA NITROGEN 13.2 mg/dL (7-18); CALCIUM 9.7 mg/dL (8.5-10.1); CREATININE 0.7 mg/dL (0.55-1.3); POTASSIUM 4.1 mmol/L (3.5-5.1); TOT PROT 7.4 g/dl (6.4-8.2)
[2019-06-05] MEDS ORDERED: morphine CARPU-JECT 4 MG/1 ML DISP.SYRIN IVPUSH ONE (05:52)
[2019-06-05] MEDS ORDERED: morphine SULFATE 4 MG/ML VIAL ONE (06:00)
[2019-06-05 06:39] LABS: URINE APPEARANCE Clear; URINE BILIRUBIN Negative (NEGATIVE); URINE COLOR Yellow; URINE GLUCOSE (UA) Negative (NEGATIVE); URINE KETONE Negative (NEGATIVE); URINE LEUK ESTERASE Negative (NEGATIVE); URINE NITRITE Negative (NEGATIVE); URINE PROTEIN Negative (NEGATIVE); URINE UROBILINOGEN 0.2 mg/dL (0.2-1.0)
--- NOTE | 2019-06-05 07:53 | PDOC ---
*Physical Exam - Vital Signs Last Vital Signs Temp Pulse Resp BP Pulse Ox 98.1 F 85 15 118/79 98 06/05/19 02:48 06/05/19 06:49 06/05/19 06:49 06/05/19 06:49 06/05/19 06:49 ED Treatment Course - LABORATORY CBC & Chemistry Diagram: 06/08/19 08:30 06/08/19 08:30 - ADDITIONAL ORDERS Additional order review: Laboratory Results 06/05/19 06/05/19 05:35 03:51 Sodium 136 Potassium 4.1 Chloride 99 Carbon Dioxide 30 Anion Gap 7 L BUN 13.2 Creatinine 0.7 Est GFR (CKD-EPI)AfAm 109.15 Est GFR (CKD-EPI)NonAf 94.17 Random Glucose 161 H Calcium 9.7 Total Bilirubin 0.2 AST 17 ALT 23 Alkaline Phosphatase 110 Total Protein 7.4 Albumin 3.9 Urine Color Yellow Urine Appearance Clear Urine pH 7.0 Ur Specific [place] 1.020 Urine Protein Negative Urine Glucose (UA) Negative Urine Ketones Negative Urine Blood 1+ H Urine Nitrite Negative Urine Bilirubin Negative Urine Urobilinogen 0.2 Ur Leukocyte Esterase Negative 06/05/19 03:51 RBC 4.29 MCV 88.6 MCHC 33.8 RDW 14.6 MPV 7.1 L Neutrophils % 87.1 H Lymphocytes % 8.2 Monocytes % 3.8 Eosinophils % 0.4 D Basophils % 0.5 D - Medications Given in the ED: ED Medications Discontinued Medications Generic Name Dose Route Start Last Admin Trade Name Kevinq PRN Reason Stop Dose Admin Acetaminophen 1,000 mg 06/05/19 03:12 06/05/19 03:56 Ofirmev Injection - IVPB 06/05/19 03:13 1,000 mg ONCE ONE Administration Morphine Sulfate 4 mg 06/05/19 05:52 06/05/19 06:17 Morphine Injection - IVPUSH 06/05/19 05:53 4 mg ONCE ONE Administration Simethicone 80 mg 06/05/19 03:11 06/05/19 04:17 Mylicon - PO 06/05/19 03:12 80 mg NOW ONE Administration Sodium Chloride 500 ml 06/05/19 03:11 06/05/19 03:56 Normal Saline - IV 06/05/19 03:12 500 ml ONCE ONE Administration Medical Decision Making - Medical Decision Making 06/05/19 08:04 CT abdomen and pelvis + for partial small bowel obstruction fluid collection that could represent an abscess message left with Dr. Coles's service expecting call back. Marlyn for possible abscess 06/05/19 08:39 Dr Carlos Shah's service contacted Dr. Pereira' service contacted Dr. Reddy is covering surgeon Admitted 06/05/19 10:01 06/14/19 09:38 Discharge - Discharge Information Problems reviewed: Yes Clinical Impression/Diagnosis: Small bowel obstruction, partial Abdominal pain Qualifiers: Abdominal location: right lower quadrant Qualified Code(s): R10.31 - Right lower quadrant pain Condition: Stable Disposition: HOME - Follow up/Referral - Patient Discharge Instructions - Post Discharge Activity
[2019-06-05] MEDS ORDERED: PIPERACILLIN/TAZOB 3.375 GM 3.375 GM in DEXTROSE 5%-WATER - 50 ML IVPB ONE (07:57)
[2019-06-05] MEDS ORDERED: PIPERACILLIN/TAZOB 3.375 GM 3.375 GM/50 ML BAG IVPB ONE (08:19)
[2019-06-05 08:36] LABS: EPI CELLS 5 /HPF (0-5/HPF); URINE RBC 3 /hpf (0-4); URINE WBC 10 /hpf (0-5)
[2019-06-05] MEDS ORDERED: morphine CARPU-JECT 2 MG/1 ML DISP.SYRIN IVPUSH ONE (08:41)
[2019-06-05] MEDS ORDERED: MORPHINE SULFATE 2 MG/ML VIAL ONE ×2 (08:46→12:33)
[2019-06-05] MEDS ORDERED: MORPHINE SULFATE 2 MG/ML VIAL IVPUSH PRN (11:12)
[2019-06-05] MEDS ORDERED: METOPROLOL TARTRATE 5 MG/5 ML VIAL IVPB PRN (11:18)
--- NOTE | 2019-06-05 11:22 | HP ---
Admitting History and Physical - Primary Care Physician PCP: Porter Pereira - Admission Chief Complaint: Abdominal pain History of Present Illness: 58yF w PMHx HTN, diverticulitis s/p recent partial sigmoid colectomy w colostomy presenting w sudden onset R abdominal pain at 11pm last night. Did not take any meds. Abdomen not distended, 10/10 pain. Lisha procedure and peritonitis washout performed by Dr Coles on 05/06/19 for perforated diverticular colon. Denies fever, chest pain, SOB, nausea/vomiting, urinary/ bowel mvmt changes. On CT abd/pelvis shows high grade partial SBO. 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 Cardiovascular: Yes: HTN, Hyperlipdemia, Mitral Insufficiency, Murmur, Other ( arrhythmias (MVP, BIGEMINY), h/o symptomatic bradycardia) Pulmonary: Yes: Sleep Apnea (not using CPAP) Gastrointestinal: Yes: Diverticulitis (tx from 04/12 to just after txgiving w/ abx (Cipro/Flagyl)), Diverticulosis, Hiatal Hernia (s/p repair 10 yrs ago - recurrent on CT) Heme/Onc: Yes: Anemia Musculoskeletal: Yes: Other (neck pain recently (few days of low-dose prednisone 5-4-3)) Rheumatology: Yes: Fibromyalgia - Past Surgical History Past Surgical History: Yes: Colonoscopy (5 yrs ago [facility]), Hernia Repair (hiatal hernia repair laparoscopically 10 yrs ago [place]), Hysterectomy, Joint Replacement ((R. Knee, L. Ankle, L. Wrist, L. Knee)) - Smoking History Smoking history: Never smoked Have you smoked in the past 12 months: Yes Aproximately how many cigarettes per day: 0 If you are a former smoker, when did you quit?: quit cigs 30 yrs ago - Alcohol/Substance Use Hx Alcohol Use: Yes (SOCIAL) History of Substance Use: reports: None - Social History ADL: Independent Occupation: retired History of Recent Travel: Yes ([place] in March) Home Medications - Allergies Allergies/Adverse Reactions: Allergies Allergy/AdvReac Type Severity Reaction Status Date / Time No Known Drug Allergies Allergy Unknown Verified 05/05/19 18:57 venom-honey bee Allergy Verified 05/05/19 18:57 [bee venom (honey bee)] veal Allergy Severe Difficulty Uncoded 05/06/19 07:26 Breathing SCALLOPS Allergy Unknown Hives Uncoded 05/05/19 18:57 - Home Medications Home Medications: Ambulatory Orders Duloxetine HCl [Cymbalta -] 60 mg PO BID 02/28/13 Atorvastatin Ca [Lipitor] 20 mg PO HS 03/19/13 Hydrochlorothiazide [Hctz -] 25 mg PO DAILY 09/22/13 Flecainide Acetate 100 mg PO DAILY 03/12/18 Cyanocobalamin (Vitamin B-12) [Cyanocobalamin Injection] 1,000 mcg IJ WEEKLY Losartan Potassium [Cozaar] 100 mg PO DAILY 05/05/19 Metaxalone [Skelaxin] 800 mg PO TID PRN 05/05/19 Potassium Chloride [Klor-Con M20] 1 tab PO DAILY 05/05/19 Acetaminophen [Tylenol .Regular Strength -] 650 mg PO Q6H tablet 05/11/19 Ibuprofen [Motrin -] 600 mg PO Q6H PRN tablet 05/11/19 Valacyclovir HCl [Valtrex -] 500 mg PO BID #14 tablet 05/11/19 Review of Systems - Review of Systems Constitutional: reports: No Symptoms Eyes: reports: No Symptoms HENT: reports: No Symptoms Neck: reports: No Symptoms Cardiovascular: reports: No Symptoms Respiratory: reports: No Symptoms Gastrointestinal: reports: Abdominal Pain Genitourinary: reports: No Symptoms Breasts: reports: No Symptoms Reported Musculoskeletal: reports: No Symptoms Integumentary: reports: No Symptoms Neurological: reports: No Symptoms Endocrine: reports: No Symptoms Hematology/Lymphatic: reports: No Symptoms Psychiatric: reports: No Symptoms Physical Examination Vital Signs: Vital Signs Temperature 98.1 F 06/05/19 02:48 Pulse Rate 78 06/05/19 08:54 Respiratory Rate 17 06/05/19 08:54 Blood Pressure 104/69 06/05/19 08:54 O2 Sat by Pulse Oximetry (%) 98 06/05/19 08:54 Constitutional: Yes: Well Nourished, No Distress, Calm Cardiovascular: Yes: Regular Rate and Rhythm Respiratory: Yes: Regular Gastrointestinal: Yes: Hypoactive Bowel Sounds, Tenderness (LUQ,LLQ), Other ( Colostomy) Renal/: Yes: WNL Musculoskeletal: Yes: Muscle Weakness Extremities: Yes: WNL Edema: No Peripheral Pulses WNL: Yes Neurological: Yes: Alert, Oriented Psychiatric: Yes: Alert, Oriented Labs: CBC, BMP 06/05/19 03:51 06/05/19 03:51 Imaging - Results Cat Scan: Report Reviewed Problem List - Problems (1) Partial small bowel obstruction Assessment/Plan: -Surgical consult -NPO -IVF -AXR in AM -Pain management -NGT if N/V for decompression -Zofran PRN for N/V Problems reviewed: Yes Code(s): K56.600 - PARTIAL INTESTINAL OBSTRUCTION, UNSPECIFIED TO CAUSE (2) Abdominal pain Assessment/Plan: -Surgical consult -NPO -IVF -AXR in AM -Pain management Problems reviewed: Yes Code(s): R10.9 - UNSPECIFIED ABDOMINAL PAIN Qualifiers: Abdominal location: right lower quadrant Qualified Code(s): R10.31 - Right lower quadrant pain (3) Colostomy status Problems reviewed: Yes Code(s): Z93.3 - COLOSTOMY STATUS Assessment/Plan see problem list Sister and daughter at bedside
[2019-06-05] MEDS: LACTATED RINGERS SOLUTION 1,000 ML IV SCH ×2 (11:29→19:57)
--- NOTE | 2019-06-05 15:21 | CONSULT ---
- Consultation REQUESTING PROVIDER: CONSULT REQUEST: We have been asked to surgically evaluate this patient for abdominal pain s/p cooper's procedure for perforated diverticulitis. PCP:Porter Pereira HISTORY OF PRESENT ILLNESS: 58yF w PMHx HTN, diverticulitis s/p Hartmen's procedure with Dr Coles and Dr. Shah on 05/06/19. Presents with sudden onset lower abdominal pain and nausea since 11pm last night. She states that up until last night she hasn't had any problems, her ostomy has been functioning and has been following up with Dr Shah and saw him last week. Patient denies fever, chest pain, SOB. Past History Allergies/Adverse Reactions: Allergies Allergy/AdvReac Type Severity Reaction Status Date / Time No Known Drug Allergies Allergy Unknown Verified 05/05/19 18:57 venom-honey bee Allergy Verified 05/05/19 18:57 [bee venom (honey bee)] veal Allergy Severe Difficulty Uncoded 05/06/19 07:26 Breathing SCALLOPS Allergy Unknown Hives Uncoded 05/05/19 18:57 Home Medications: Duloxetine HCl [Cymbalta -] 60 mg PO BID 02/28/13 Atorvastatin Ca [Lipitor] 20 mg PO HS 03/19/13 Hydrochlorothiazide [Hctz -] 25 mg PO DAILY 09/22/13 Flecainide Acetate 100 mg PO DAILY 03/12/18 Cyanocobalamin (Vitamin B-12) [Cyanocobalamin Injection] 1,000 mcg IJ WEEKLY Losartan Potassium [Cozaar] 100 mg PO DAILY 05/05/19 Metaxalone [Skelaxin] 800 mg PO TID PRN 05/05/19 Potassium Chloride [Klor-Con M20] 1 tab PO DAILY 05/05/19 Acetaminophen [Tylenol .Regular Strength -] 650 mg PO Q6H tablet 05/11/19 Ibuprofen [Motrin -] 600 mg PO Q6H PRN tablet 05/11/19 Valacyclovir HCl [Valtrex -] 500 mg PO BID #14 tablet 05/11/19 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 Cardiovascular: Yes: HTN, Hyperlipdemia, Mitral Insufficiency, Murmur, Other ( arrhythmias (MVP, BIGEMINY), h/o symptomatic bradycardia) Pulmonary: Yes: Sleep Apnea (not using CPAP) Gastrointestinal: Yes: Diverticulitis (tx from 04/12 Cipro/Flagyl)), Diverticulosis, Hiatal Hernia (s/p repair 10 yrs ago - recurrent on CT) Heme/Onc: Yes: Anemia Musculoskeletal: Yes: Other (neck pain recently (few days of low-dose prednisone 5-4-3)) Rheumatology: Yes: Fibromyalgia - Past Surgical History Past Surgical History: Yes: Colonoscopy (5 yrs ago [facility]), Hernia Repair (hiatal hernia repair laparoscopically 10 yrs ago [place]), Hysterectomy, Joint Replacement ((R. Knee, L. Ankle, L. Wrist, L. Knee)) - Smoking History Smoking history: Never smoked Have you smoked in the past 12 months: Yes Aproximately how many cigarettes per day: 0 If you are a former smoker, when did you quit?: quit cigs 30 yrs ago - Alcohol/Substance Use Hx Alcohol Use: Yes (SOCIAL) History of Substance Use: reports: None - Social History ADL: Independent Occupation: retired History of Recent Travel: Yes ([place] in March) - Review of Systems Constitutional: No: Chills, Fever HEENTM: No: Eye Pain, Nose Pain, Throat Pain Respiratory: No: Cough, Shortness of Breath Cardiac (ROS): No: Chest Pain, Palpitations ABD/GI: As per above HPI, : No: Burning, Dysuria, Hematuria Musculoskeletal: No: Back Pain, Joint Pain Integumentary: No: Bruising, Flushing Neurological: No: Headache, Seizure, Tingling Psychiatric: No: Anxiety, Depression, Stressors Endocrine: No: Excessive Sweating, Flushing, Intolerance to Cold, Intolerance to Heat Hematologic/Lymphatic: No: Anemia, Blood Clots *Physical Exam Vital Signs Temp 98.1 F 06/05/19 02:48 Pulse 78 06/05/19 08:54 Resp 17 06/05/19 08:54 BP 104/69 06/05/19 08:54 Pulse Ox 98 06/05/19 08:54 Intake & Output 06/04/19 06/05/19 06/05/19 23:59 11:59 23:59 Weight 170 lb Other: Height 5 ft 8 in Body Mass Index (BMI) 25.8 - Physical Exam General Appearance: A&OX3, mild Distress 2/2 abd pain HEENT: Normal Voice. NC/AT Respiratory/Chest: Unlabored resp on RA Gastrointestinal/Abdominal: soft, ND Diffusely Tender to palpation throughout with most TTP at RLQ. midline incision healing well via secondary intention and packed at openings at inferior and superior aspect < 0.5x0.5cm. no evidence of collection or d/c, no foul odor, colostomy functioning with formed soft stool in the bag- appliance well positioned. No palpable masses. 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 negative: Confused, Disoriented CT abd/pelvis shows high grade partial SBO. Problem List - Problems (1) Partial small bowel obstruction Assessment/Plan: 58 yo female with evidence of partial SBO s/p cooper's procedure and functioning colostomy. Currently stable. 1) Strict NPO except for sips with meds 2) Insert NGT and maintain to low continuous wall suction with [place] sump tube 3) RPT abd CT with contrast per Dr Reddy 4) Pain control 5) antiemetics 6) Surgery to follow Evaluation and plan discussed with Dr Reddy Code(s): K56.600 - PARTIAL INTESTINAL OBSTRUCTION, UNSPECIFIED TO CAUSE
[2019-06-05] MEDS ORDERED: LIDOCAINE HCL 2% (50ML VIAL) SQ ONE (17:20)
[2019-06-05 17:45] VITALS: BMI 27.0
[2019-06-05] MEDS ORDERED: ONDANSETRON 4 MG/2 ML VIAL IVPUSH PRN (17:47)
--- NOTE | 2019-06-05 18:02 | PN ---
Progress Note (short form) - Note Progress Note: surgery pt seen and examined. ?psbo on ct and colicky pain. pt had large amount of carrots before this happened. incision with pus at upper pole. skin opened to better drain. not the source of pain. colostomy - producing. abd soft, minimal tendernesss Plan- likely psbo from large fiber bolus in setting of some residual gut dysfuction. will repeat ct with oral contrast. will likely start liquid diet based on ct findings. pt is not toxic. cont same wound care.
[2019-06-05] MEDS: HYDROmorphone HCl 2 MG/ML VIAL IVPB PRN (18:43)
[2019-06-05] MEDS: ACETAMINOPHEN 1000 MG/100 ML VIAL (NON FORMULARY) IVPB PRN (18:56)
[2019-06-06] MEDS: ACETAMINOPHEN 1000 MG/100 ML VIAL (NON FORMULARY) IVPB PRN (08:07)
--- NOTE | 2019-06-06 08:42 | PN ---
Progress Note, Physician History of Present Illness: feels better - Current Medication List Current Medications: Active Medications Acetaminophen (Ofirmev Injection -) 1,000 mg IVPB Q6H PRN PRN Reason: PAIN LEVEL 1-5 Last Admin: 06/06/19 08:07 Dose: 1,000 mg Enoxaparin Sodium (Lovenox -) 40 mg SQ DAILY YUE Hydromorphone HCl (Dilaudid Vial -) 2 mg IVPB Q6H PRN PRN Reason: PAIN LEVEL 6-10 Last Admin: 06/05/19 18:43 Dose: 2 mg Lactated Ringer's (Lactated Ringers Solution) 1,000 mls @ 75 mls/hr IV ASDIR YUE Last Admin: 06/05/19 19:57 Dose: 75 mls/hr Metoprolol Tartrate (Lopressor Injection -) 5 mg IVPB Q4H PRN PRN Reason: HYPERTENSION Ondansetron HCl (Zofran Injection) 4 mg IVPUSH Q6H PRN PRN Reason: NAUSEA - Objective Vital Signs: Vital Signs Temperature 98.4 F 06/06/19 06:43 Pulse Rate 76 06/06/19 06:43 Respiratory Rate 18 06/06/19 06:43 Blood Pressure 135/72 06/06/19 06:43 O2 Sat by Pulse Oximetry (%) 98 06/05/19 20:52 Cardiovascular: Yes: Regular Rate and Rhythm Respiratory: Yes: Regular, CTA Bilaterally Gastrointestinal: Yes: Normal Bowel Sounds, Soft, Tenderness (mild), Other (colostomy functioning) Labs: CBC, BMP 06/05/19 03:51 06/05/19 03:51 Problem List - Problems (1) Partial small bowel obstruction Assessment/Plan: -Surgical consult noted -NPO -IVF ct scan results pending -Pain management -NGT if N/V for decompression -Zofran PRN for N/V Code(s): K56.600 - PARTIAL INTESTINAL OBSTRUCTION, UNSPECIFIED TO CAUSE (2) Abdominal pain Assessment/Plan: as above Code(s): R10.9 - UNSPECIFIED ABDOMINAL PAIN Qualifiers: Abdominal location: right lower quadrant Qualified Code(s): R10.31 - Right lower quadrant pain (3) Colostomy status Assessment/Plan: functioning Code(s): Z93.3 - COLOSTOMY STATUS
[2019-06-06 08:56] LABS: BASO % 0.7 % (0-2.0); EOS % 3.5 % (0-4.5); HEMOGLOBIN 10.9 GM/dL (10.7-15.3); LYMPH % 26.7 % (8-40); MCH 29.9 pg (25.7-33.7); MCHC 34.2 g/dl (32.0-36.0); MEAN CELL VOLUME 87.6 fl (80-96); MEAN PLT VOLUME 6.8 fl (7.5-11.1); NEUT % 60.1 % (42.8-82.8); PLATELET COUNT 321 K/MM3 (134-434); RBC 3.65 M/mm3 (3.60-5.2); RDW 14.6 % (11.6-15.6); WHITE BLOOD COUNT 6.5 K/mm3 (4.0-10.0)
[2019-06-06 09:29] LABS: BILIRUBIN,TOTAL 0.7 mg/dL (0.2-1); BLOOD UREA NITROGEN 10.7 mg/dL (7-18); CALCIUM 8.6 mg/dL (8.5-10.1); CREATININE 0.6 mg/dL (0.55-1.3); POTASSIUM 3.5 mmol/L (3.5-5.1); TOT PROT 5.8 g/dl (6.4-8.2)
[2019-06-06] MEDS: HYDROmorphone HCl 2 MG/ML VIAL IVPB PRN (09:32)
[2019-06-06] MEDS: ENOXAPARIN NA (PORCINE) 40 MG/0.4 ML DISP.SYRIN SQ SCH (09:33)
--- NOTE | 2019-06-06 11:58 | PN ---
Progress Note (short form) - Note Progress Note: ID CONSULT DICTATED R/O INFECTED SEROMA V. ABSCESS PARTIAL SBO S/P JUNIOR PROCEDURE FOR DIVERTICULITIS AWAIT C/S EMPIRIC ZOSYN
--- NOTE | 2019-06-06 13:06 | CONS ---
INFECTIOUS DISEASE CONSULTATION DATE OF CONSULTATION: DATE OF DICTATION: 06/06/2019 HISTORY: The patient is a 58-year-old female evaluated for possible abscess. The patient underwent a Lisha procedure with washout of peritonitis on May 06, 2019, after developing acute diverticulitis with perforated viscus and peritonitis. At that time, she was noted to have cloudy peritoneal fluid, which was evacuated, and lavage was performed. J-P drains were left in place. She reports that since the surgery she has had intermittent drainage from the surgical wound. She is now admitted on June 05, 2019, with complaints of right-sided abdominal pain, which began abruptly on the evening of admission. She presented to the emergency room where a CAT scan of the abdomen and pelvis was performed. The findings were consistent with a high-grade partial small-bowel obstruction as well as a small air fluid collection within the anterior abdominal wall consistent with a seroma versus postoperative abscess. She was empirically treated with Zosyn. She was seen in consultation by surgery. A bedside incision and drainage was performed of the surgical wound. According to the patient, some purulent fluid was obtained. She did notice some malodorous presentation of fluid from the wound at times. She denied any associated fever or chills. PAST MEDICAL HISTORY: Positive for diverticulitis, status post perforated diverticulitis with peritonitis, hypertension, hyperlipidemia, obstructive sleep apnea, hiatal hernia. PAST SURGICAL HISTORY: Status post hysterectomy, right total knee replacement. ALLERGIES: No known allergies. MEDICATIONS: Include Tylenol, Lovenox, hydromorphone, metoprolol, morphine. SOCIAL HISTORY: She resides in the community. Nonsmoker. Occasional ETOH. SYSTEMS REVIEW: Neurologic: No loss of consciousness, seizure activity, focal weakness. Cardiac: Negative chest pain or palpitations. Respiratory: Negative cough or sputum production. Gastrointestinal: As per HPI. Genitourinary: Negative for urinary tract infection. LABORATORY DATA: White count 6.5, hematocrit 32.0, platelet count 321, creatinine 0.6. Urine leukocyte esterase negative. PHYSICAL EXAMINATION: General: She is awake and alert. Supine in bed in no acute distress. Not acutely toxic appearing. Vital Signs: Temperature 98.4, blood pressure 134/72, pulse 70 regular, respirations 18 per minute. HEENT: Sclerae anicteric. Heart: Sounds S1, S2. Lungs: Clear. Abdomen: Soft. No tenderness elicited. There is a patent ostomy with soft, brown stool. The midline surgical wound has been opened. There is packing in place with bloody drainage noted. Extremities: Negative edema. Negative Homans sign. IMPRESSION: 1. Rule out infected seroma versus abscess. 2. Partial small-bowel obstruction. 3. Status post Lisha procedure for perforated diverticulitis with peritonitis. PLAN: Obtain blood cultures. Wound culture was apparently not sent. Empiric antibiotic coverage with Zosyn. Local wound care. Surgical follow up. Thank you for the kind referral. JANEL MARTIN M.D. [id number]
--- NOTE | 2019-06-06 14:20 | PN ---
Progress Note (short form) - Note Progress Note: surgery pt seen and examined. had no nausea over night. colostomy continues to produce with carrot particles. ct shows psbo vs ileus. contrast in mid small bowel abd- soft, nt, nd, incision clean Plan- full liquids. kub. poss d/c in am on liquids for 1 week. doubt need for abx. collection too small to drain and likely sterile. wound addressed with incision and draining.
[2019-06-06] MEDS ORDERED: DEXTROSE 5%-WATER - 50 ML IVPB ONE (18:17)
[2019-06-06] MEDS ORDERED: PIPERACILLIN/TAZOBACTAM 3.375 GM VIAL IVPB ONE (18:17)
[2019-06-06] MEDS: LACTATED RINGERS SOLUTION 1,000 ML IV SCH (18:22)
[2019-06-06] MEDS: PIPERACILLIN/TAZOB 3.375 GM 3.375 GM in DEXTROSE 5%-WATER - 50 ML IVPB SCH (18:23)
[2019-06-07] MEDS ORDERED: PIPERACILLIN/TAZOBACTAM 3.375 GM VIAL IVPB ONE ×3 (00:14→17:44)
[2019-06-07] MEDS ORDERED: DEXTROSE 5%-WATER - 50 ML IVPB ONE ×3 (00:14→17:45)
[2019-06-07] MEDS: PIPERACILLIN/TAZOB 3.375 GM 3.375 GM in DEXTROSE 5%-WATER - 50 ML IVPB SCH ×3 (01:19→17:55)
[2019-06-07] MEDS: ACETAMINOPHEN 1000 MG/100 ML VIAL (NON FORMULARY) IVPB PRN (01:33)
[2019-06-07] MEDS: LACTATED RINGERS SOLUTION 1,000 ML IV SCH ×2 (05:57→16:27)
--- NOTE | 2019-06-07 09:06 | PN ---
Progress Note, Physician - Current Medication List Current Medications: Active Medications Acetaminophen (Ofirmev Injection -) 1,000 mg IVPB Q6H PRN PRN Reason: PAIN LEVEL 1-5 Last Admin: 06/07/19 01:33 Dose: 1,000 mg Enoxaparin Sodium (Lovenox -) 40 mg SQ DAILY YUE Last Admin: 06/06/19 09:33 Dose: 40 mg Hydromorphone HCl (Dilaudid Vial -) 2 mg IVPB Q6H PRN PRN Reason: PAIN LEVEL 6-10 Last Admin: 06/06/19 09:32 Dose: 2 mg Lactated Ringer's (Lactated Ringers Solution) 1,000 mls @ 75 mls/hr IV ASDIR YUE Last Admin: 06/07/19 05:57 Dose: 75 mls/hr Piperacillin Sod/Tazobactam (Sod 3.375 gm/ Dextrose) 50 mls @ 100 mls/hr IVPB Q8H-IV YUE; Protocol Last Admin: 06/07/19 01:19 Dose: 100 mls/hr Metoprolol Tartrate (Lopressor Injection -) 5 mg IVPB Q4H PRN PRN Reason: HYPERTENSION Ondansetron HCl (Zofran Injection) 4 mg IVPUSH Q6H PRN PRN Reason: NAUSEA - Objective Vital Signs: Vital Signs Temperature 98 F 06/07/19 06:00 Pulse Rate 56 L 06/07/19 06:00 Respiratory Rate 20 06/07/19 06:00 Blood Pressure 126/75 06/07/19 06:00 O2 Sat by Pulse Oximetry (%) 98 06/06/19 21:00 Cardiovascular: Yes: S1, S2 Respiratory: Yes: Regular, CTA Bilaterally Gastrointestinal: Yes: Normal Bowel Sounds, Soft, Tenderness (minimal) Labs: CBC, BMP 06/06/19 08:26 06/06/19 06:00 Problem List - Problems (1) Partial small bowel obstruction Assessment/Plan: -Surgical consult noted -Diet per surgery -ct scan results noted--xray contrast with stool -Pain management -abx per id Code(s): K56.600 - PARTIAL INTESTINAL OBSTRUCTION, UNSPECIFIED TO CAUSE (2) Abdominal pain Code(s): R10.9 - UNSPECIFIED ABDOMINAL PAIN Qualifiers: Abdominal location: right lower quadrant Qualified Code(s): R10.31 - Right lower quadrant pain (3) Colostomy status Code(s): Z93.3 - COLOSTOMY STATUS (4) Pelvic fluid collection Assessment/Plan: surgical follow up noted abx per id Code(s): R18.8 - OTHER ASCITES
[2019-06-07] MEDS: ENOXAPARIN NA (PORCINE) 40 MG/0.4 ML DISP.SYRIN SQ SCH (09:52)
--- NOTE | 2019-06-07 10:41 | PN ---
Progress Note (short form) - Note Progress Note: surgery pt seen and exmained. remains well. kub with constrast in colon. colostomy producing. tolerating full liquids abd- soft, nt Plan- surgically stable for d/c. irrigate wound/shower daily with light packing. doubt needs abx.
[2019-06-08] MEDS ORDERED: PIPERACILLIN/TAZOBACTAM 3.375 GM VIAL IVPB ONE ×2 (01:50→10:28)
[2019-06-08] MEDS ORDERED: DEXTROSE 5%-WATER - 50 ML IVPB ONE ×2 (01:51→10:29)
[2019-06-08] MEDS: PIPERACILLIN/TAZOB 3.375 GM 3.375 GM in DEXTROSE 5%-WATER - 50 ML IVPB SCH ×3 (02:15→17:29)
--- NOTE | 2019-06-08 07:11 | DS ---
Physical Examination Vital Signs: Vital Signs Temperature 97.9 F 06/08/19 06:34 Pulse Rate 54 L 06/08/19 06:34 Respiratory Rate 20 06/08/19 06:34 Blood Pressure 138/80 06/08/19 06:34 O2 Sat by Pulse Oximetry (%) 98 06/07/19 09:00 Cardiovascular: Yes: S1, S2 Respiratory: Yes: Regular, CTA Bilaterally Gastrointestinal: Yes: Normal Bowel Sounds, Soft, Other (colostomy functioning) Labs: CBC, BMP 06/06/19 08:26 06/06/19 06:00 Discharge Summary Problems reviewed: Yes Reason For Visit: SMALL BOWELL OBSTRUCTION Current Active Problems Abdominal pain (Acute) Partial small bowel obstruction (Acute) Pelvic fluid collection (Acute) Hospital Course: - Problems (1) Partial small bowel obstruction Assessment/Plan: -Surgical consult noted--cleared for dc -Diet per surgery -ct scan results noted--xray contrast with stool -Pain management -abx per id Code(s): K56.600 - PARTIAL INTESTINAL OBSTRUCTION, UNSPECIFIED TO CAUSE (2) Abdominal pain Code(s): R10.9 - UNSPECIFIED ABDOMINAL PAIN Qualifiers: Abdominal location: right lower quadrant Qualified Code(s): R10.31 - Right lower quadrant pain (3) Colostomy status Code(s): Z93.3 - COLOSTOMY STATUS (4) Pelvic fluid collection Assessment/Plan: surgical follow up noted abx per id Code(s): R18.8 - OTHER ASCITES dc planning if labs ok Condition: Stable - Instructions Referrals: Porter Pereira MD [Primary Care Provider] - 1 Week Jose A Reddy MD [Staff Physician] - 1 Week - Home Medications Comprehensive Discharge Medication List: Ambulatory Orders Duloxetine HCl [Cymbalta -] 60 mg PO BID 02/28/13 Atorvastatin Ca [Lipitor] 20 mg PO HS 03/19/13 Flecainide Acetate 100 mg PO DAILY 03/12/18 Cyanocobalamin (Vitamin B-12) [Cyanocobalamin Injection] 1,000 mcg IJ WEEKLY 05/05/19 Acetaminophen [Tylenol .Regular Strength -] 650 mg PO Q6H tablet 05/11/19 Valacyclovir HCl [Valtrex -] 500 mg PO BID #14 tablet 05/11/19
[2019-06-08 08:55] LABS: EOS % 4.2 % (0-4.5); HEMOGLOBIN 12.1 GM/dL (10.7-15.3); LYMPH % 28.5 % (8-40); MCH 29.9 pg (25.7-33.7); MCHC 33.5 g/dl (32.0-36.0); MEAN CELL VOLUME 89.2 fl (80-96); MEAN PLT VOLUME 7.1 fl (7.5-11.1); NEUT % 58.3 % (42.8-82.8); PLATELET COUNT 343 K/MM3 (134-434); RBC 4.04 M/mm3 (3.60-5.2); RDW 14.7 % (11.6-15.6)
[2019-06-08 09:24] LABS: ALBUMIN 3.5 g/dl (3.4-5.0); BILIRUBIN,TOTAL 0.5 mg/dL (0.2-1); BLOOD UREA NITROGEN 3.9 mg/dL (7-18); CALCIUM 9.6 mg/dL (8.5-10.1); CREATININE 0.6 mg/dL (0.55-1.3); POTASSIUM 4.2 mmol/L (3.5-5.1)
[2019-06-08] MEDS: ENOXAPARIN NA (PORCINE) 40 MG/0.4 ML DISP.SYRIN SQ SCH (10:31)
[2019-06-08] MEDS ORDERED: ACETAMINOPHEN 1000 MG/100 ML VIAL (NON FORMULARY) IVPB PRN (16:29)
[2019-06-08 17:29] VITALS: BP 151/56; PULSE 59; TEMP 98.2
== END 2019-06-08 18:31 | disposition home health service (06) | DRG 389 ==
LOC: JER 02:25 → JERBED 08:33 → J8W 17:13
PROVIDERS: ADMIT Family Medicine; ATTEND Family Medicine
DX: K56.600 Partial intestinal obstruction, unspecified as to cause (principal); R18.8 Other ascites; I10 Essential (primary) hypertension; Z93.3 Colostomy status; E78.5 Hyperlipidemia, unspecified; I34.0 Nonrheumatic mitral (valve) insufficiency; G47.30 Sleep apnea, unspecified; D64.9 Anemia, unspecified; M79.7 Fibromyalgia; K57.90 Diverticulosis of intestine, part unspecified, without perforation or abscess without bleeding; K44.9 Diaphragmatic hernia without obstruction or gangrene
CPT/HCPCS: 36415; 74018-TC-FY; 74176-TC; 74177-TC; 80053; 81003; 85025; 87040; 87086; 99283-25; J0131